=== PATIENT | male | born 1950 | race Caucasian/White ===

== ENCOUNTER 2018-08-27 08:12 | Inpatient (IN) | payer MEDICARE, BC ==
--- NOTE | 2018-08-20 11:09 | HP ---
HISTORY AND PHYSICAL: DATE OF ADMISSION/SURGERY: 08/27/18 DATE OF OFFICE VISIT: 08/17/18 SURGEON: Brittnee Narayanan MD* (dictated by LANCE Coreas). PROCEDURE: Right total knee arthroplasty. CHIEF COMPLAINT: Right knee pain. PRIMARY CARE PHYSICIAN: Dr. Malika Espinosa. HISTORY OF PRESENT ILLNESS: Mr. Davalos is a 67-year-old gentleman with complaints of right knee pain. He has failed conservative treatment and elected to proceed with a right total knee arthroplasty. PAST MEDICAL HISTORY: 1. Ulcerative colitis. 2. Hypertension. 3. Depression. 4. Anxiety. 5. Factor V Leiden. 6. History of DVT, bilateral lower extremities. PAST SURGICAL HISTORY: 1. Left rotator cuff repair. 2. Right ulnar nerve decompression. CURRENT MEDICATIONS: 1. Multivitamin. 2. Glucosamine and chondroitin. 3. Probiotics. 4. Vitamin C. 5. Fish oil. 6. Sulfasalazine 500 mg two tabs 5 times a day. 7. Losartan potassium 50 mg. 8. Tramadol 50 mg as needed. ALLERGIES: No known drug allergies. FAMILY HISTORY: Cancer and coronary artery disease. SOCIAL HISTORY: This is a 67-year-old gentleman who lives alone. He does not smoke or use drugs. REVIEW OF SYSTEMS: A complete 14-point review of systems was reviewed with the patient. It is positive for history of DVT in bilateral lower extremities, occasional palpitations, nausea and vomiting with anesthesia. He denies history of hepatitis or HIV. PHYSICAL EXAMINATION GENERAL: He is well developed, well nourished, in no acute distress. VITAL SIGNS: He stands 68 inches tall, weighs 168 pounds, blood pressure 120/68 , heart rate 74. HEENT: Normocephalic, atraumatic. NECK: Supple. No palpable lymph nodes. PULMONARY: Lungs are clear to auscultation bilaterally. CARDIO: Regular rate and rhythm. Strong S1 and S2. ABDOMEN: Soft, nontender, nondistended. NEUROLOGICAL: He is alert and oriented x3. MUSCULOSKELETAL: Right lower extremity: The skin is intact. There are no open wounds or abrasions. There is a moderate effusion of the right knee joint. There is a severe varus deformity of 15 degrees. Range of motion is 15 to 100 degrees of flexion. He has 2+ dorsalis pedis pulse and intact sensation. ASSESSMENT AND PLAN: Mr. Davalos is a 67-year-old gentleman with end-stage osteoarthritis of the right knee pain. He has failed conservative treatment and elected to proceed with a right total knee arthroplasty. The surgery is scheduled for 08/27/[address] Narayanan discussed the risks and benefits of the surgery at today's visit and all of his questions were answered. He will follow up with Dr. Narayanan 2 weeks after the surgery. Postoperatively, he will be placed on Xarelto for DVT prophylaxis per Dr. Espinosa and no TXA will be used in this patient. LANCE COREAS [id number]/[facility] #: [id number] MTDD
[~2018-08-27 08:12] MED LIST: Acetaminophen TAB* 325 MG ONE; Buffered Lidocaine 1% SYRIN* 1 ML/SYRINGE INTRADERM ONE; Dexamethasone IV* 4 MG/ML 1 ML (4 MG) ONE; Famotidine TAB* 20 MG ONE; Gabapentin CAP(*) 300 MG ONE; Lactated Ringers 1000 ML Bag* 1,000 ML IV SCH; Lidocaine 1%* 5 ML VIAL ONE; ROPIVACAINE 5 MG/ML 30 ML BTL (0.5%) ONE; ceFAZolin 2 GM PREMIX in ORs 2 GM/50 ML BAG IVPB ONE; celeCOXIB CAP* 100 MG ONE
--- OUTSIDE RECORDS SUMMARY | 2018-08-27 08:17 | XMS REPORT | Continuity of Care Document ---
:1950 External Reference #:[id number] Author Name LANCE Lee Address [address], [place] [address] Care Team Providers Name Role Phone Malika Espinosa MD Primary Care Physician Unavailable Payers Date Identification Numbers Payment Provider Subscriber Policy Number: [id number] Medicare Rosemary Davalos PayID: [id number] [address] [place] [address] Expires: 2018 Policy Number: [id number] Medicare Rosemary Mosquedast PayID: [id number] [address] [place] [address] Effective: 2012 Policy Number: [id number] [facility] Rosemary Mosquedast PayID: [id number] [address] [address] Expires: 2012 Policy Number: [id number] [facility] Rosemary Mosquedast PayID: [id number] [place] [address] Advance Directives Description No Information Available Problems Active Problems Provider Date Ulcerative colitis Linda Perez M.D., FACP Onset: 12/29/2010 Benign essential hypertension Linda Perez M.D., FACP Onset: 12/29/2010 Thrombophlebitis of the femoral vein Linda Perez M.D., FACP Onset: 2010 Depressive disorder Linda Perez M.D., FACP Onset: 02/01/2011 Full thickness rotator cuff tear Afsaneh Gutierrez MD Onset: 01/17/2017 Localized, primary osteoarthritis Brittnee Narayanan M.D. Onset: 10/29/2014 Headache Khoi Hathaway M.D. 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 Cigarette Use Quit 31 Years Ago Tobacco Use Start: Unknown Never Smoked Cigars Tobacco Use Start: Unknown Never Smoked A Pipe Smoking Status Reviewed: 08/17/18 Never Smoked A Pipe Smokeless Tobacco Never Used Smokeless Tobacco ETOH Use Denies alcohol use Tobacco Use Start: Unknown End: Patient is a former smoker quit 1988 Unknown Exercise Type/Frequency Exercises regularly Allergies, Adverse Reactions, Alerts Active Allergies Reaction Severity Comments Date No Known Drug Allergy 01/21/2010 Medications Active Medications SIG Qnty Indications Ordering Provider Date Tramadol HCL 2 tabs by mouth 60tabs 719.88 Khoi Hathaway, 02/21/2012 50mg every night M.D. Tablets Sulfazine Ec Take Two Tablets 300tabs Linda Perez, 02/25/2011 500mg By Mouth Five M.D., FACP Tablets DR Times A Day Losartan Potassium Take One Tablet 90tabs 401.1 Linda Perez, 02/07/2011 50mg By Mouth Every M.D., FACP Tablets Day Multi-Day Vitamins 1 po qd Unknown Tablets Glucosamine 1 po qd Unknown Chondroitin 1500 Complex 1500Com Capsules Probiotic Acidophilus once a day 30caps Unknown Capsules Vitamin C 1 po qd Unknown 500mg Capsules Fish Oil 1 po qd 90caps Unknown 1200mg Capsules History Medications Gabapentin 4 tabs by mouth qpm 180caps 356.8 Mariajose Carlson, 09/09/2013 - 100mg M.D. 11/27/2017 Capsules Xanax one by mouth up to 20tabs 300.00 Linda Perez, 08/12/2013 - 0.25mg Tablets three times daily as M.D., FACP 03/14/2014 needed for anxiety Gabapentin Take Two Capsules By 180caps 719.49 Linda Perez, 04/08/2013 - 300mg Mouth AT Bedtime M.D., FACP 08/15/2013 Capsules Cymbalta 1 by mouth every day 30caps 719.49 Linda Perez, 12/27/2012 - 30mg Caps DR Olson, FACP 01/11/2013 Part Gabapentin 1 po hs (says he is 719.49 Linda Perez, 08/29/2012 - 400mg taking 500mg) M.D., FACP 04/08/2013 Capsules Viibryd 1 po qd 30tabs 311 Linda Perez, 08/29/2012 - 40mg Tablets M.D., FACP 12/27/2012 Gabapentin 2 capsules at hour of 180caps 719.49 Linda Perez, 06/07/2012 - 300mg sleep M.D., FACP 08/29/2012 Capsules Gabapentin 1-3 at night 90caps 719.49 Linda Perez, 04/05/2012 - 100mg M.D., FACP 06/07/2012 Capsules Atorvastatin Calcium Take One Tablet By 90tabs 272.0 Linda Perez, 2011 - Mouth Once Daily M.D., FACP 03/14/2014 10mg Tablets Hydrocodone/Acetamin 1-2 tabs by mouth 30tabs 719.88 Linda Perez, 2011 - ophen every 6 hours as M.D., FACP 12/27/2012 5-325mg Tablets needed Viagra Take One Tablet By 12tabs Lindaamanda Perez, 08/01/2011 - 50mg Tablets Mouth 1 Hour Before M.D., FACP 03/13/2013 Rossie as Needed Staxyn one by mouth as 15tabs 607.89 Linda Perez, 02/28/2011 - 10mg Tablets needed. M.D., FACP 08/01/2011 Dispers Doxycycline Hyclate take two at one time 2caps Linda Perez, 02/09/2011 - M.D., FACP 02/28/2011 100mg Capsules Coumadin Take as Directed 60tabs Linda Perez, 01/31/2011 - 5mg Tablets M.D., FACP 02/21/2012 Coumadin two daily as directed 60units Linda Perez, 01/26/2011 - 5mg Solution M.D., FACP 01/31/2011 Rec Lovenox 1 subcutaneously q12h 8units Linda Perez, 01/26/2011 - 100mg/ml as directed M.D., FACP 01/31/2011 Solution Percocet 1-2 po q4h prn pain 40tabs Linda Perez, 12/29/2010 - 5-325mg M.D., FACP 02/28/2011 Tablets Cymbalta 1 by mouth every day 14caps 311 Linda Perez, 12/29/2010 - 30mg Caps DR Olson, FACP 03/16/2011 Part Vicodin 1 by mouth every 12 20tabs Linda Perez, 08/06/2010 - 5-500mg hours as needed for M.D., FACP 12/29/2010 Tablets pain Sulfasalazine 2 tabs four times 240tabs Linda Perez, 02/25/2010 - 500mg daily M.D., FACP 02/25/[address] Sulfasalazine 2 tabs four-five 240tabs Linda Perez, 02/01/2010 - 500mg times daily M.D., FACP 02/25/2010 Tablets Wellbutrin XL 1 tablet q 2 days 90tabs Linda Perez, 01/07/2010 - 150mg M.D., FACP 02/07/2011 Tablets ER 24HR Viagra po 1 tab 1h before 12tabs Linda Perez, 01/07/2010 - 50mg Tablets intercourse prn M.D., FACP 01/07/2010 Cialis 1 By Mouth 1 Hour 12tabs Linda Perez, 01/07/2010 - 10mg Tablets Before Rossie as M.D., FACP 02/25/2010 Needed Physical Therapy Linda Perez, - R M.D., FACP 02/25/2010 Hip/Knee Pain Celebrex 1 po qd 30caps Unknown - 100mg 12/29/2010 Capsules Vitamin B Complex 1 po qd Unknown - 04/05/2012 Capsules Bupropion HCL ER 1 by mouth every day 90tabs Unknown - (XL) 11/27/2017 150mg Tablets ER 24HR Medications Administered in Office Medication SIG Qnty Indications Ordering Provider Date Triamcinolone (Kenalog) Afsaneh Gutierrez MD 06/22/2018 Injection Triamcinolone (Kenalog) Afsaneh Gutierrez MD 06/22/2018 Injection Triamcinolone (Kenalog) Afsaneh Gutierrez MD 11/28/2017 Injection Triamcinolone (Kenalog) Afsaneh Gutierrez MD 11/28/2017 Injection Triamcinolone (Kenalog) Afsaneh Gutierrez MD 01/17/2017 Injection Triamcinolone (Kenalog) Afsaneh Gutierrez MD 01/17/2017 Injection Triamcinolone (Kenalog) Afsaneh Gutierrez MD 10/28/2016 Injection Triamcinolone (Kenalog) Afsaneh Gutierrez MD 10/28/2016 Injection Depomedrol 40MG Enid San M.D. 07/25/2016 Injection Immunizations CPT Code Status Date Vaccine Lot # [id number] Given 03/13/2013 Flu Vaccine Split Virus Preservative Free For [id number] Indiv 3Yr Older [id number] Given 04/05/2012 Zoster (Zostavax) [id number] Given 02/21/2012 Fluvirin Im 3Yrs And Older [id number] Given 01/27/2011 Influenza Virus 3Yrs & Over [id number] 93739 Given 02/25/2010 Influenza Virus 3Yrs & Over Vital Signs Date Vital Result Comment 08/17/2018 1:34pm Height 68 inches 5'8" Weight 168.50 lb Heart Rate 74 /min BP Systolic 120 mmHg BP Diastolic 68 mmHg Body Temperature 97.5 F Pain Level 8 BMI (Body Mass Index) 25.6 kg/m2 07/20/2018 4:02pm Height 68 inches 5'8" Weight 167.00 lb Heart Rate 70 /min BP Systolic 130 mmHg BP Diastolic 74 mmHg Respiratory Rate 20 /min Pain Level 6 BMI (Body Mass Index) 25.4 kg/m2 06/22/2018 10:36am Height 68 inches 5'8" Weight 170.00 lb BP Systolic 124 mmHg BP Diastolic 62 mmHg Pain Level 5 BMI (Body Mass Index) 25.8 kg/m2 04/16/2018 3:56pm Height 68 inches 5'8" Weight 167.00 lb Heart Rate 167 /min BP Systolic 167 mmHg BP Diastolic 80 mmHg BMI (Body Mass Index) 25.4 kg/m2 12/11/2017 2:21pm Height 69 inches 5'9" Weight 172.00 lb BP Systolic 116 mmHg BP Diastolic 69 mmHg Respiratory Rate 16 /min Pain Level 2 BMI (Body Mass Index) 25.4 kg/m2 11/28/2017 1:11pm Height 69 inches 5'9" Weight 175.00 lb Heart Rate 67 /min Respiratory Rate 15 /min Pain Level 6 BMI (Body Mass Index) 25.8 kg/m2 11/24/2017 1:12pm Height 69 inches 5'9" Weight 181.00 lb BP Systolic 120 mmHg BP Diastolic 76 mmHg Body Temperature 97.8 F BMI (Body Mass Index) 26.7 kg/m2 01/17/2017 1:04pm Height 69 inches 5'9" Weight 196.00 lb Heart Rate 76 /min BP Systolic 128 mmHg BP Diastolic 81 mmHg Pain Level 6 BMI (Body Mass Index) 28.9 kg/m2 10/28/2016 9:25am Height 69 inches 5'9" Weight 191.00 lb BP Systolic 140 mmHg BP Diastolic 81 mmHg Respiratory Rate 18 /min Pain Level 7 BMI (Body Mass Index) 28.2 kg/m2 08/24/2016 3:34pm Height 69 inches 5'9" Weight 188.00 lb Heart Rate 79 /min BP Systolic 127 mmHg BP Diastolic 77 mmHg Body Temperature 97.4 F Pain Level 3 BMI (Body Mass Index) 27.8 kg/m2 07/25/2016 11:10am Height 69 inches 5'9" Weight 193.00 lb Heart Rate 78 /min BP Systolic 136 mmHg BP Diastolic 82 mmHg Respiratory Rate 18 /min Body Temperature 98.7 F Pain Level 5 BMI (Body Mass Index) 28.5 kg/m2 10/29/2014 4:32pm Height 69 inches 5'9" Weight 193.00 lb Heart Rate 76 /min BP Systolic 139 mmHg BP Diastolic 76 mmHg Pain Level 5 BMI (Body Mass Index) 28.5 kg/m2 10/28/2014 11:50am Height 69 inches 5'9" Weight 200.00 lb Heart Rate 56 /min BP Systolic Sitting 128 mmHg BP Diastolic Sitting 72 mmHg Respiratory Rate 16 /min BMI (Body Mass Index) 29.5 kg/m2 06/24/2014 3:48pm Height 69 inches 5'9" Heart Rate 79 /min BP Systolic Sitting 128 mmHg BP Diastolic Sitting 70 mmHg Respiratory Rate 16 /min O2 % BldC Oximetry 97 % 03/18/2014 3:14pm Height 69 inches 5'9" Weight 191.00 lb Heart Rate 80 /min BP Systolic Sitting 130 mmHg BP Diastolic Sitting 78 mmHg Respiratory Rate 16 /min BMI (Body Mass Index) 28.2 kg/m2 09/09/2013 1:40pm Weight 200.00 lb w/shoes Heart Rate 84 /min BP Systolic Sitting 112 mmHg BP Diastolic Sitting 68 mmHg Body Temperature 98.3 F 09/06/2013 10:30am Weight 201.50 lb Heart Rate 88 /min BP Systolic Sitting 124 mmHg BP Diastolic Sitting 64 mmHg Body Temperature 97.8 F 08/21/2013 4:09pm Weight 201.00 lb Heart Rate 70 /min BP Systolic Sitting 124 mmHg BP Diastolic Sitting 80 mmHg 08/15/2013 12:55pm Weight 201.50 lb with shoes Heart Rate 76 /min BP Systolic 144 mmHg BP Diastolic 78 mmHg Respiratory Rate 16 /min Body Temperature 98.4 F 08/12/2013 2:35pm Heart Rate 88 /min BP Systolic Sitting 130 mmHg BP Diastolic Sitting 86 mmHg 08/12/2013 9:56am Weight 202.00 lb Heart Rate 84 /min BP Systolic Sitting 130 mmHg BP Diastolic Sitting 68 mmHg Body Temperature 98.1 F 04/08/2013 9:48am Height 68.5 inches 5'8.50" Weight 202.00 lb Heart Rate 98 /min BP Systolic Sitting 142 mmHg BP Diastolic Sitting 80 mmHg BMI (Body Mass Index) 30.3 kg/m2 03/13/2013 9:25am Weight 207.25 lb Heart Rate 80 /min BP Systolic 132 mmHg BP Diastolic 66 mmHg 01/11/2013 3:47pm Weight 208.75 lb Heart Rate 86 /min BP Systolic Sitting 130 mmHg BP Diastolic Sitting 78 mmHg 12/27/2012 4:25pm Weight 210.00 lb Heart Rate 72 /min BP Systolic Sitting 130 mmHg BP Diastolic Sitting 70 mmHg 08/29/2012 9:15am Weight 210.00 lb Heart Rate 80 /min BP Systolic Sitting 132 mmHg BP Diastolic Sitting 84 mmHg 06/06/2012 2:51pm Height 68.5 inches 5'8.50" Weight 217.00 lb Heart Rate 78 /min BP Systolic Sitting 130 mmHg BP Diastolic Sitting 70 mmHg BMI (Body Mass Index) 32.5 kg/m2 04/05/2012 2:39pm Height 68.5 inches 5'8.50" Weight 215.00 lb Heart Rate 82 /min BP Systolic Sitting 138 mmHg BP Diastolic Sitting 80 mmHg BMI (Body Mass Index) 32.2 kg/m2 02/21/2012 9:59am Height 69.25 inches 5'9.25" Weight 219.00 lb Heart Rate 80 /min BP Systolic Sitting 142 mmHg BP Diastolic Sitting 76 mmHg BMI (Body Mass Index) 32.1 kg/m2 05/11/2011 4:09pm Height 69.25 inches 5'9.25" Weight 216.00 lb Heart Rate 80 /min BP Systolic Sitting 142 mmHg His BP machine 167/98, 151/96 BP Diastolic Sitting 80 mmHg His BP machine 167/98, 151/96 BMI (Body Mass Index) 31.7 kg/m2 03/16/2011 2:30pm Height 69.25 inches 5'9.25" Weight 211.00 lb Heart Rate 80 /min BP Systolic Sitting 124 mmHg BP Diastolic Sitting 70 mmHg BMI (Body Mass Index) 30.9 kg/m2 02/28/2011 11:01am Height 69.25 inches 5'9.25" Weight 205.00 lb Heart Rate 76 /min BP Diastolic 160 mmHg BP Systolic Sitting 160 mmHg BP Diastolic Sitting 82 mmHg BMI (Body Mass Index) 30.1 kg/m2 02/07/2011 10:35am Height 69.25 inches 5'9.25" Weight 215.00 lb Heart Rate 72 /min BP Systolic Sitting 162 mmHg BP Diastolic Sitting 84 mmHg BMI (Body Mass Index) 31.5 kg/m2 01/27/2011 1:23pm Height 69.25 inches 5'9.25" Weight 213.00 lb Heart Rate 78 /min BP Systolic Sitting 144 mmHg BP Diastolic Sitting 80 mmHg BMI (Body Mass Index) 31.2 kg/m2 01/25/2011 4:10pm Height 69.25 inches 5'9.25" Weight 209.00 lb Heart Rate 80 /min BP Systolic Sitting 140 mmHg L BP Diastolic Sitting 82 mmHg L BMI (Body Mass Index) 30.6 kg/m2 12/29/2010 2:36pm Height 69.25 inches 5'9.25" Weight 222.00 lb Heart Rate 80 /min BP Systolic Sitting 148 mmHg 142/92(lg.cuff)repeat BP Diastolic Sitting 90 mmHg 142/92(lg.cuff)repeat BMI (Body Mass Index) 32.5 kg/m2 02/25/2010 11:23am Weight 209.00 lb with shoes Heart Rate 78 /min BP Systolic 140 mmHg BP Diastolic 78 mmHg 01/25/2010 10:43am Weight 204.25 lb Heart Rate 68 /min BP Systolic 126 mmHg BP Diastolic 80 mmHg Results Test Date Facility Test Result H/L Range Note CBC Auto Diff 08/17/2018 [facility] White Blood 5.8 10^3/uL N 3.5-10.[address] [place] [address] [phone] Red Blood Count 4.62 10^6/uL N 4.18-5.48 Hemoglobin 14.2 g/dL N 14.0-18.0 Hematocrit 42 % N 36-46 Mean Corpuscular Volume 91 fL N 80-94 Mean Corpuscular Hemoglobin 31 pg N 27-31 Mean Corpuscular HGB Conc 34 g/dL N 31-36 Red Cell Distribution Width 13 % N 10.5-15 Platelet Count 292 10^3/uL N 150-450 Mean Platelet Volume 7.5 fL N 7.4-10.4 Abs Neutrophils 4.4 10^3/uL N 1.5-7.7 Abs Lymphocytes 1.0 10^3/uL N 1.0-4.8 Abs Monocytes 0.4 10^3/uL N 0-0.8 Abs Eosinophils 0 10^3/uL N 0-0.6 Abs Basophils 0 10^3/uL N 0-0.2 Abs Nucleated RBC 0 10^3/uL Granulocyte % 75.7 % Lymphocyte % 16.4 % Monocyte % 6.7 % Eosinophil % 0.6 % Basophil % 0.6 % Nucleated Red Blood Cells % 0 Urinalysis Profile 08/17/2018 [facility] Urine Color Yellow [address] [place] [address] [phone] Urine Appearance Clear Urine Specific [place] 1.013 N 1.010-1.030 Urine pH 6.0 N 5-9 Urine Urobilinogen Negative Negative Urine Ketones Negative Negative Urine Protein Negative Negative Urine Leukocytes Negative Negative Urine Blood Negative Negative * * Abnormal Negative 1 Urine Nitrite Negative Negative Urine Bilirubin Negative Negative Urine Glucose Negative Negative Comp Metabolic Panel 08/17/2018 [facility] Sodium 138 mmol/L N 135-145 [address] [place] [address] [phone] Potassium 4.1 mmol/L N 3.5-5.0 Chloride 104 mmol/L N 101-111 Co2 Carbon Dioxide 29 mmol/L N 22-32 Anion Gap 5 mmol/L N 2-11 Glucose 94 mg/dL N 70-100 Blood Urea Nitrogen 15 mg/dL N 6-24 Creatinine 0.80 mg/dL N 0.67-1.17 BUN/Creatinine Ratio 18.8 N 8-20 Calcium 9.6 mg/dL N 8.6-10.3 Total Protein 6.7 g/dL N 6.4-8.9 Albumin 4.5 g/dL N 3.2-5.2 Globulin 2.2 g/dL N 2-4 Albumin/Globulin Ratio 2.0 N 1-3 Total Bilirubin 0.50 mg/dL N 0.2-1.0 Alkaline Phosphatase 56 U/L N 34-104 Alt 14 U/L N 7-52 Ast 19 U/L N 13-39 Egfr Non- 96.1 >60 Egfr 116.3 >60 2 Inr/Protime 08/17/2018 [facility] Inr 0.94 N 0.77-1.[address] [place], [place] [id number] [phone] Laboratory test 08/17/2018 [facility] Partial 28.0 seconds N 26.0-36.[address] [place] [address] PTT [phone] Type & Screen 08/17/2018 [facility] Patient A Positive [address] [place] [address] [phone] Antibody Screen NEGATIVE Urine Culture And 08/17/2018 [facility] Urine Culture SEE RESULT [address] [place], [place] [address] [phone] CBC Auto Diff 12/05/2017 [facility] White Blood 6.9 10^3/uL N 3.5-[address] Count .8 [place], [place] [id number] [phone] Red Blood Count 4.61 10^6/uL N 4.00-5.40 Hemoglobin 14.3 g/dL N 14.0-18.0 Hematocrit 42 % N 42-52 Mean Corpuscular Volume 91 fL N 80-94 Mean Corpuscular Hemoglobin 31 pg N 27-31 Mean Corpuscular HGB Conc 34 g/dL N 31-36 Red Cell Distribution Width 13 % N 10.5-15 Platelet Count 283 10^3/uL N 150-450 Mean Platelet Volume 6.8 um3 Low 7.4-10.4 Abs Neutrophils 5.7 10^3/uL N 1.5-7.7 Abs Lymphocytes 0.8 10^3/uL Low 1.0-4.8 Abs Monocytes 0.4 10^3/uL N 0-0.8 Abs Eosinophils 0 10^3/uL N 0-0.6 Abs Basophils 0 10^3/uL N 0-0.2 Abs Nucleated RBC 0 10^3/uL Granulocyte % 82.9 % N 38-83 Lymphocyte % 10.9 % Low 25-47 Monocyte % 5.3 % N 0-7 Eosinophil % 0.4 % N 0-6 Basophil % 0.5 % N 0-2 Nucleated Red Blood Cells % 0.1 Laboratory test 12/05/2017 [facility] Anti Thrombin 94 % 80 - 130 [address] [place] [address] [phone] Protein S Antigen 86 % 65 - 160 5 Protein C Activity 109 % 70 - 150 6 Factor V Activity 51 % Abnormal 70 - 165 7 Protein S Activity 77 % 65 - 160 8 Protein C Ag 96 % 70-150 9 Cardiolipin 12/05/2017 [facility] Phospholipid Ab < 9.4 MPL 10 Igg/Igm [address] IgM, [place] [address] [phone] Phospholipid Ab IgG < 9.4 GPL 11 Laboratory test 12/05/2017 [facility] Cardiolipin Iga < 9.4 APL [address] [place] [address] [phone] Vitamin D, 25 09/06/2013 [facility] 25-Hydroxy Vitamin <4.0 ng/ mL N Hydroxy [address] D2 [place] [address] [phone] 25-Hydroxy Vitamin D3 40 ng/mL N 25-Hydroxy Vitamin D Total 40 ng/mL N 13 CBC With 09/06/2013 [facility] White Blood 4.7 10^3/uL Low 4.8 -10.8 Manual Diff [address] [place] [address] [phone] Red Blood Count 4.60 10^6/uL N 4.0-5.4 Hemoglobin 14.0 g/dL N 14.0-18.0 Hematocrit 41 % Low 42-52 Mean Corpuscular Volume 89 fL N 80-94 Mean Corpuscular Hemoglobin 31 pg N 27-31 Mean Corpuscular HGB Conc 34 g/dL N 31-36 Red Cell Distribution Width 13 % N 10.5-15 Platelet Count 265 10^3/uL N 150-450 Mean Platelet Volume 8 um3 N 7.4-10.4 Abs Neutrophils 3.2 10^3/uL N 1.5-7.7 Abs Lymphocytes 1.0 10^3/uL N 1.0-4.8 Abs Monocytes 0.4 10^3/uL N 0-0.8 Abs Eosinophils 0 10^3/uL N 0-0.6 Abs Basophils 0 10^3/uL N 0-0.2 Abs Nucleated RBC 0 10^3/uL N Neutrophil % 72 % N 38-83 Lymphocytes % 17 % Low 25-47 Monocytes % 7 % N 0-13 Eosinophils % 1 % N 0-6 Basophil % 1 % N 0-2 Reactive Lymph % 2 % N 0-6 RBC Morphology Normal N Normal Protein 09/06/2013 [facility] Total 7.1 g/dL N 6.3 - Electrophoresis [address] Protein(Pep) 7.9 [place] [address] [phone] Albumin 3.9 g/dL N 3.4-4.7 Alpha-1 Globulin 0.2 g/dL N 0.1-0.3 Alpha-2 Globulin 0.9 g/dL N 0.6-1.0 Beta Globulin 0.9 g/dL N 0.7-1.2 Gamma Globulin 1.2 g/dL N 0.6-1.6 Albumin/Globulin Ratio 1.24 N Impression See Comment N 14 Laboratory test 09/06/2013 [facility] Vitamin B12 527 pg/mL N 180-914 [address] [place] [address] [phone] Laboratory test 03/13/2013 [facility] TSH (Thyroid 1.83 0.34- 5.60 [address] Stimulating miu/[place] [address] Horm) [phone] CBC Auto Diff 03/13/2013 [facility] White Blood 4.7 Low 4.8- 10.[address] Count 10^3/[place] [address] [phone] Red Blood Count 4.50 10^6/uL 4.0-5.4 Hemoglobin 14.3 g/dL 14.0-18.0 Hematocrit 41 % Low 42-52 Mean Corpuscular Volume 92 fL 80-94 Mean Corpuscular Hemoglobin 32 pg High 27-31 Mean Corpuscular HGB Conc 35 g/dL 31-36 Red Cell Distribution Width 13 % 10.5-15 Platelet Count 244 10^3/uL 150-450 Mean Platelet Volume 8 um3 7.4-10.4 Abs Neutrophils 3.0 10^3/uL 1.5-7.7 Abs Lymphocytes 1.1 10^3/uL 1.0-4.8 Abs Monocytes 0.4 10^3/uL 0-0.8 Abs Eosinophils 0.1 10^3/uL 0-0.6 Abs Basophils 0 10^3/uL 0-0.2 Abs Nucleated RBC 0 10^3/uL Granulocyte % 64.9 % 38-83 Lymphocyte % 24.2 % Low 25-47 Monocyte % 8.6 % 1-9 Eosinophil % 1.4 % 0-6 Basophil % 0.9 % 0-2 Nucleated Red Blood Cells % 0 Laboratory test 03/13/2013 [facility] Lyme Disease Negative Negative [address] [place] [address] [phone] Comp Metabolic 03/13/2013 [facility] Sodium 139 mmol/L 133- 145 Panel [address] [place] [address] [phone] Potassium 4.4 mmol/L 3.5-5.0 Chloride 105 mmol/L 101-111 Co2 Carbon Dioxide 29.0 mmol/L 22-32 Anion Gap 5.0 mmol/L 2-11 Glucose 96 mg/dL 70-100 Blood Urea Nitrogen 8 mg/dL 6-24 Creatinine 0.90 mg/dL 0.50-1.40 BUN/Creatinine Ratio 8.9 8-20 Calcium 9.4 mg/dL 8.1-9.9 Total Protein 6.7 g/dL 6.2-8.1 Albumin 4.2 g/dL 3.2-5.2 Globulin 2.5 g/dL 2-4 Albumin/Globulin Ratio 1.7 1-3 Total Bilirubin 0.6 mg/dL 0.4-1.5 Alkaline Phosphatase 58 U/L 30-110 Alt 18 U/L 14-54 Ast 20 U/L 12-42 Egfr Non- 85.2 >60 Egfr 109.6 >60 18 Lipid Profile 03/13/2013 [facility] Triglycerides 84 mg/dL 40 -200 (Trig/Chol/HDL) [address] [place] [address] [phone] Cholesterol 191 mg/dL Less than 200 HDL Cholesterol 73 mg/dL High 40-60 19 Cholesterol/HDL Ratio 2.6 Average 1-4.44 LDL Cholesterol 101.2 High Less Than 100 20 Surgical 02/11/2013 [facility] S RUN DATE: [address] 02/13/ <[place] [address] NOTE> [phone] Lipid Profile 06/04/2012 [facility] Triglycerides 78 mg/dL 40 -200 (Trig/Chol/HDL) [address] [place] [address] [phone] Cholesterol 189 mg/dL Less than 200 HDL Cholesterol 81 mg/dL High 40-60 22 Cholesterol/HDL Ratio 2.3 Average 1-4.44 LDL Cholesterol 92.4 mg/dL Less Than 100 23 Liver Function 06/04/2012 [facility] Total Protein 5.8 g/dL Low 6.2-8.[address] [place] [address] [phone] Albumin 4.0 g/dL 3.2-5.2 Globulin 1.8 g/dL Low 2-4 Albumin/Globulin Ratio 2.2 1-3 Total Bilirubin 0.7 mg/dL 0.4-1.5 Direct Bilirubin 0.1 mg/dL 0.1-0.5 Indirect Bilirubin 0.6 mg/dL 0.3-1.0 Alkaline Phosphatase 58 U/L 30-110 Alt 18 U/L 14-54 Ast 21 U/L 12-42 Ua Routine 04/05/2012 [facility] Ua Specific [place] 1.010 Ua PH 6 Ua Color yellow Ua Appera clear Ua WBC neg Ua Protein trace Ua Glucose neg Ua Ketones neg Ua Bilirubin neg Ua Urobilinogen neg Ua Nitrite neg Ua Occult Blood neg Comp Metabolic Panel 03/27/2012 [facility] Sodium 140 mmol/L 133-145 [address] [place] [address] [phone] Potassium 4.2 mmol/L 3.5-5.0 Chloride 107 mmol/L 101-111 Co2 Carbon Dioxide 27.0 mmol/L 22-32 Anion Gap 6.0 mmol/L 2-11 Glucose 89 mg/dL 70-100 Blood Urea Nitrogen 16 mg/dL 6-24 Creatinine 0.90 mg/dL 0.50-1.40 BUN/Creatinine Ratio 17.8 8-20 Calcium 9.1 mg/dL 8.1-9.9 Total Protein 6.0 GM/DL Low 6.2-8.1 Albumin 3.8 GM/DL 3.2-5.2 Globulin 2.2 GM/DL 2-4 Albumin/Globulin Ratio 1.7 1-3 Total Bilirubin 0.7 mg/dL 0.1-1.0 24 Alkaline Phosphatase 57 U/L 30-110 Alt 17 U/L 14-54 Ast 20 U/L 12-42 Egfr Non- 85.5 >60 Egfr 110.0 >60 25 Lipid Profile 03/27/2012 [facility] Triglycerides 108 mg/dL 40-200 (Trig/Chol/HDL) [address] [place] [address] [phone] Cholesterol 255 mg/dL High Less than 200 HDL Cholesterol 71 mg/dL High 40-60 26 Cholesterol/HDL Ratio 3.6 AVERAGE 1-4.44 LDL Cholesterol 162.4 mg/dL High Less Than 100 27 Laboratory test 03/27/2012 [facility] Vitamin B12 422 pg/mL 180-914 28 finding [address] [place] [address] [phone] CBC With Manual 03/27/2012 [facility] White Blood 4.7 Low 4.8- 10.8 Diff 101 [facility] Count 10^3/[place] [address] [phone] Red Blood Count 4.44 10^6/uL 4.0-5.4 Hemoglobin 13.7 g/dL Low 14.0-18.0 Hematocrit 41 % Low 42-52 Mean Corpuscular Volume 91 fL 80-94 Mean Corpuscular Hemoglobin 31 pg 27-31 Mean Corpuscular HGB Conc 34 g/dL 31-36 Red Cell Distribution Width 13 % 10.5-15 Platelet Count 246 10^3/uL 150-450 Mean Platelet Volume 7 um3 Low 7.4-10.4 Abs Neutrophils 2.4 10^3/uL 1.5-7.7 Abs Lymphocytes 1.7 10^3/uL 1.0-4.8 Abs Monocytes 0.5 10^3/uL 0-0.8 Abs Eosinophils 0.1 10^3/uL 0-0.6 Abs Basophils 0 10^3/uL 0-0.2 Abs Nucleated RBC 0 10^3/uL Neutrophil % 55.0 % 38-83 Band % 1.0 % 0-8 Lymphocytes % 38.0 % 25-47 Monocytes % 2.0 % 0-13 Eosinophils % 3.0 % 0-6 Basophil % 1.0 % 0-2 Reactive Lymph % 0 % 0-6 Metamyelocytes % 0 % 0-2 Myelocytes % 0 % 0-1 Promyelocytes % 0 % Blast % 0 % RBC Morphology Normal Normal Vitamin D 1,25 05/27/2011 [facility] Vitamin D, 1,25 41 pg/mL 18-64 29 And Vitamin D,[address] [place] [address] [phone] Vitamin D, 25 05/27/2011 [facility] 25-Hydroxy <4.0 ng/mL () Hydroxy [address] Vitamin D2 [place] [address] [phone] 25-Hydroxy Vitamin D3 36 ng/mL () 25-Hydroxy Vitamin D Total 36 ng/mL () 30 Protime 05/27/2011 [facility] Inr 1.62 High 0.88-1.[address] [place] [address] [phone] Protime 19.5 SEC High 10.3-13.5 32 International Normalized 04/29/2011 [facility] Inr 2.08 High 0.88-1.13 [address] [place] [address] [phone] Protime 25.3 SEC High 10.3-13.5 34 Protime 03/31/2011 [facility] Inr 2.10 High 0.88-1.[address] [place] [address] [phone] Protime 26.4 SEC High 10.3-13.5 36 GC/Chlamydia 03/16/2011 [facility] M [address] <SEE NOTE> [place], [place] [id number] [phone] Syphilis 03/16/2011 [facility] Syphilis TNP Nonreactive Screen [address] [place] [address] [phone] RPR NON-REACTIVE Nonreactive RPR Titer TNP Pediatric/Maternal NO Herpes Simplex 03/16/2011 [facility] Herpes Simplex Negative Negative Type 1&[address] Type 1 [place] [address] [phone] Herpex Simplex Type 2 Igg POSITIVE Negative 38 Laboratory test 03/16/2011 [facility] Herpes Simplex Negative Negative [address] Type 1 2 Igm [place], [place] [phone] Lipid Profile 03/03/2011 [facility] Triglyceride 105 mg/dL 40 -200 (Trig/Chol/HDL) [address] [place], [place] [id number] [phone] Cholesterol 212 mg/dL High Less Than 200 40 High Density Lipoprotein 66 mg/dL High 40-60 41 Cholesterol/HDL Ratio 3.21 AVERAGE 1-4.97 Low Density Lipoprotein 125 mg/dL High Less Than 100 42 International Normalized 03/03/2011 [facility] Inr 2.36 High 0.88-1.13 [address] [place] [address] [phone] Protime 28.8 SEC High 10.3-13.5 44 International Normalized 02/24/2011 [facility] Inr 2.55 High 0.88-1.13 [address] [place], [place] [address] [phone] Protime 31.3 SEC High 10.3-13.5 46 International Normalized 02/21/2011 [facility] Inr 2.83 High 0.82-1.[address] [place], [place] [address]36 [phone] Protime 35.3 SEC High 10.2-14.8 48 International Normalized 02/17/2011 [facility] Inr 1.71 High 0.86-1.13 49 Ratio [address] [place] [address] [phone] Protime 21.4 SEC High 10.88-13.62 50 International Normalized 02/14/2011 [facility] Inr 1.47 High 0.82-1.17 51 Ratio [address] [place] [address] [phone] Protime 17.7 SEC High 10.2-14.8 52 International Normalized 02/11/2011 [facility] Inr 1.45 High 0.82-1.17 53 Ratio [address] [place] [address] [phone] Protime 17.5 SEC High 10.2-14.8 54 Liver Function 02/10/2011 [facility] Total Protein 6.3 GM/DL 6.2-8.1 Panel [address] [place] [address] [phone] Albumin 3.8 GM/DL 3.2-5.2 Globulin 2.5 GM/DL 2-4 Albumin/Globulin Ratio 1.5 1-3 Bilirubin Total 0.8 mg/dL 0.4-1.5 55 Bilirubin Direct 0.1 mg/dL 0.1-0.5 Indirect Bilirubin 0.7 mg/dL 0.3-1.0 56 Alkaline Phosphatase 56 U/L 39-117 Alt (SGPT) 33 U/L 17-63 57 Ast (Sgot) 24 U/L 12-42 58 Laboratory test 02/10/2011 [facility] PSA Screening 0.98 NG/ML 0-4 59 finding [address] [place] [address] [phone] Protime 02/03/2011 [facility] Inr 2.01 High 0.82-1.[address] [place] [phone] Protime 24.6 SEC High 10.2-14.8 61 Comp Metabolic Panel 02/03/2011 [facility] Sodium 138 mmol/L 135-145 [address] [place] [address] [phone] Potassium 4.0 mmol/L 3.5-5.0 Chloride 105 mmol/L 101-111 Co2 (Carbon Dioxide) 24.0 mmol/L 22-32 Anion Gap 9.0 mmol/L 2-11 62 Glucose 98 mg/dL 70-100 BUN 12 mg/dL 6-24 Creatinine 0.9 mg/dL 0.50-1.40 One Over Creatinine 1.11 BUN/Creatinine Ratio 13.3 8-20 Calcium 8.5 mg/dL 8.1-9.9 Total Protein 5.7 GM/DL Low 6.2-8.1 Albumin 3.8 GM/DL 3.2-5.2 Globulin 1.9 GM/DL Low 2-4 Albumin/Globulin Ratio 2.0 1-3 Bilirubin Total 0.5 mg/dL 0.4-1.5 63 Alkaline Phosphatase 51 U/L 39-117 Alt (SGPT) 128 U/L High 17-63 Ast (Sgot) 58 U/L High 12-42 eGFR Non- 85.8 > 60 eGFR 110.3 > 60 64 CBC Auto Diff 02/03/2011 [facility] White Blood 5.2 CUMM 4.8- 10.[address] [place] [address] [phone] Red Cell Count 4.14 CUMM Low 4.6-6.2 Hemoglobin 12.8 g/dL Low 14.0-18.0 Hematocrit 38 % Low 42-52 Mean Corpuscular Volume 91 um3 80-94 Mean Corpuscular Hemoglob 31 pg 27-31 Mean Corpuscular HGB Cone 34 g/dL 32-36 Redcell Distribution WDTH 12 % 10.5-15 Platelet Count 291 CUMM 150-450 Mean Platelet Volume 7.8 um3 7.4-10.4 Gran % 60.8 % 38-83 Lymph % 25.7 % 25-47 Mononuclear % 10.7 % High 1-9 Eosinophil % 2.2 % 0-6 Basophil % 0.6 % 0-2 Abs Lymphs 1.3 1.0-4.8 Abs Mononuclear 0.6 0-0.8 Absolute Neutrophil Count 3.2 1.5-7.7 Abs Eosinophils 0.1 0-0.6 Abs Basophils 0 0-0.2 International Normalized 01/31/2011 [facility] Inr 2.50 High 0.82-1.[address] [place] [address] [phone] Protime 31.0 SEC High 10.2-14.8 66 Laboratory test 01/28/2011 [facility] Vad NONREACTIVE Nonreactive [address] [place] [address] [phone] Protime 01/28/2011 [facility] Inr 1.40 High 0.82-1.[address] [place] [address] [phone] Protime 16.8 SEC High 10.2-14.8 69 Laboratory test 01/28/2011 [facility] Anti Thrombin 96 % 80- 130 [address] [address] [phone] Anti Thrombin III Activity 95 % 80-130 71 1 *Ascorbic acid is present which may interfere with detection of blood. 2 Because ethnic data is not always readily available, this report includes an eGFR for both -Americans and non- Americans. The National Kidney Disease Education Program (NKDEP) does not endorse the use of the MDRD equation for patients that are not between the ages of 18 and 70, are , have extremes of body size, muscle mass, or nutritional status, or are non- or non-. According to the National Kidney Foundation, irrespective of diagnosis, the stage of the disease is based on the level of kidney function: Stage Description GFR(mL/min/1.73 m(2)) 1 Kidney damage with normal or decreased GFR 90 2 Kidney damage with mild decrease in GFR 60-89 3 Moderate decrease in GFR 30-59 4 Severe decrease in GFR 15-29 5 Kidney failure <15 (or dialysis) 3 SEE RESULT BELOW Name: ROSEMARY DAVALOS : [address]: Brittnee Narayanan MD Acct: [id number] Unit: [id number] AGE: 67 Location: [facility] Re08/17/18 SEX: M Status: REG REF SPEC: [id number] GUILHERME: 08/17/[address] [facility] [address]: Brittnee Narayanan MD REQ: [id number] RECD: 08/17/18 STATUS: COMP OTHR DR: Sulaiman Valiente, DO Malika Espinosa MD _ SOURCE: URINE SPDESC: ORDERED: Urine Culture QUERIES: Urine Source: Clean Catch Procedure Result Reported Site Urine Culture Final 08/18/18- 1604 ML No Growth (<1,000 CFU/mL) * ML - Main Lab . END OF REPORT DEPARTMENT OF PATHOLOGY, [address] [place] [id number] Noble Izquierdo M.D. Director [facility] # [id number] 4 Direct factor Xa inhibitor therapy (rivaroxaban (Xarelto), apixaban (Eliquis), edoxaban (Savaysa)) may interfere with the functional Xa based AT assay and cause an overestimation of AT activity thus potentially masking diagnosis of AT deficiency. Suggest clinical correlation and consider repeat AT testing remote from direct factor Xa inhibitor therapy, if clinically indicated. ADDITIONAL INFORMATION This test has been modified from the kiln repairer's instructions. Its performance characteristics were determined by [facility] in a manner consistent with CLIA requirements. This test has not been cleared or approved by the U.S. Food and Drug Administration. Test Performed by: [facility] - [address] [address] 5 ADDITIONAL INFORMATION This test has been modified from the kiln repairer's instructions. Its performance characteristics were determined by [facility] in a manner consistent with CLIA requirements. This test has not been cleared or approved by the U.S. Food and Drug Administration. Test Performed by: [facility] - [address] [address] 6 ADDITIONAL INFORMATION This test has been modified from the kiln repairer's instructions. Its performance characteristics were determined by [facility] in a manner consistent with CLIA requirements. This test has not been cleared or approved by the U.S. Food and Drug Administration. Test Performed by: [facility] - [address] [address] 7 ADDITIONAL INFORMATION This test has been modified from the kiln repairer's instructions. Its performance characteristics were determined by [facility] in a manner consistent with CLIA requirements. This test has not been cleared or approved by the U.S. Food and Drug Administration. Test Performed by: [facility] - [address] [address] 8 Anticoagulants (for example oral direct thrombin inhibitors like dabigatran, anti-Xa inhibitors like rivaroxaban, apixaban or edoxaban), heparin levels greater than 1 U/mL, inhibitors of the APTT test system (for example lupus anticoagulant), inhibitors of bovine factor V (for example antibodies that may arise in patients treated with certain bovine topical thrombin preparations) may produce a falsely normal or elevated protein S activity result. Suggest clinical correlation and if indicated consider repeat assay of protein S activity and/or antigen in the absence of anticoagulation therapy. ADDITIONAL INFORMATION This test has been modified from the kiln repairer's instructions. Its performance characteristics were determined by [facility] in a manner consistent with CLIA requirements. This test has not been cleared or approved by the U.S. Food and Drug Administration. Test Performed by: [facility] - [address] [address] 9 Test Performed by: [facility] - [address] [address] 10 REFERENCE VALUE <15.0 (Negative) 11 REFERENCE VALUE <15.0 (Negative) Test Performed by: [facility] - [address] [address] 12 REFERENCE VALUE <15.0 (Negative) Test Performed by: [address] [address] 13 -- REFERENCE VALUE -- 25-HYDROXY D TOTAL (D2+D3) Optimum levels in the healthy population are 20-50, patients with bone disease may benefit from higher levels within this range. Test Performed by: [place] [address] Program Dir: Doroteo Frias III, M.D. 14 RESULT: No apparent monoclonal protein on serum electrophoresis. Test Performed by: [place] [address] Program Dir: Doroteo Frias III, M.D. 15 Normal Range 180 to 914 Indeterminate Range 145 to 180 Deficient Range <145 16 FASTING 17 Serologic response to B. burgdorferi infection is not detected, but cannot rule out early infection during which low or undetectable antibody levels to B. burgdorferi may be present. If clinically indicated, a new serum specimen should be submitted in 7-14 days. Test Performed by: [place] [address] Program Dir: Doroteo Frias III, M.D. 18 Because ethnic data is not always readily available, this report includes an eGFR for both -Americans and non- Americans. The National Kidney Disease Education Program (NKDEP) does not endorse the use of the MDRD equation for patients that are not between the ages of 18 and 70, are , have extremes of body size, muscle mass, or nutritional status, or are non- or non-. According to the National Kidney Foundation, irrespective of diagnosis, the stage of the disease is based on the level of kidney function: Stage Description GFR(mL/min/1.73 m(2)) 1 Kidney damage with normal or decreased GFR 90 2 Kidney damage with mild decrease in GFR 60-89 3 Moderate decrease in GFR 30-59 4 Severe decrease in GFR 15-29 5 Kidney failure <15 (or dialysis) 19 HDL Interpretation: Undesirable: High Risk: Less than 40 mg/dL Desirable: Low Risk: Greater than 60 mg/dL 20 LDL Interpretation: Low Risk Optimal Level: LDL Less than 100 mg/dL Near or Above Optimal: LDL 100-129 mg/dL Borderline High Risk: LDL 130-159 mg/dL High Risk: LDL 160-189 mg/dL Very High Risk: LDL Greater than 189 mg/dL 21 RUN DATE: 02/13/13 [facility] LAB LIVE PAGE 1 RUN TIME: 1606 [address] [place], [place] [address] Specimen Inquiry Name: ROSEMARY DAVALOS : [address]: Matias Hemphill MD Acct: [id number] Unit: [id number] AGE: 62 Location: ENDO Re02/11/13 SEX: M Status: REG REF SPEC: [id number] GUILHERME: 02/11/13- SUBM DR: Matias Hemphill MD REQ: [id number] RECD: 02/11/13 STATUS: BASSAM MALDONADO DR: Linda Perez MD _ ORDERED: LEVEL IV/6 FINAL DIAGNOSIS 1. Colon, cecum, biopsies: A. Mild focally active colitis; see comment. B. No evidence of dysplasia. 2. Colon, right, biopsies: Benign colonic mucosa with no significant pathologic abnormalities. 3. Colon, transverse, biopsies: Benign colonic mucosa with no significant pathologic abnormalities. 4. Colon, descending, biopsies: Benign colonic mucosa with no significant pathologic abnormalities. 5. Colon, sigmoid, biopsies: Benign colonic mucosa with no significant pathologic abnormalities. 6. Colon, rectum, biopsies: A. Benign colonic mucosa with mild crypt architecture distortion compatible with inactive chronic colitis. B. No evidence of dysplasia. COMMENTS: In specimen 1 focal acute cryptitis is identified. There is no evidence of chronic irritation or significant crypt architecture distortion. The significance of this finding is unknown. CONTINUED ON NEXT PAGE * ML=Testing performed at Main Lab DEPARTMENT OF PATHOLOGY, [facility] [employer] [place], [place] [address] Noble Izquierdo M.D. Director [facility] Permit #[id number] RUN DATE: 02/13/13 [facility] LAB LIVE PAGE 2 RUN TIME: [address] [facility] [employer] [place], [place] [address] Specimen Inquiry Patient: ROSEMARY DAVALOS [id number] (Continued) SPECIMEN COMMENTS (Continued) CLINICAL HISTORY Screening colonoscopy with ulcerative colitis POST-OPERATIVE DIAGNOSIS Screening colonoscopy into cecum, prep good - inactive colitis, no polyps. Surveillance biopsies obtained GROSS DESCRIPTION 1. The specimen is received in formalin labeled Rosemary Davalos, Cecal Biopsies, and consists of four portions of white-cisneros tissue that each measure 0.6 x 0.2 x 0.2 cm. Submitted entirely, one cassette. 2. The specimen is received in formalin labeled Rosemary Davalos, Right Colon Biopsies, and consists of multiple portions of cisneros-white tissue that in aggregate measure 1.0 x 0.4 x 0.2 cm. Submitted entirely, one cassette. 3. The specimen is received in formalin labeled Rosemary Davalos, Transverse Colon Biopsies, and consists of multiple portions of white-cisneros tissue that in aggregate measure 1.0 x 0.5 x 0.2 cm. Submitted entirely, one cassette. 4. The specimen is received in formalin labeled Rosemary Davalos, Descending Colon Biopsies, and consists of multiple portions of white-cisneros tissue that in aggregate measure 0.6 x 0.5 x 0.2 cm. Submitted entirely, one cassette. 5. The specimen is received in formalin labeled Rosemary Davalos, Sigmoid Colon Biopsies, and consists of multiple portions of white-cisneros tissue that in aggregate measure 1.0 x 0.8 x 0.2 cm. Submitted entirely, one cassette. 6. The specimen is received in formalin labeled Rosemary Davalos, Rectal Biopsies, and consists of multiple portions of white-cisneros tissue that in aggregate measure 0.6 x 0.5 x 0.2 cm. Submitted entirely, one cassette. CONTINUED ON NEXT PAGE * ML=Testing performed at Main Lab DEPARTMENT OF PATHOLOGY, [facility] [employer] [place] [place] [address] Noble Izquierdo M.D. Director [facility] Permit #[id number] RUN DATE: 02/13/13 [facility] LAB LIVE PAGE 3 RUN TIME: [address] [place] [address] Specimen Inquiry Patient: DAVALOSROSEMARY S [id number] (Continued) GROSS DESCRIPTION (Continued) Signed (signature on file) Florecita Snyder MD 1606 END OF REPORT * ML=Testing performed at Main Lab DEPARTMENT OF PATHOLOGY, [address] [place] [address] Noble Izquierdo M.D. Director [facility] Permit #[id number] 22 HDL Interpretation: Undesirable: High Risk: Less than 40 MG/DL Desirable: Low Risk: Greater than 60 MG/DL 23 LDL Interpretation: Low Risk Optimal Level: LDL Less than 100 MG/DL Near or Above Optimal: LDL 100-129 MG/DL Borderline High Risk: LDL 130-159 MG/DL High Risk: LDL 160-189 MG/DL Very High Risk: LDL Greater than 189 MG/DL 24 A metabolite of Naproxen, O-desmethylnaproxen, has been shown to interfere with the [place] method for measuring total bilirubin. Samples from patients who have taken Naproxen have shown spurious elevation in total bilirubin levels. 25 Because ethnic data is not always readily available, this report includes an eGFR for both -Americans and non- Americans. The National Kidney Disease Education Program (NKDEP) does not endorse the use of the MDRD equation for patients that are not between the ages of 18 and 70, are , have extremes of body size, muscle mass, or nutritional status, or are non- or non-. According to the National Kidney Foundation, irrespective of diagnosis, the stage of the disease is based on the level of kidney function: Stage Description GFR(mL/min/1.73 m(2)) 1 Kidney damage with normal or decreased GFR 90 2 Kidney damage with mild decrease in GFR 60-89 3 Moderate decrease in GFR 30-59 4 Severe decrease in GFR 15-29 5 Kidney failure <15 (or dialysis) 26 HDL Interpretation: Undesirable: High Risk: Less than 40 MG/DL Desirable: Low Risk: Greater than 60 MG/DL 27 LDL Interpretation: Low Risk Optimal Level: LDL Less than 100 MG/DL Near or Above Optimal: LDL 100-129 MG/DL Borderline High Risk: LDL 130-159 MG/DL High Risk: LDL 160-189 MG/DL Very High Risk: LDL Greater than 189 MG/DL 28 Fasting 29 Test Performed by: [facility] Dpt of Lab Med and Pathology [address] [place] [address] Program Dir: Doroteo Frias III, M.D. 30 -- REFERENCE VALUE -- 25-HYDROXY D TOTAL (D2+D3) Optimum levels in the normal population are 25-80 Test Performed by: [facility] Dpt of Lab Med and Pathology [address] [place] [address] Program Dir: Doroteo Frias III, M.D. 31 Recommended INR for Patients on Oral Anticoagulants Prophylaxis 2.0 - 3.0 Treatment of thrombosis 2.0 - 3.0 Prevention of embolism 2.0 - 3.0 Prevention of embolism from prosthetic heart valves 2.5 - 3.5 32 DIAGNOSIS,TREATMENT,AND THERAPY MUST BE BASED ON THE INR VALUE ALONE. 33 Recommended INR for Patients on Oral Anticoagulants Prophylaxis 2.0 - 3.0 Treatment of thrombosis 2.0 - 3.0 Prevention of embolism 2.0 - 3.0 Prevention of embolism from prosthetic heart valves 2.5 - 3.5 34 DIAGNOSIS,TREATMENT,AND THERAPY MUST BE BASED ON THE INR VALUE ALONE. 35 Recommended INR for Patients on Oral Anticoagulants Prophylaxis 2.0 - 3.0 Treatment of thrombosis 2.0 - 3.0 Prevention of embolism 2.0 - 3.0 Prevention of embolism from prosthetic heart valves 2.5 - 3.5 36 DIAGNOSIS,TREATMENT,AND THERAPY MUST BE BASED ON THE INR VALUE ALONE. 37 RUN DATE: 03/21/11 [facility] NMI LIVE PAGE 1 RUN TIME: 1232 Specimen Inquiry RUN USER: INTERFACE Name: ROSEMARY DAVALOS Status: REG REF Re03/16/11 Age/Sex: 60/M Unit#: [id number] Location: [facility] : [birth year] SPEC #: [id number] GUILHERME: 03/16/11 STATUS: COMP REQ #: [id number] RECD: 03/17/11-[address]: Elizabeth Zamarripa SOURCE: URINE ENTR: 03/17/11-[address]: MARK: ORDERED: GC/CHL APTIMA QUERIES: MEDENT REQUISITION # [id number] ACT WKST: GCCHL 03/21/11 #1 Procedure Result Verified Site > CHLAMYDIA TRACHOMATIS RNA Final 03/21/11- 1232 ML NEGATIVE FOR CHLAMYDIA TRACHOMATIS rRNA A negative result does not preclude the presence of a C.trachomatis or N.gonorrhoeae infection because results are dependent on adequate specimen collection, absence of inhibitors, and sufficient rRNA to be detected. Test results may be affected by improper specimen collection, improper specimen storage, technical error, or specimen mixup. Limitations of the Procedure: The Aptima Combo 2 Assay is not intended for the evaluation of suspected sexual abuse or for other medico-legal indications. For those patients for whom a false positive result may have adverse psychosocial impact, the CDC recommends retesting by a method using an alternate technology. Therapeutic failure or success cannot be determined with the Aptima Combo 2 Assay since nucleic acid may persist following appropriate antimicrobial therapy. Results from the APTIMA Combo 2 Assay should be interpreted in conjunction with other laboraotry and clinical data available to the clinician. Performance characteristics for detecting C. trachomatis and N. gonorrhoeae are derived from high prevalence populations. Positive results in low prevalence populations should be interpreted carefully with the understanding that the likelihood of a false positive may be higher than a true positive. DEPARTMENT OF PATHOLOGY, [address] [place] [address] [facility] Permit #[id number] Noble Izquierdo M.D. Director Maycol Woodard M.D. [employer] RUN DATE: 03/21/11 [facility] NMI LIVE PAGE 2 RUN TIME: 1232 Specimen Inquiry RUN USER: INTERFACE Name: ROSEMARY DAVALOS Accromeo#: [id number] Status: REG REF Re03/16/11 Age/Sex: 60/M Unit#: [id number] Location: [facility] : [birth year] -- -- CONTINU ED Procedure Result Verified Site > GC (N. GONORRHOEAE) RNA Final 03/21/11- 1232 ML NEGATIVE FOR NEISSERIA GONORRHOEAE rRNA A negative result does not preclude the presence of a C.trachomatis or N.gonorrhoeae infection because results are dependent on adequate specimen collection, absence of inhibitors, and sufficient rRNA to be detected. Test results may be affected by improper specimen collection, improper specimen storage, technical error, or specimen mixup. Limitations of the Procedure: The Aptima Combo 2 Assay is not intended for the evaluation of suspected sexual abuse or for other medico-legal indications. For those patients for whom a false positive result may have adverse psychosocial impact, the CDC recommends retesting by a method using an alternate technology. Therapeutic failure or success cannot be determined with the Aptima Combo 2 Assay since nucleic acid may persist following appropriate antimicrobial therapy. Results from the APTIMA Combo 2 Assay should be interpreted in conjunction with other laboraotry and clinical data available to the clinician. Performance characteristics for detecting C. trachomatis and N. gonorrhoeae are derived from high prevalence populations. Positive results in low prevalence populations should be interpreted carefully with the understanding that the likelihood of a false positive may be higher than a true positive. [facility] Permit #[id number] [address] [place] [address] DEPARTMENT OF PATHOLOGY, [address] [place] [address] [facility] Permit #[id number] Noble Izquierdo M.D. Director Maycol Woodard M.D. Life Skills Educator 38 Test Performed by: [facility] Dpt of Lab Med and Pathology [address] [place] [address] Program Dir: Doroteo Frias III, M.D. 39 Test Performed by: [facility] Dpt of Lab Med and Pathology [address] [place] [address] Program Dir: Doroteo Frias III, M.D. 40 CHOLESTEROL INTERPRETATION: Desirable: Less than 200 MG/DL Borderline-High Risk: 200-239 MG/DL High-Risk: 240 MG/DL and over 41 HDL INTERPRETATION: Undesirable: High Risk: Less than 40 MG/DL Desirable: Low Risk: Greater than 60 MG/DL 42 LDL INTERPRETATION: Low Risk Optimal Level: LDL Less than 100 MG/DL Near or Above Optimal: LDL 100-129 MG/DL Borderline High Risk: LDL 130-159 MG/DL High Risk: LDL 160-189 MG/DL Very High Risk: LDL Greater than 189 MG/DL 43 Recommended INR for Patients on Oral Anticoagulants Prophylaxis 2.0 - 3.0 Treatment of thrombosis 2.0 - 3.0 Prevention of embolism 2.0 - 3.0 Prevention of embolism from prosthetic heart valves 2.5 - 3.5 44 DIAGNOSIS,TREATMENT,AND THERAPY MUST BE BASED ON THE INR VALUE ALONE. 45 Recommended INR for Patients on Oral Anticoagulants Prophylaxis 2.0 - 3.0 Treatment of thrombosis 2.0 - 3.0 Prevention of embolism 2.0 - 3.0 Prevention of embolism from prosthetic heart valves 2.5 - 3.5 46 DIAGNOSIS,TREATMENT,AND THERAPY MUST BE BASED ON THE INR VALUE ALONE. 47 Recommended INR for Patients on Oral Anticoagulants Prophylaxis 2.0 - 3.0 Treatment of thrombosis 2.0 - 3.0 Prevention of embolism 2.0 - 3.0 Prevention of embolism from prosthetic heart valves 2.5 - 3.5 48 DIAGNOSIS,TREATMENT,AND THERAPY MUST BE BASED ON THE INR VALUE ALONE. 49 Recommended INR for Patients on Oral Anticoagulants Prophylaxis 2.0 - 3.0 Treatment of thrombosis 2.0 - 3.0 Prevention of embolism 2.0 - 3.0 Prevention of embolism from prosthetic heart valves 2.5 - 3.5 50 ATTENTION EFFECTIVE 09/10/08, THE IMPLEMENTATION OF NEW COAGULATION ANLAYZERS HAS CAUSED A SIGNIFICANT DIFFERENCE FOR PROTIME RESULTS IN SECONDS. THEREFORE, DIAGNOSIS,TREATMENT,AND THERAPY MUST BE BASED ON THE INR VALUE ONLY. 51 Recommended INR for Patients on Oral Anticoagulants Prophylaxis 2.0 - 3.0 Treatment of thrombosis 2.0 - 3.0 Prevention of embolism 2.0 - 3.0 Prevention of embolism from prosthetic heart valves 2.5 - 3.5 52 DIAGNOSIS,TREATMENT,AND THERAPY MUST BE BASED ON THE INR VALUE ALONE. 53 Recommended INR for Patients on Oral Anticoagulants Prophylaxis 2.0 - 3.0 Treatment of thrombosis 2.0 - 3.0 Prevention of embolism 2.0 - 3.0 Prevention of embolism from prosthetic heart valves 2.5 - 3.5 54 DIAGNOSIS,TREATMENT,AND THERAPY MUST BE BASED ON THE INR VALUE ALONE. 55 A metabolite of Naproxen, O-desmethylnaproxen, has been shown to interfere with the [place] method for measuring total bilirubin. Samples from patients who have taken Naproxen have shown spurious elevation in total bilirubin levels. 56 Please note updated reference range, effective 11/19/09 57 RESULTS CONFIRMED BY REPEAT ANALYSIS. REPEATED RESULT WAS 32 58 RESULTS CONFIRMED BY REPEAT ANALYSIS. REPEATED RESULT WAS 23 59 * SERUM LEVELS OF PSA MEASURED USING THE DEONTICS ACCESS HYBRITECH IMMUNOASSAY SHOULD NOT BE INTERPRETED ABSOLUTE EVIDENCE OF THE PRESENCE OR ABSENCE OF DISEASE. THE PSA VALUE SHOULD BE USED IN CONJUNCTION WITH OTHER PERTINENT CLINICAL DIAGNOSTIC PROCEDURES. 60 Recommended INR for Patients on Oral Anticoagulants Prophylaxis 2.0 - 3.0 Treatment of thrombosis 2.0 - 3.0 Prevention of embolism 2.0 - 3.0 Prevention of embolism from prosthetic heart valves 2.5 - 3.5 61 DIAGNOSIS,TREATMENT,AND THERAPY MUST BE BASED ON THE INR VALUE ALONE. 62 Anion gap measurement may be of limited value in the presence of any alkalosis, especially in a combined acid base disorder. . 63 A metabolite of Naproxen, O-desmethylnaproxen, has been shown to interfere with the Jendrassik-Teresa method for measuring total bilirubin. Samples from patients who have taken Naproxen have shown spurious elevation in total bilirubin levels. 64 Because ethnic data is not always readily available, this report includes an eGFR for both -Americans and non- Americans. The National Kidney Disease Education Program (NKDEP) does not endorse the use of the MDRD equation for patients that are not between the ages of 18 and 70, are , have extremes of body size, muscle mass, or nutritional status, or are non- or non-. According to the National Kidney Foundation, irrespective of diagnosis, the stage of the disease is based on the level of kidney function: Stage Description GFR(mL/min/1.73 m(2)) 1 Kidney damage with normal or decreased GFR 90 2 Kidney damage with mild decrease in GFR 60-89 3 Moderate decrease in GFR 30-59 4 Severe decrease in GFR 15-29 5 Kidney failure <15 (or dialysis) 65 Recommended INR for Patients on Oral Anticoagulants Prophylaxis 2.0 - 3.0 Treatment of thrombosis 2.0 - 3.0 Prevention of embolism 2.0 - 3.0 Prevention of embolism from prosthetic heart valves 2.5 - 3.5 66 DIAGNOSIS,TREATMENT,AND THERAPY MUST BE BASED ON THE INR VALUE ALONE. 67 FINAL INTERPRETATION: No HIV antibody is detected. . This information has been disclosed to you from confidential records which are protected by [facility] law. State law prohibits you from making further disclosure of this information without the specific written consent of the person to whom it pertains, or as otherwise permitted by law. Any unauthorized further disclosure in violation of state law may result in a fine or long term sentence or both. General authorization for the release of medical or other information is not, except in limited circumstances set forth in Part 63, Title 10, of [facility], sufficient authorization for further disclosure. Disclosure of confidential HIV information that occurs as the result of a general authorization for the release of medical or other information will be in violation of the state law and may result in a fine or a long term sentence. . 68 Recommended INR for Patients on Oral Anticoagulants Prophylaxis 2.0 - 3.0 Treatment of thrombosis 2.0 - 3.0 Prevention of embolism 2.0 - 3.0 Prevention of embolism from prosthetic heart valves 2.5 - 3.5 69 DIAGNOSIS,TREATMENT,AND THERAPY MUST BE BASED ON THE INR VALUE ALONE. 70 Test Performed by: [facility] Dpt of Lab Med and Pathology [address] [place], [place] [id number] Program Dir: Doroteo Frias III, M.D. 71 Test Performed by: [facility] of [facility] Med [facility] Pathology [address] [place] [id number] Program Dir: Doroteo Frias III, M.D. Procedures Date Code Description Status 06/22/201840416 Inject/Drain Joint/Bursa Major W/O US Completed 11/28/201771366 Inject/Drain Joint/Bursa Major W/O US Completed 01/17/201751064 Inject/Drain Joint/Bursa Major W/O US Completed 12/08/2016 96706 ECHO Transthorasic Realtime 2D W Doppler & Color Flow Completed Hosp 10/28/201629433 Inject/Drain Joint/Bursa Major W/O US Completed 07/25/201644076 Inject/Drain Joint/Bursa Major W/O US Completed 11/20/2013 17778 EEG Recording Awake & Drowsy Completed 04/17/2013 26252 Stress Test Completed 03/23/2013 06254 Holter Monitor Review (24 hr)dr richardson & nevillep only Completed 03/13/2013 40210 EKG Tracing & Interpretation Completed 02/11/2013 [id number] Colonoscopy Completed 04/05/2012 58699 EKG Tracing & Interpretation Completed 02/21/2012 46062 Destruction Of Benign Lesions Any Method 1-14 lesions Completed 02/10/2010 [id number] Colonoscopy Completed 01/25/2010 25790 EKG Tracing & Interpretation Completed 02/26/2009 46278 EKG Tracing & Interpretation Completed 11/16/2007 48121 EKG Tracing & Interpretation Completed 11/09/2006 08538 EKG Tracing & Interpretation Completed 11/08/2006 [id number] Colonoscopy Completed Encounters Type Date Location Provider Dx Diagnosis Office Visit 07/20/2018 Orthopedic Brittnee Narayanan, M25.562 Pain in left knee 3:15p [facility] M25.561 Pain in right knee M25.462 Effusion, left knee M25.461 Effusion, right knee M17.0 Bilateral primary osteoarthritis of knee Office Visit 04/16/2018 3:45p Orthopedic Services Brittnee Narayanan, M25.562 Pain in left Of C.M.A. M.D. knee M25.561 Pain in right knee M25.462 Effusion, left knee M25.461 Effusion, right knee M17.0 Bilateral primary osteoarthritis of knee M21.162 Varus deformity, not elsewhere classified, left knee M21.161 Varus deformity, not elsewhere classified, right knee Office Visit 12/11/2017 2:15p [facility]opedic Services Brittnee Narayanan, M25.562 Pain in left Of C.M.A. M.D. knee M25.561 Pain in right knee M25.462 Effusion, left knee M25.461 Effusion, right knee M17.0 Bilateral primary osteoarthritis of knee Office Visit 11/28/2017 Orthopedic Afsaneh Gutierrez, M19.012 Primary 1:00p Services Of osteoarthritis, left C.M.A. shoulder M19.011 Primary osteoarthritis, right shoulder Office Visit 11/24/2017 1:00p Orthopedic Services Brittnee Narayanan M25.561 Pain in right Of [facility] [place] knee M25.562 Pain in left knee M25.462 Effusion, left knee M25.461 Effusion, right knee M17.0 Bilateral primary osteoarthritis of knee M21.162 Varus deformity, not elsewhere classified, left knee M21.161 Varus deformity, not elsewhere classified, right knee Office Visit 10/28/2016 9:00a Orthopedic Afsaneh Gutierrez, M75.122 Complete Services Of rotatr-cuff C.M.A. 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, right shoulder S46.101A Unsp injury of musc/fasc/tend long hd bicep, right arm, init M19.011 Primary osteoarthritis, right shoulder M19.012 Primary osteoarthritis, left shoulder Office Visit 08/24/2016 3:30p Orthopedic [place] San, G56.21 Lesion of Services Of Petty Olson ulnar nerve, right upper limb S43.422D Sprain of left rotator cuff capsule, subsequent encounter Office Visit 07/25/2016 11:00a [facility] Services [place] San M54.2 Cervicalgia Of Jl.Sam Olson G56.21 Lesion of ulnar nerve, right upper limb S43.422A Sprain of left rotator cuff capsule, initial encounter Office Visit 10/29/2014 4:00p Orthopedic Brittnee 715.16 Osteoarthrosis Services Of [place] Narayanan Localized Prim Lower C.M.A. Leg 719.06 Effusion Joint Lower Leg 719.46 Pain Joint Lower Leg Office Visit 10/28/2014 11:45a Hiram Neurologic Khoi Hathaway 723.1 Cervicalgia Services Of [facility] Whitney 784.0 Headache Office Visit 06/24/2014 3:45p Hiram Danial Hathaway 723.1 Cervicalgia Services Of [facility] [place] Office Visit 03/18/2014 3:00p Hiram Danial Hathaway 723.1 Cervicalgia Services Of [facility] [place] 784.0 Headache Office Visit 09/09/2013 1:40p [facility] Mariajose Carlson, 719.49 Pain Joint Medicine M.DCale Multiple Sites 356.8 Neuropathy Other Spec Idiopathic Peripheral Office Visit 09/06/2013 10:20a [facility] Mariajose Carlson, 782.0 Skin Sensation Medicine M.DCale Disturbance 288.50 Leukocytopenia, Unspecified Office Visit 08/21/2013 4:00p [facility] Linda Perez, 784.0 Headache Medicine M.Jame, FACP Office Visit 08/15/2013 1:00p [facility] Linda Perez, 388.31 Tinnitus Medicine M.D., FACP Subjective 300.00 Anxiety State Unspec Office Visit 08/12/2013 2:30p [facility] Services [facility] 300.00 Anxiety State C.M.A. AT [facility] [place] Unspec Ryan 388.30 Tinnitus Unspecified Office Visit 08/12/2013 10:00a [facility] Elizabeth Emilia, 388.30 Tinnitus Medicine N.P. Unspecified 300.00 Anxiety State Unspec Office Visit 04/08/2013 9:40a [facility] Linda Perez, V70.0 Examination Medicine M.Jame, FACP General Medical Routine AT Health Care Facility 401.1 Hypertension Benign 272.0 Hypercholesterolemia Pure 556.9 Ulcerative Colitis Unspec 786.50 Pain Chest Unspec 300.00 Anxiety State Unspec Office Visit 03/13/2013 9:20a [facility] Linda Perez, 786.50 Pain Chest Medicine M.DCale, FACP Unspec 780.79 Malaise And Fatigue Other V04.81 Need For Prophylactic Vaccination & Inoculation/Influenza 272.0 Hypercholesterolemia Pure Office Visit 01/11/2013 3:20p [facility] Mariajose Carlson, 727.06 Tenosynovitis Foot Medicine M.D. & Ankle Office Visit 12/27/2012 4:20p [facility] Linda Perez, 719.49 Pain Joint Multiple Medicine M.D., FACP Sites 300.00 Anxiety State Unspec 556.9 Ulcerative Colitis Unspec Office Visit 08/29/2012 9:20a [facility] Linda Perez, 719.49 Pain Joint Medicine M.D., FACP Multiple Sites 311 Depressive Disorder Not Elsewhere Spec Office Visit 06/06/2012 [facility] Linda Perez, 272.0 Hypercholesterolemia Pure 2:40p Medicine M.D., FACP 719.49 Pain Joint Multiple Sites Office Visit 04/05/2012 2:40p [facility] Linda Ana, V70.0 Examination Medicine M.D., FACP General Medical Routine AT Health Care Facility 401.1 Hypertension Benign 556.9 Ulcerative Colitis Unspec 272.0 Hypercholesterolemia Pure 719.49 Pain Joint Multiple Sites V04.89 Need For Prophylactic Vaccination & Inoculation Other Virus Office Visit 02/21/2012 10:00a [facility] Lindaamanda Perez, 719.88 Joint Disorder Medicine M.D., FACP Other Spec Sites 078.12 Plantar Wart 401.1 Hypertension Benign V04.81 Need For Prophylactic Vaccination & Inoculation/Influenza Office Visit 05/11/2011 4:00p [facility] Linda Ana, 401.1 Hypertension Benign Medicine M.D., FACP 451.11 Phlebitis & Thrombophlebitis Femoral Vein (Deep)(Superficial 556.9 Ulcerative Colitis Unspec Office 03/16/2011 DO Not Use Elizabeth V74.5 Screening Examination Visit 2:20p Alondra Nieto, N.P. Venereal Disease Office 02/28/2011 DO Not Use Linda Ana, 451.11 Phlebitis & Visit 11:00a Alondra Olson, FACP Thrombophlebitis Femoral Vein (Deep)(Superficial 607.89 Penis Disorder Other 401.1 Hypertension Benign Office Visit 02/07/2011 10:40a DO Not Use Linda Ana, 794.8 Liver Study Alondra Olson, FACP Abnormal 451.11 Phlebitis & Thrombophlebitis Femoral Vein (Deep)(Superficial 401.1 Hypertension Benign Office 01/27/2011 DO Not Use Linda 451.11 Phlebitis & Visit 1:20p Alondra Perez M.D., Thrombophlebitis FACP Femoral Vein (Deep)(Superficial v04.81 Need For Prophylactic Vaccination & Inoculation/Influenza Office Visit 01/25/2011 4:00p DO Not Use Elizabeth Emilia, 782.3 Edema Alondra N.P. Office Visit 12/29/2010 2:40p DO Not Use Lindaamanda Perez, 726.19 Shoulder Alondra Olson, FACP Disorders Other Spec 311 Depressive Disorder Not Elsewhere Spec 729.1 Myalgia & Myositis Unspec 401.1 Hypertension Benign Office Visit 02/25/2010 11:15a DO Not Use Linda Ana, 556.9 Ulcerative Alondra Olson, FACP Colitis Unspec 787.02 Nausea Alone V04.81 Need For Prophylactic Vaccination & Inoculation/Influenza Office Visit 01/25/2010 10:30a DO Not Use Linda Ana, 607.89 Penis Disorder Alondra Olson, FACP Other 786.50 Pain Chest Unspec 719.45 Pain Joint Pelvic Region & Thigh 783.21 Loss Of Weight Office Visit 02/26/2009 3:15p DO Not Use Linda Ana, V70.0 Examination Alondra Olson, FACP General Medical Routine AT Health Care Facility 556.9 Ulcerative Colitis Unspec 401.1 Hypertension Benign 309.0 Adjustment Disorder With Depression Office Visit 12/18/2007 2:15p DO Not Use Linda Ana, 796.2 Blood Pressure Alondra Olson, FACP Reading Elevated W/O Hypertension 272.0 Hypercholesterolemia Pure 309.0 Adjustment Disorder With Depression Office Visit 11/16/2007 2:15p DO Not Use Linda Ana, V70.0 Examination Alondra Olson, FACP General Medical Routine AT Health Care Facility 556.9 Ulcerative Colitis Unspec 785.1 Palpitations 401.1 Hypertension Benign 780.79 Malaise And Fatigue Other Office Visit 02/05/2007 12:00p DO Not Use Linda Ana, 465.9 URI Upper Alondra Olson, FACP Respiratory Infections Acute Unspec Sites 311 Depressive Disorder Not Elsewhere Spec Office Visit 11/09/2006 11:15a DO Not Use Linda Ana, 556.9 Ulcerative Alondra Olson, FACP Colitis Unspec 780.79 Malaise And Fatigue Other 401.1 Hypertension Benign V70.0 Examination General Medical Routine AT Health Care Facility Office 07/20/2006 DO Not Use Linda 272.0 Hypercholesterolemia Visit 10:00a Alondra Perez M.D., Pure FACP Office 01/20/2006 DO Not Use Linda 272.0 Hypercholesterolemia Visit 11:30a Alondra Perez M.D., Pure FACP Plan of Treatment Future Appointment(s):09/07/2018 3:15 pm - Brittnee Narayanan M.D. at [facility].08/27/2018 10:30 am - LANCE Lee at [facility].08/27/2018 10:30 am - Brittnee Narayanan M.D. at [facility].08/17/2018 - Brittnee Narayanan M.D.M25.562 Pain in left kneeNew Xrays:Knee 3 Views Bilateral, Ordered: 08/17/18Follow up:Follow up: 2 weeks after jergbpeI05.561 Pain in right kneeNew Xrays:Knee 3 Views Bilateral, Ordered : 08/17/18M25.462 Effusion, left kneeM25.461 Effusion, right kneeM17.0 Bilateral primary osteoarthritis of knee
--- OUTSIDE RECORDS SUMMARY | 2018-08-27 08:18 | XMS REPORT | Continuity of Care Document ---
:1950 External Reference #:[id number] Author Name Katie Motta Care Team Providers Name Role Phone Malika Espinosa MD Primary Care Physician Unavailable Payers Date Identification Numbers Payment Provider Subscriber Policy Number: [id number] Medicare Rosemary Davalos PayID: [id number] [address] [place] [address] Expires: 2018 Policy Number: [id number] Medicare Rosemary Davalos PayID: [id number] [address] [place] [address] Effective: 2012 Policy Number: [id number] [employer] Rosemary Davalos PayID: [id number] [place] [address] Expires: 2012 Policy Number: [id number] [facility] Rosemary Davalos PayID: [id number] [place] [address] Advance Directives Description No Information Available Problems [...] Status Lives With Alone 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 M.D., [facility] 08/01/2011 Dispers Doxycycline Hyclate take two at one time 2caps Linda Perez, 02/09/2011 - M.D., FACP 02/28/2011 100mg Capsules Coumadin Take as Directed 60tabs Linda Perez, 01/31/2011 - 5mg Tablets [facility].D., [facility] 02/21/2012 Coumadin two daily as directed 60units Linda Perez, 01/26/2011 - 5mg Solution M.D., FACP 01/31/2011 Rec Lovenox 1 subcutaneously q12h 8units Linda Perez, 01/26/2011 - 100mg/ml as directed [facility]D., [facility] 01/31/2011 Solution Percocet 1-2 po q4h prn [...] Linda Perez, 01/07/2010 - 10mg Tablets Before [place] as M.D., FACP 02/25/2010 Needed Physical Therapy [...] CPT Code Status Date Vaccine Lot # [id number] Given 03/13/2013 Flu Vaccine Split Virus Preservative Free For [id number] Indiv 3Yr Older 69513 Given 04/05/2012 Zoster (Zostavax) [id number] Given 02/21/2012 Fluvirin Im 3Yrs And Older [id number] 61727 Given 01/27/2011 Influenza Virus 3Yrs & Over [id number] 67377 Given 02/25/2010 Influenza Virus 3Yrs & Over [...] Result H/L Range Note CBC Auto Diff 12/05/2017 [facility] White Blood 6.9 10^3/uL N 3.5-10.[address] [place] [address] [phone] Red Blood Count 4.61 10^6/uL N 4.00-5.40 [...] Blood Cells % 0.1 Laboratory test 12/05/2017 [facility] Anti Thrombin 94 % 80 - [address] [place] [address] [phone] Protein S Antigen 86 % 65 - 160 2 Protein C Activity 109 % 70 - 150 3 Factor V Activity 51 % Abnormal 70 - 165 4 Protein S Activity 77 % 65 - 160 5 Protein C Ag 96 % 70-150 6 Cardiolipin 12/05/2017 [facility] Phospholipid Ab < 9.4 MPL 7 Igg/Igm [address] IgM, [place] [address] [phone] Phospholipid Ab IgG < 9.4 GPL 8 Laboratory test 12/05/2017 [facility] Cardiolipin Iga < 9.4 [address] [place] [address] [phone] Laboratory test 09/06/2013 [facility] Vitamin B12 527 N 180-9 [address] pg/mL 14 [place] [address] [phone] Protein 09/06/2013 [facility] Total 7.1 g/dL N 6.3 - Electrophoresis [address] Protein(Pep) 7.9 [place], [place] [phone] Albumin 3.9 g/dL N 3.4-4.7 Alpha-1 Globulin 0.2 g/dL N 0.1-0.3 Alpha-2 Globulin 0.9 g/dL N 0.6-1.0 Beta Globulin 0.9 g/dL N 0.7-1.2 Gamma Globulin 1.2 g/dL N 0.6-1.6 Albumin/Globulin Ratio 1.24 N Impression See Comment N 11 CBC With 09/06/2013 [facility] White Blood 4.7 10^3/uL Low 4.8 -10.8 Manual Diff [address] [place] [address] [phone] Red Blood Count 4.60 10^6/uL N 4.0-5.4 [...] N 0-6 RBC Morphology Normal N Normal Vitamin D, 25 09/06/2013 [facility] 25-Hydroxy Vitamin <4.0 ng/ mL N Hydroxy [address] D2 [place] [address] [phone] 25-Hydroxy Vitamin D3 40 ng/mL N 25-Hydroxy Vitamin D Total 40 ng/mL N 12 Laboratory 03/13/2013 [facility] TSH (Thyroid 1.83 0.34-5.60 13 test finding [address] Stimulating miu/[place] [address] Horm) [phone] CBC Auto Diff 03/13/2013 [facility] White Blood 4.7 Low 4.8- 10.[address] Count 10^3/[place] [address] [phone] Red Blood Count 4.50 10^6/uL 4.0-5.4 Hemoglobin [...] Blood Cells % 0 Laboratory test 03/13/2013 [facility] Lyme Disease Negative Negative [address] Serology [place] [id number] [phone] Comp Metabolic 03/13/2013 [facility] Sodium 139 mmol/L 133- [address] [place] [address] [phone] Potassium 4.4 mmol/L 3.5-5.0 Chloride 105 mmol/L [...] Egfr Non- 85.2 >60 Egfr 109.6 >60 15 Lipid Profile 03/13/2013 [facility] Triglycerides 84 mg/dL 40 -200 (Trig/Chol/HDL) [address] [place] [address] [phone] Cholesterol 191 mg/dL Less than 200 HDL Cholesterol 73 mg/dL High 40-60 16 Cholesterol/HDL Ratio 2.6 Average 1-4.44 LDL Cholesterol 101.2 High Less Than 100 17 Surgical 02/11/2013 [facility] S RUN DATE: [address] 02/13/ <[place] [address] NOTE> [phone] Lipid Profile 06/04/2012 [facility] Triglycerides 78 mg/dL 40 -200 (Trig/Chol/HDL) [address] [place] [address] [phone] Cholesterol 189 mg/dL Less than 200 HDL Cholesterol 81 mg/dL High 40-60 19 Cholesterol/HDL Ratio 2.3 Average 1-4.44 LDL Cholesterol 92.4 mg/dL Less Than 100 20 Liver Function 06/04/2012 [facility] Total Protein 5.8 g/dL Low 6.2-8.[address] [place] [address] [phone] Albumin 4.0 g/dL 3.2-5.2 Globulin 1.8 g/dL Low 2-4 Albumin/Globulin Ratio 2.2 1-3 Total Bilirubin 0.7 mg/dL 0.4-1.5 Direct Bilirubin 0.1 mg/dL 0.1-0.5 Indirect Bilirubin 0.6 mg/dL 0.3-1.0 Alkaline Phosphatase 58 U/L 30-110 Alt 18 U/L 14-54 Ast 21 U/L 12-42 Ua Routine 04/05/2012 [facility] House Ua Specific [place] 1.010 Ua PH 6 Ua Color yellow Ua Appera clear Ua WBC neg Ua Protein trace Ua Glucose neg Ua Ketones neg Ua Bilirubin neg Ua Urobilinogen neg Ua Nitrite neg Ua Occult Blood neg Comp Metabolic Panel 03/27/2012 [facility] Sodium 140 mmol/L 133-145 [address] [place] [address] [phone] Potassium 4.2 mmol/L 3.5-5.0 Chloride 107 mmol/L [...] 1.7 1-3 Total Bilirubin 0.7 mg/dL 0.1-1.0 21 Alkaline Phosphatase 57 U/L 30-110 Alt 17 U/L 14-54 Ast 20 U/L 12-42 Egfr Non- 85.5 >60 Egfr 110.0 >60 22 Lipid Profile 03/27/2012 [facility] Triglycerides 108 mg/dL 40-200 (Trig/Chol/HDL) [address] [place] [address] [phone] Cholesterol 255 mg/dL High Less than 200 HDL Cholesterol 71 mg/dL High 40-60 23 Cholesterol/HDL Ratio 3.6 AVERAGE 1-4.44 LDL Cholesterol 162.4 mg/dL High Less Than 100 24 Laboratory test 03/27/2012 [facility] Vitamin B12 422 pg/mL 180-914 [address] [place] [address] [phone] CBC With Manual 03/27/2012 [facility] White Blood 4.7 Low 4.8- 10.[address] Count 10^3/[place] [address] [phone] Red Blood Count 4.44 10^6/uL 4.0-5.4 Hemoglobin [...] Morphology Normal Normal Vitamin D 1,25 05/27/2011 [facility] Vitamin D, 1,25 41 pg/mL 18-64 26 And Vitamin D,[address] [place] [address] [phone] Vitamin D, 25 05/27/2011 [facility] 25-Hydroxy <4.0 ng/mL () Hydroxy [address] Vitamin D2 [place] [address] [phone] 25-Hydroxy Vitamin D3 36 ng/mL () 25-Hydroxy Vitamin D Total 36 ng/mL () 27 Protime 05/27/2011 [facility] Inr 1.62 High 0.88-1.[address] [place], [place] [address] [phone] Protime 19.5 SEC High 10.3-13.5 29 International Normalized 04/29/2011 [facility] Inr 2.08 High 0.88-1.[address] [place], [place] [address] [phone] Protime 25.3 SEC High 10.3-13.5 31 Protime 03/31/2011 [facility] Inr 2.10 High 0.88-1.[address] [place], [place] [address] [phone] Protime 26.4 SEC High 10.3-13.5 33 GC/Chlamydia 03/16/2011 [facility] M [address] <SEE NOTE> [place], [place] [phone] Syphilis 03/16/2011 [facility] Syphilis TNP Nonreactive Screen [address] [place] [address] [phone] RPR NON-REACTIVE Nonreactive RPR Titer TNP Pediatric/Maternal NO Herpes Simplex 03/16/2011 [facility] Herpes Simplex Negative Negative Type 1&[address] Type 1 [place] [address] [phone] Herpex Simplex Type 2 Igg POSITIVE Negative 35 Laboratory test 03/16/2011 [facility] Herpes Simplex Negative Negative [address] Type 1 2 [place] [address] [phone] Lipid Profile 03/03/2011 [facility] Triglyceride 105 mg/dL 40 -200 (Trig/Chol/HDL) [address] [place] [address] [phone] Cholesterol 212 mg/dL High Less Than 200 37 High Density Lipoprotein 66 mg/dL High 40-60 38 Cholesterol/HDL Ratio 3.21 AVERAGE 1-4.97 Low Density Lipoprotein 125 mg/dL High Less Than 100 39 International Normalized 03/03/2011 [facility] Inr 2.36 High 0.88-1.13 [address] [place], [place] [address] [phone] Protime 28.8 SEC High 10.3-13.5 41 International Normalized 02/24/2011 [facility] Inr 2.55 High 0.88-1.13 42 Ratio 101 [place] [address] [phone] Protime 31.3 SEC High 10.3-13.5 43 International Normalized 02/21/2011 [facility] Inr 2.83 High 0.82-1.17 44 Ratio 101 [place] [address] [phone] Protime 35.3 SEC High 10.2-14.8 45 International Normalized 02/17/2011 [facility] Inr 1.71 High 0.86-1.13 46 Ratio 101 [place] [address] [phone] Protime 21.4 SEC High 10.88-13.62 47 International Normalized 02/14/2011 [facility] Inr 1.47 High 0.82-1.17 48 Ratio 101 [place] [address] [phone] Protime 17.7 SEC High 10.2-14.8 49 International Normalized 02/11/2011 [facility] Inr 1.45 High 0.82-1.17 50 Ratio 101 [place] [address] [phone] Protime 17.5 SEC High 10.2-14.8 51 Liver Function 02/10/2011 [facility] Total Protein 6.3 GM/DL 6.2-8.1 Panel 101 [place] [address] [phone] Albumin 3.8 GM/DL 3.2-5.2 Globulin 2.5 GM/DL 2-4 Albumin/Globulin Ratio 1.5 1-3 Bilirubin Total 0.8 mg/dL 0.4-1.5 52 Bilirubin Direct 0.1 mg/dL 0.1-0.5 Indirect Bilirubin 0.7 mg/dL 0.3-1.0 53 Alkaline Phosphatase 56 U/L 39-117 Alt (SGPT) 33 U/L 17-63 54 Ast (Sgot) 24 U/L 12-42 55 Laboratory test 02/10/2011 [facility] PSA Screening 0.98 NG/ML 0-4 56 finding [address] [place] [address] [phone] Protime 02/03/2011 [facility] Inr 2.01 High 0.82-1.[address] 7 [place] [address] [phone] Protime 24.6 SEC High 10.2-14.8 58 Comp Metabolic Panel 02/03/2011 [facility] Sodium 138 mmol/L 135-[address] [place] [address] [phone] Potassium 4.0 mmol/L 3.5-5.0 Chloride 105 mmol/L 101-111 Co2 (Carbon Dioxide) 24.0 mmol/L 22-32 Anion Gap 9.0 mmol/L 2-11 59 Glucose 98 mg/dL 70-100 BUN 12 mg/dL 6-24 Creatinine 0.9 mg/dL 0.50-1.40 One Over Creatinine 1.11 BUN/Creatinine Ratio 13.3 8-20 Calcium 8.5 mg/dL 8.1-9.9 Total Protein 5.7 GM/DL Low 6.2-8.1 Albumin 3.8 GM/DL 3.2-5.2 Globulin 1.9 GM/DL Low 2-4 Albumin/Globulin Ratio 2.0 1-3 Bilirubin Total 0.5 mg/dL 0.4-1.5 60 Alkaline Phosphatase 51 U/L 39-117 Alt (SGPT) 128 U/L High 17-63 Ast (Sgot) 58 U/L High 12-42 eGFR Non- 85.8 > 60 eGFR 110.3 > 60 61 CBC Auto Diff 02/03/2011 [facility] White Blood 5.2 CUMM 4.8- 10.[address] [place] [address] [phone] Red Cell Count 4.14 CUMM Low 4.6-6.2 [...] Abs Basophils 0 0-0.2 International Normalized 01/31/2011 [facility] Inr 2.50 High 0.82-1.[address] [place], [place] [address] [phone] Protime 31.0 SEC High 10.2-14.8 63 Laboratory test 01/28/2011 [facility] Vad NONREACTIVE Nonreactive [address] [place] [address] [phone] Protime 01/28/2011 [facility] Inr 1.40 High 0.82-1.[address] [place] [address] [phone] Protime 16.8 SEC High 10.2-14.8 66 Laboratory test 01/28/2011 [facility] Anti Thrombin 96 % 80- 130 67 finding [address] [facility] [place] [address] [phone] Anti Thrombin III Activity 95 % 80-130 68 1 Direct factor Xa inhibitor therapy (rivaroxaban (Xarelto), apixaban (Eliquis), edoxaban (Savaysa)) may interfere with the functional Xa based AT assay and cause an overestimation of AT activity thus potentially masking diagnosis of AT deficiency. Suggest clinical correlation and consider repeat AT testing remote from direct factor Xa inhibitor therapy, if clinically indicated. ADDITIONAL INFORMATION This test has been modified from the demolition hammer operator's instructions. Its performance characteristics were determined by [facility] in a manner consistent with CLIA requirements. This test has not been cleared or approved by the U.S. Food and Drug Administration. Test Performed by: [facility] - [address] [address] 2 ADDITIONAL INFORMATION This test has been modified from the demolition hammer operator's instructions. Its performance characteristics were determined by [facility] in a manner consistent with CLIA requirements. This test has not been cleared or approved by the U.S. Food and Drug Administration. Test Performed by: [facility] - [address] [address] 3 ADDITIONAL INFORMATION This test has been modified from the demolition hammer operator's instructions. Its performance characteristics were determined by [facility] in a manner consistent with CLIA requirements. This test has not been cleared or approved by the U.S. Food and Drug Administration. Test Performed by: [facility] - [address] [address] 4 ADDITIONAL INFORMATION This test has been modified from the demolition hammer operator's instructions. Its performance characteristics were determined by [facility] in a manner consistent with CLIA requirements. This test has not been cleared or approved by the U.S. Food and Drug Administration. Test Performed by: [facility] - [address] [address] 5 Anticoagulants (for example oral direct thrombin inhibitors [...] This test has been modified from the demolition hammer operator's instructions. Its performance characteristics were determined by [facility] in a manner consistent with CLIA requirements. This test has not been cleared or approved by the U.S. Food and Drug Administration. Test Performed by: [facility] - [address] [address] Test Performed by: [facility] [place] [address] 7 REFERENCE VALUE <15.0 (Negative) 8 REFERENCE VALUE <15.0 (Negative) Test Performed by: [facility] - [address] [address] 9 REFERENCE VALUE <15.0 (Negative) Test Performed by: [address] [address] 10 Normal Range 180 to 914 Indeterminate Range 145 to 180 Deficient Range <145 11 RESULT: No apparent monoclonal protein on serum electrophoresis. Test Performed by: [place] [address] Digital Cartographer: Doroteo Frias III, M.D. 12 -- REFERENCE VALUE -- 25-HYDROXY D TOTAL (D2+D3) Optimum levels in the healthy population are 20-50, patients with bone disease may benefit from higher levels within this range. Test Performed by: [address] [address] Digital Cartographer: Doroteo Frias III, M.D. 13 FASTING 14 Serologic response to B. burgdorferi infection is not detected, but cannot rule out early infection during which low or undetectable antibody levels to B. burgdorferi may be present. If clinically indicated, a new serum specimen should be submitted in 7-14 days. Test Performed by: [place] [address] Digital Cartographer: Doroteo Frias III, M.D. 15 Because ethnic data is not always readily [...] 15-29 5 Kidney failure <15 (or dialysis) 16 HDL Interpretation: Undesirable: High Risk: Less than 40 mg/dL Desirable: Low Risk: Greater than 60 mg/dL 17 LDL Interpretation: Low Risk Optimal Level: LDL Less than 100 mg/dL Near or Above Optimal: LDL 100-129 mg/dL Borderline High Risk: LDL 130-159 mg/dL High Risk: LDL 160-189 mg/dL Very High Risk: LDL Greater than 189 mg/dL 18 RUN DATE: 02/13/13 [facility] LAB LIVE PAGE 1 RUN TIME: [address] [place] [address] Specimen Inquiry Name: ROSEMARY DAVALOS : [address]: Matias Hemphill MD Acct: [id number] Unit: [id number] AGE: 62 Location: ENDO Re02/11/13 SEX: M Status: REG REF SPEC: [id number] GUILHERME: 02/11/13- DR: Matias Hemphill MD REQ: [id number] RECD: 02/11/13 STATUS: BASSAM MALDONADO DR: Linda [...] performed at Main Lab DEPARTMENT OF PATHOLOGY, [facility] [employer] [place] [address] Noble Izquierdo M.D. Director [facility] Permit #[id number] RUN DATE: 02/13/13 [facility] LAB LIVE PAGE 2 RUN TIME: 9260 [facility] [employer] [place], [place] [address] Specimen Inquiry Patient: ROSEMARY DAVALOS [id number] (Continued) SPECIMEN COMMENTS (Continued) CLINICAL HISTORY Screening colonoscopy with ulcerative colitis POST-OPERATIVE DIAGNOSIS Screening colonoscopy into cecum, prep good - inactive colitis, no polyps. Surveillance biopsies obtained GROSS DESCRIPTION 1. The specimen is received in formalin labeled Rosemary S. Davalos, Cecal Biopsies, and consists of four portions of white-cisneros tissue that each measure 0.6 x 0.2 x 0.2 cm. Submitted entirely, one cassette. 2. The specimen is received in formalin labeled Rosemary S. Davalos, Right Colon Biopsies, and consists of multiple portions of cisneros-white tissue that in aggregate measure 1.0 x 0.4 x 0.2 cm. Submitted entirely, one cassette. 3. The specimen is received in formalin labeled Rosemary S. Davalos, Transverse Colon Biopsies, and consists of multiple portions of white-cisneros tissue that in aggregate measure 1.0 x 0.5 x 0.2 cm. Submitted entirely, one cassette. 4. The specimen is received in formalin labeled Rosemary S. Davalos, Descending Colon Biopsies, and consists of multiple portions of white-cisneros tissue that in aggregate measure 0.6 x 0.5 x 0.2 cm. Submitted entirely, one cassette. 5. The specimen is received in formalin labeled Rosemary S. Davalos, Sigmoid Colon Biopsies, and consists of multiple portions of white-cisneros tissue that in aggregate measure 1.0 x 0.8 x 0.2 cm. Submitted entirely, one cassette. 6. The specimen is received in formalin labeled Rosemary S. Davalos, Rectal Biopsies, and consists of multiple portions of white-cisneros tissue that in aggregate measure 0.6 x 0.5 x 0.2 cm. Submitted entirely, one cassette. CONTINUED ON NEXT PAGE * ML=Testing performed at Main Lab DEPARTMENT OF PATHOLOGY, [address] [place] [address] Noble Izquierdo M.D. Director [facility] Permit #[id number] RUN DATE: 02/13/13 [facility] LAB LIVE PAGE 3 RUN TIME: [address] [place] [address] Specimen Inquiry Patient: ROSEMARY DAVALOS [id number] (Continued) GROSS DESCRIPTION (Continued) Signed (signature on file) Florecita Snyder MD 1606 END OF REPORT * ML=Testing performed at Main Lab DEPARTMENT OF PATHOLOGY, [address] [place] [address] Noble Izquierdo M.D. Director [facility] Permit #[id number] HDL Interpretation: Undesirable: High Risk: Less than 40 MG/DL Desirable: Low Risk: Greater than 60 MG/DL 20 LDL Interpretation: Low Risk Optimal Level: LDL Less than 100 MG/DL Near or Above Optimal: LDL 100-129 MG/DL Borderline High Risk: LDL 130-159 MG/DL High Risk: LDL 160-189 MG/DL Very High Risk: LDL Greater than 189 MG/DL 21 A metabolite of Naproxen, O-desmethylnaproxen, has been shown to interfere with the Jendrassik-[place] method for measuring total bilirubin. Samples from patients who have taken Naproxen have shown spurious elevation in total bilirubin levels. 22 Because ethnic data is not always readily [...] 15-29 5 Kidney failure <15 (or dialysis) 23 HDL Interpretation: Undesirable: High Risk: Less than 40 MG/DL Desirable: Low Risk: Greater than 60 MG/DL 24 LDL Interpretation: Low Risk Optimal Level: LDL Less than 100 MG/DL Near or Above Optimal: LDL 100-129 MG/DL Borderline High Risk: LDL 130-159 MG/DL High Risk: LDL 160-189 MG/DL Very High Risk: LDL Greater than 189 MG/DL 25 Fasting 26 Test Performed by: [facility] Dpt of Lab Med and Pathology [address] [place] [address] Digital Cartographer: Doroteo Frias III, M.D. 27 -- REFERENCE VALUE -- 25-HYDROXY D TOTAL (D2+D3) Optimum levels in the normal population are 25-80 Test Performed by: [facility] Dpt of Lab Med and Pathology [address] [place] [address] Digital Cartographer: Doroteo Frias III, M.D. 28 Recommended INR for Patients on Oral Anticoagulants Prophylaxis 2.0 - 3.0 Treatment of thrombosis 2.0 - 3.0 Prevention of embolism 2.0 - 3.0 Prevention of embolism from prosthetic heart valves 2.5 - 3.5 29 DIAGNOSIS,TREATMENT,AND THERAPY MUST BE BASED ON THE INR VALUE ALONE. 30 Recommended INR for Patients on Oral Anticoagulants Prophylaxis 2.0 - 3.0 Treatment of thrombosis 2.0 - 3.0 Prevention of embolism 2.0 - 3.0 Prevention of embolism from prosthetic heart valves 2.5 - 3.5 31 DIAGNOSIS,TREATMENT,AND THERAPY MUST BE BASED ON THE INR VALUE ALONE. 32 Recommended INR for Patients on Oral Anticoagulants Prophylaxis 2.0 - 3.0 Treatment of thrombosis 2.0 - 3.0 Prevention of embolism 2.0 - 3.0 Prevention of embolism from prosthetic heart valves 2.5 - 3.5 33 DIAGNOSIS,TREATMENT,AND THERAPY MUST BE BASED ON THE INR VALUE ALONE. 34 [facility]: 1232 Specimen Inquiry RUN USER: INTERFACE Name: DAVALOSROSEMARY S Status: REG REF Re03/16/11 Age/Sex: 60/M Unit#: [id number] Location: [facility] : [birth year] SPEC #: [id number] GUILHERME: 03/16/11 STATUS: BEATRIS BUTLER #: [id number] RECD: 03/17/[address]: Elizabeth Zamarripa SOURCE: URINE ENTR: 03/17/[address]: MARK: ORDERED: GC/CHL APTIMA QUERIES: MEDENT REQUISITION # [id number] ACT WKST: GCCHL 03/21/11 #1 Procedure Result [...] result may have adverse psychosocial impact, the [facility] recommends retesting by a method using an [...] than a true positive. DEPARTMENT OF PATHOLOGY, [address] [place] [address] [facility] Permit #[id number] Whitney Shay M.D. [employer] Assembly Machine Operator RUN DATE: 03/21/11 [facility] NMI LIVE PAGE 2 RUN TIME: 1232 Specimen Inquiry RUN USER: INTERFACE Name: ROSEMARY DAVALOS Status: REG REF Re03/16/11 Age/Sex: 60/M Unit#: [id number] [facility] [birth year] -- -- CONTINU ED Procedure [...] result may have adverse psychosocial impact, the [facility] recommends retesting by a method using an [...] may be higher than a true positive. [facility] Permit #[id number] [facility] [employer] [facility] [address] DEPARTMENT OF PATHOLOGY, [facility] [employer] [place], [place] [address] [facility] Permit #[id number] Noble Izquierdo M.D. Director Maycol Woodard M.D. [employer] Machine Operator 35 Test Performed by: [facility] Dpt of Lab Med and Pathology [address] [place] [address] Digital Cartographer: Doroteo Frias III, M.D. 36 Test Performed by: [facility] Dpt of Lab Med and Pathology [address] [place] [address] Digital Cartographer: Doroteo Frias III, M.D. 37 CHOLESTEROL INTERPRETATION: Desirable: Less than 200 MG/DL Borderline-High Risk: 200-239 MG/DL High-Risk: 240 MG/DL and over 38 HDL INTERPRETATION: Undesirable: High Risk: Less than 40 MG/DL Desirable: Low Risk: Greater than 60 MG/DL 39 LDL INTERPRETATION: Low Risk Optimal Level: LDL Less than 100 MG/DL Near or Above Optimal: LDL 100-129 MG/DL Borderline High Risk: LDL 130-159 MG/DL High Risk: LDL 160-189 MG/DL Very High Risk: LDL Greater than 189 MG/DL 40 Recommended INR for Patients on Oral Anticoagulants Prophylaxis 2.0 - 3.0 Treatment of thrombosis 2.0 - 3.0 Prevention of embolism 2.0 - 3.0 Prevention of embolism from prosthetic heart valves 2.5 - 3.5 41 DIAGNOSIS,TREATMENT,AND THERAPY MUST BE BASED ON THE INR VALUE ALONE. 42 Recommended INR for Patients on Oral Anticoagulants Prophylaxis 2.0 - 3.0 Treatment of thrombosis 2.0 - 3.0 Prevention of embolism 2.0 - 3.0 Prevention of embolism from prosthetic heart valves 2.5 - 3.5 43 DIAGNOSIS,TREATMENT,AND THERAPY MUST BE BASED ON THE INR VALUE ALONE. 44 Recommended INR for Patients on Oral Anticoagulants Prophylaxis 2.0 - 3.0 Treatment of thrombosis 2.0 - 3.0 Prevention of embolism 2.0 - 3.0 Prevention of embolism from prosthetic heart valves 2.5 - 3.5 45 DIAGNOSIS,TREATMENT,AND THERAPY MUST BE BASED ON THE INR VALUE ALONE. 46 Recommended INR for Patients on Oral Anticoagulants Prophylaxis 2.0 - 3.0 Treatment of thrombosis 2.0 - 3.0 Prevention of embolism 2.0 - 3.0 Prevention of embolism from prosthetic heart valves 2.5 - 3.5 47 ATTENTION EFFECTIVE 09/10/08, THE IMPLEMENTATION OF NEW COAGULATION ANLAYZERS HAS CAUSED A SIGNIFICANT DIFFERENCE FOR PROTIME RESULTS IN SECONDS. THEREFORE, DIAGNOSIS,TREATMENT,AND THERAPY MUST BE BASED ON THE INR VALUE ONLY. 48 Recommended INR for Patients on Oral Anticoagulants Prophylaxis 2.0 - 3.0 Treatment of thrombosis 2.0 - 3.0 Prevention of embolism 2.0 - 3.0 Prevention of embolism from prosthetic heart valves 2.5 - 3.5 49 DIAGNOSIS,TREATMENT,AND THERAPY MUST BE BASED ON THE INR VALUE ALONE. 50 Recommended INR for Patients on Oral Anticoagulants Prophylaxis 2.0 - 3.0 Treatment of thrombosis 2.0 - 3.0 Prevention of embolism 2.0 - 3.0 Prevention of embolism from prosthetic heart valves 2.5 - 3.5 51 DIAGNOSIS,TREATMENT,AND THERAPY MUST BE BASED ON THE INR VALUE ALONE. 52 A metabolite of Naproxen, O-desmethylnaproxen, has been shown to interfere with the Jendrassik-Pulaski method for measuring total bilirubin. Samples from patients who have taken Naproxen have shown spurious elevation in total bilirubin levels. 53 Please note updated reference range, effective 11/19/09 54 RESULTS CONFIRMED BY REPEAT ANALYSIS. REPEATED RESULT WAS 32 55 RESULTS CONFIRMED BY REPEAT ANALYSIS. REPEATED RESULT WAS 23 56 * SERUM LEVELS OF PSA MEASURED USING THE [employer] ACCESS HYBRITECH IMMUNOASSAY SHOULD NOT BE INTERPRETED ABSOLUTE EVIDENCE OF THE PRESENCE OR ABSENCE OF DISEASE. THE PSA VALUE SHOULD BE USED IN CONJUNCTION WITH OTHER PERTINENT CLINICAL DIAGNOSTIC PROCEDURES. 57 Recommended INR for Patients on Oral Anticoagulants Prophylaxis 2.0 - 3.0 Treatment of thrombosis 2.0 - 3.0 Prevention of embolism 2.0 - 3.0 Prevention of embolism from prosthetic heart valves 2.5 - 3.5 58 DIAGNOSIS,TREATMENT,AND THERAPY MUST BE BASED ON THE INR VALUE ALONE. 59 Anion gap measurement may be of limited value in the presence of any alkalosis, especially in a combined acid base disorder. . 60 A metabolite of Naproxen, O-desmethylnaproxen, has been shown to interfere with the Jendrassik-Pul[place]i method for measuring total bilirubin. Samples from patients who have taken Naproxen have shown spurious elevation in total bilirubin levels. 61 Because ethnic data is not always readily [...] 15-29 5 Kidney failure <15 (or dialysis) 62 Recommended INR for Patients on Oral Anticoagulants Prophylaxis 2.0 - 3.0 Treatment of thrombosis 2.0 - 3.0 Prevention of embolism 2.0 - 3.0 Prevention of embolism from prosthetic heart valves 2.5 - 3.5 63 DIAGNOSIS,TREATMENT,AND THERAPY MUST BE BASED ON THE INR VALUE ALONE. 64 FINAL INTERPRETATION: No HIV antibody is detected. . This information has been disclosed to you from confidential records which are protected by [place] State law. State law prohibits you from making further disclosure of this information without the specific written consent of the person to whom it pertains, or as otherwise permitted by law. Any unauthorized further disclosure in violation of state law may result in a fine or chcf sentence or both. General authorization for the release of medical or other information is not, except in limited circumstances set forth in Part 63, Title 10, of [facility], sufficient authorization for further disclosure. Disclosure of confidential HIV information that occurs as the result of a general authorization for the release of medical or other information will be in violation of the state law and may result in a fine or a chcf sentence. . 65 Recommended INR for Patients on Oral Anticoagulants Prophylaxis 2.0 - 3.0 Treatment of thrombosis 2.0 - 3.0 Prevention of embolism 2.0 - 3.0 Prevention of embolism from prosthetic heart valves 2.5 - 3.5 66 DIAGNOSIS,TREATMENT,AND THERAPY MUST BE BASED ON THE INR VALUE ALONE. 67 Test Performed by: [facility] [address] [place] [address] Digital Cartographer: Doroteo Frias III, M.D. 68 Test Performed by: [facility] [address] [place] [id number] Digital Cartographer: Doroteo Frias III, M.D. Procedures Date Code Description Status 06/22/201819788 Inject/Drain Joint/Bursa Major W/O US Completed 11/28/201723168 Inject/Drain Joint/Bursa Major W/O US Completed 01/17/201775045 Inject/Drain Joint/Bursa Major W/O US Completed 12/08/2016 15358 ECHO Transthorasic Realtime 2D W Doppler & Color Flow Completed Hosp 10/28/201617085 Inject/Drain Joint/Bursa Major W/O US Completed 07/25/201694951 Inject/Drain Joint/Bursa Major W/O US Completed 11/20/2013 08569 EEG Recording Awake & Drowsy Completed 04/17/2013 49057 Stress Test Completed 03/23/2013 25149 Holter Monitor Review (24 hr)dr richardson & interp only Completed 03/13/2013 88020 EKG Tracing & Interpretation Completed 02/11/2013 61253248 Colonoscopy Completed 04/05/2012 69600 EKG Tracing & Interpretation Completed 02/21/2012 27134 Destruction Of Benign Lesions Any Method 1-14 lesions Completed 02/10/2010 25331234 Colonoscopy Completed 01/25/2010 02093 EKG Tracing & Interpretation Completed 02/26/2009 75713 EKG Tracing & Interpretation Completed 11/16/2007 12316 EKG Tracing & Interpretation Completed 11/09/2006 27931 EKG Tracing & Interpretation Completed 11/08/2006 [id number] Colonoscopy Completed Encounters Type Date Location Provider Dx Diagnosis Office Visit 07/20/2018 Orthopedic Brittnee Narayanan, M25.562 Pain in left knee 3:15p Services Of Petty Olson M25.561 Pain in right knee M25.462 Effusion, [...] Office Visit 11/24/2017 1:00p Orthopedic Services Brittnee Narayanan, M25.561 Pain in right Of C.M.A. M.D. knee M25.562 Pain in left knee M25.462 [...] [place] San, G56.21 Lesion of Services Of C.M.A. MCaleDCale ulnar nerve, right upper limb S43.422D Sprain of left rotator cuff capsule, subsequent encounter Office Visit 07/25/2016 11:00a Orthopedic Services [place] San, M54.2 Cervicalgia Of C.M.ACale Olson G56.21 Lesion of ulnar nerve, right upper limb S43.422A Sprain of left rotator cuff capsule, initial encounter Office Visit 10/29/2014 4:00p Orthopedic Brittnee 715.16 Osteoarthrosis Services Of Whitney Narayanan Localized Prim Lower C.M.A. Leg 719.06 Effusion Joint Lower Leg 719.46 Pain Joint Lower Leg Office Visit 10/28/2014 11:45a [facility] Khoi Hathaway, 723.1 Cervicalgia Services Of [facility] Jorgito.Jame 784.0 Headache Office Visit 06/24/2014 3:45p [facility] Khoi Hathaway, 723.1 Cervicalgia Services Of Lisa Bull.Jame Office Visit 03/18/2014 3:00p [facility] Khoi Hathaway, 723.1 Cervicalgia Services Of [facility] Whitney 784.0 Headache Office Visit 09/09/2013 1:40p [facility] Internal Mariajose Carlson, 719.49 Pain Joint Medicine Whitney Multiple Sites 356.8 Neuropathy Other Spec Idiopathic Peripheral Office Visit 09/06/2013 10:20a [facility] Internal Mariajose Carlson, 782.0 Skin Sensation Medicine M.Jame Disturbance 288.50 Leukocytopenia, Unspecified Office Visit 08/21/2013 4:00p [facility] Internal Linda Perez, 784.0 Headache Medicine MCaleDCale, FACP Office Visit 08/15/2013 1:00p [facility] Internal Linda Perez, 388.31 Tinnitus Medicine M.DCale, FACP Subjective 300.00 Anxiety State Unspec Office Visit 08/12/2013 2:30p [facility] Services Of [place] 300.00 Anxiety State C.M.A. AT Whitney Rodrigues Unspec [place] 388.30 Tinnitus Unspecified Office Visit 08/12/2013 10:00a [facility] Internal Elizabeth Nieto 388.30 Tinnitus Medicine N.P. Unspecified 300.00 Anxiety State Unspec Office Visit 04/08/2013 9:40a [facility] Internal Linda Perez, V70.0 Examination Medicine MCaleDCale, FACP General Medical Routine AT Health Care Facility 401.1 Hypertension Benign 272.0 Hypercholesterolemia Pure 556.9 Ulcerative Colitis Unspec 786.50 Pain Chest Unspec 300.00 Anxiety State Unspec Office Visit 03/13/2013 9:20a [facility] Internal Linda Perez, 786.50 Pain Chest Medicine M.D., FACP Unspec 780.79 Malaise And Fatigue Other V04.81 Need For Prophylactic Vaccination & Inoculation/Influenza 272.0 Hypercholesterolemia Pure Office Visit 01/11/2013 3:20p [facility] Internal Mariajose Carlson, 727.06 Tenosynovitis Foot Medicine M.D. & Ankle Office Visit 12/27/2012 4:20p [facility] Internal Linda Perez, 719.49 Pain Joint Multiple Medicine M.D., FACP Sites 300.00 Anxiety State Unspec 556.9 Ulcerative Colitis Unspec Office Visit 08/29/2012 9:20a [facility] Internal Linda Perez, 719.49 Pain Joint Medicine M.D., FACP Multiple Sites 311 Depressive Disorder Not Elsewhere Spec Office Visit 06/06/2012 [facility] Internal Linda Perez, 272.0 Hypercholesterolemia Pure 2:40p Medicine M.D., FACP 719.49 Pain Joint Multiple Sites Office Visit 04/05/2012 2:40p [facility] Internal Linda Perez, V70.0 Examination Medicine M.D., FACP General Medical Routine AT Health Care Facility 401.1 Hypertension Benign 556.9 Ulcerative Colitis Unspec 272.0 Hypercholesterolemia Pure 719.49 Pain Joint Multiple Sites V04.89 Need For Prophylactic Vaccination & Inoculation Other Virus Office Visit 02/21/2012 10:00a [facility] Internal Linda Perez, 719.88 Joint Disorder Medicine M.D., FACP Other Spec Sites 078.12 Plantar Wart 401.1 Hypertension Benign V04.81 Need For Prophylactic Vaccination & Inoculation/Influenza Office Visit 05/11/2011 4:00p [facility] Internal Linda Perez, 401.1 Hypertension Benign Medicine M.D., FACP 451.11 Phlebitis & Thrombophlebitis Femoral Vein (Deep)(Superficial 556.9 Ulcerative Colitis Unspec Office 03/16/2011 DO Not Use Elizabeth V74.5 Screening Examination Visit 2:20p [facility]-Fay Nieto N.P. Venereal Disease Office 02/28/2011 DO Not Use Lindaamanda Perez, 451.11 Phlebitis & Visit 11:00a Alondra Olson, [...] Visit 01/25/2011 4:00p DO Not Use Elizabeth Varn, 782.3 Edema Alondra N.P. Office Visit 12/29/2010 2:40p DO Not Use Linda Ana, 726.19 Shoulder Alondra Olson, FACP Disorders Other [...] DO Not Use Linda Ana, V70.0 Examination Club Director-Fay Olson, FACP General Medical Routine AT Health Care Facility 556.9 Ulcerative Colitis Unspec 785.1 Palpitations 401.1 Hypertension Benign 780.79 Malaise And Fatigue Other Office Visit 02/05/2007 12:00p DO Not Use Linda Ana, 465.9 URI Upper Club DirectorLurdes Olson, FACP Respiratory Infections Acute Unspec Sites 311 Depressive Disorder Not Elsewhere Spec Office Visit 11/09/2006 11:15a DO Not Use Linda Ana, 556.9 Ulcerative Club Director-Fay Bull.Noah., FACP Colitis Unspec 780.79 Malaise And Fatigue [...] Brittnee Narayanan M.D. at [facility].08/27/2018 1:30 pm - LANCE Lee at [facility].08/27/2018 1:30 pm - Brittnee Narayanan M.D. at [facility].08/17/2018 - Brittnee Narayanan M.D.M25.562 Pain in left kneeNew Xrays:Knee 3 Views Bilateral, Ordered: 08/17/18Follow up:Follow up: 2 weeks after mgtvpumS26.561 Pain in right kneeNew Xrays:Knee 3 Views Bilateral, Ordered : 08/17/18M25.462 Effusion, left kneeM25.461 Effusion, right kneeM17.0 Bilateral primary osteoarthritis of knee
[2018-08-27] MEDS: Famotidine TAB* 20 MG PO ONE ×2 (09:10→09:11)
[2018-08-27] MEDS: Acetaminophen TAB* 325 MG PO ONE ×2 (09:10→09:11)
[2018-08-27] MEDS: Dexamethasone IV* 4 MG/ML 1 ML (4 MG) IV SLOW PU ONE ×2 (09:10→09:11)
[2018-08-27] MEDS: celeCOXIB CAP* 200 MG PO ONE ×2 (09:11→19:20)
[2018-08-27] MEDS: Gabapentin CAP(*) 300 MG PO ONE ×2 (09:11→09:12)
[2018-08-27] MEDS ORDERED: Midazolam* 1 MG/ML 5 ML VIAL (5 MG) ONE (09:33)
[2018-08-27] MEDS ORDERED: fentaNYL* 50 MCG/ML 2 ML VIAL (100 MCG VIAL) ONE ×2 (09:33→15:40)
[2018-08-27] MEDS ORDERED: Propofol* 10 MG/ML 20 ML BTL ONE ×3 (09:33→12:47)
[2018-08-27] MEDS ORDERED: Lidocaine 1%* 5 ML VIAL ONE (10:59)
[2018-08-27] MEDS ORDERED: ROPIVACAINE 5 MG/ML 30 ML BTL (0.5%) ONE ×2 (10:59→13:04)
[2018-08-27] MEDS ORDERED: KETAMINE HCL* 50 MG/ML 10 ML VIAL ONE (12:04)
[2018-08-27] MEDS ORDERED: EPINEPHRINE 1 MG/ML 1 ML VIAL ONE (12:23)
[2018-08-27] MEDS ORDERED: oxyCODONE TAB* 5 MG TAB PO PRN (13:12)
[2018-08-27] MEDS ORDERED: Ondansetron INJ* 2 MG/ML VIAL IV PRN ×2 (13:12→15:18)
[2018-08-27] MEDS ORDERED: Ibuprofen TAB* 600 MG PO PRN (13:12)
[2018-08-27] MEDS ORDERED: Acetaminophen IV 1GM/100ML * 1,000 MG/100 ML VIAL IVPB ONE (13:12)
[2018-08-27] MEDS ORDERED: Naloxone* 0.4 MG/ML 1 ML VIAL IV PRN (13:12)
[2018-08-27] MEDS ORDERED: Propofol* 500 MG/50 ML BTL ONE (13:24)
[2018-08-27] MEDS ORDERED: Polyethylene Glycol 3350* 17 GM PACKET PO PRN (15:18)
[2018-08-27] MEDS ORDERED: Magnesium Hydroxide LIQ* 30 ML UDC PO PRN (15:18)
[2018-08-27] MEDS ORDERED: Ondansetron TAB* 4 MG PO PRN (15:18)
[2018-08-27] MEDS ORDERED: diPHENhydraMINE IV* 50 MG/ML 1 ml VIAL (BENADRYL) IV PRN (15:18)
[2018-08-27] MEDS ORDERED: Bisacodyl SUPP* 10 MG SUPP PR PRN (15:18)
[2018-08-27] MEDS ORDERED: ALPRAZolam TAB* 0.5 MG PO PRN (15:25)
[2018-08-27] MEDS ORDERED: Acetaminophen IV 1GM/100ML * 100 ML ONE (15:41)
[2018-08-27] MEDS ORDERED: oxyCODONE TAB* 5 MG TAB ONE (15:41)
[2018-08-27] MEDS: fentaNYL* 50 MCG/ML 2 ML VIAL (100 MCG VIAL) IV PRN ×2 (15:43→16:12)
--- NOTE | 2018-08-27 15:49 | OP ---
Operative Report - Blank - Operative Report Date of Operation: 08/27/18 Note: ROSEMARY NEWBY 1950 Date of Surgery: 08/27/18 Brittnee Narayanan MD Sales Service Rep: Sharon LUCAS did help throughout the procedure with preparation of the knee, wound retraction, manipulation of the knee, and wound closure. Anesthesiologist: Delano Santoro MD Anesthesia Type: Spinal Preoperative Diagnosis: Right severe degenerative osteoarthritis of the knee Postoperative Diagnosis: As above Procedure Performed: Right Total Knee Arthroplasty Tourniquet time: 114 minutes Complications: None Specimen: Bone and cartilage from the right knee joint sent to pathology. Hardware Used: Cemented [employer] total knee hardware was used - For the femur a size 7 right legion posterior stabilized femoral component, for the tibia a size 6 right marilyn II tibial baseplate, for the insert a size 9mm 5-6 posterior stabilized articular polyethylene insert, and for the patella a size 35 3-peg all poly patella. Brief History/Indication: ROSEMARY NEWBY was known in clinic and had a history of severe right knee pain and swelling. He failed conservative treatment with anti-inflammatories, pain pills, intra-articular injections and physical therapy. He elected to undergo right total knee arthroplasty due to continued pain and decreased quality of life. Radiographs showed severe end stage osteoarthritis of the knee with bone on bone contact and severe varus deformity. . Informed consent was obtained from the patient. He understood the risks of surgery included but were not limited to: bleeding, infection, damage to nearby structures, intraoperative fracture, nerve palsy, failure of the hardware, early loosening, knee stiffness or loss of motion, anesthesia complications, stroke, heart attack, blood clot and . He wished to proceed. The patient requested navio robotic surgery and accepted additional pin site risks of infection and fracture. Intra-Operative Findings: Intraoperatively the patient was noted to have severe loss of cartilage in all 3 compartments of the knee. He had preoperative varus deformity of 20 degrees and flexion of 15-85 degrees. By case end, this was corrected to anatomic alignment, and 0-130 degrees of flexion. Description of the Procedure: ROSEMARY NEWBY was identified in the preanesthesia unit. His right knee was marked as the correct operative side. Informed consent was signed and placed in the chart. The patient was taken to the operating room and placed under anesthesia without complication. A pagan catheter was placed. A tourniquet was placed on the right thigh. The right lower extremity was prepped and draped in the usual sterile fashion. Preoperative time-out was made to correctly identify the patient, side and site. Appropriate intraoperative antibiotics were given within one hour of incision. Tourniquet was inflated. A midline incision was made and carried sharply down to the extensor mechanism. A new 10 blade was used to make a standard medial parapatellar arthrotomy. The patella was subluxed laterally. Electrocautery was used to dissect soft tissue off the superomedial tibia to the midsagittal plane. The knee was flexed up. The anterior horn of the lateral meniscus and the ACL/PCL were sharply incised. Two femoral and two tibial 4 mm pins were placed and the arrays for the navio were set up. The femoral and tibial small pins were also placed. The checkpoints were entered into the computer and the femur/tibia were mapped using the navio software and stylus. The femoral and tibial implants were chosen and alignment was chosen on the computer. The robotic viviane was used to remove the distal femoral bone. The pin sites were made with the stylus for the size 7 jig. The size 7 multi-cutting jig was pinned on the distal femur. The oscillating saw was used to make the appropriate 4 chamfer cuts. The robotic viviane was then used to make two tibial tunnels and the tibial cutting jig was pinned in the proper position. An oscillating saw was used to make the tibial cut. The bone was carefully removed. The knee was brought out into full extension. The spacer block was placed and had medial tightness. Additional medial release was performed. . The medial and lateral ligaments were well balanced. The flexion and extension gaps were well balanced. The knee was flexed up. Lamina three knife trimmer was placed both medially and laterally. Any remaining meniscus was removed with electrocautery. Curved osteotome was used to remove any posterior osteophytes. The tibial tray and drop makenna were placed and confirmed a satisfactory tibial cut. The size 7 femoral trial was impacted onto the distal femur. This trial had excellent fit and stability. The box for the posterior stabilized implant was prepared using a box cut osteotome and a reamer. Next a tibial tray trial and 9 mm insert trial was placed. The knee was taken through a range of motion and had full extension to 130 degrees of flexion. Patellofemoral tracking was satisfactory. The patella was inverted and sized to a size 35. Three peg holes were drilled through the size 35 drill guide. The trial patella was placed and the knee was taken through a range of motion. There was satisfactory patellofemoral tracking. All trials were removed. The tibia was subluxed anteriorly and sized to a size 6. The proximal tibial was prepared with a size 6 keel punch. All navio robotic pins were carefully removed without complication. All bony cut surfaces were irrigated with sterile saline and dried. Final implants were cemented into place starting with the tibia, followed by the femur , and last the patella. A 9 mm insert trial was placed and the knee was brought into full extension. Tourniquet was turned down and the knee was copiously irrigated with sterile saline. Electrocautery was used to obtain meticulous hemostasis. Once the cement had fully cured, the insert trial was removed. Any excess cement was removed from around the hardware and capsule. Final insert chosen was a 9 mm posterior stabilized Marilyn II articular insert size 5-6. Stability of the insert was checked and noted to be stable. The extensor mechanism was closed using number 1 vicryls. The rest of the incision was closed in a layered fashion using 0 and 2-0 vicryls. The skin was closed using 3-0 nylon suture. Sterile xeroform, 4x4s and webril were used to cover the incision. Seamus wrap and cold pack were used to cover the dressings. The patients anesthesia was reversed without difficulty. He was taken to the PACU in stable condition. Intended weight-bearing will be as tolerated.
[2018-08-27] MEDS ORDERED: Acetaminophen TAB* 325 MG PO SCH (16:00)
[2018-08-27] MEDS ORDERED: Ondansetron INJ* 2 MG/ML VIAL ONE (16:02)
[2018-08-27] MEDS ORDERED: DiMENhydriNATE IV* 50 MG/ML VIAL ONE (17:03)
[2018-08-27] MEDS ORDERED: HYDROmorphone INJ1* 1 MG/ML SYRINGE ONE (17:34)
[2018-08-27] MEDS: HYDROmorphone INJ1* 1 MG/ML SYRINGE IV PRN ×2 (17:34→17:50)
[2018-08-27] MEDS ORDERED: Ibuprofen TAB* 600 MG ONE (17:49)
[2018-08-27] MEDS: Lactated Ringers 1000 ML Bag* 1,000 ML IV SCH (18:37)
[2018-08-27] MEDS: sulfaSALAzine TAB* 500 MG PO SCH ×2 (19:40→21:26)
[2018-08-27] MEDS: oxyCODONE/Acetamin 5/325 MG* TAB PO PRN ×2 (19:44→23:55)
[2018-08-27] MEDS: traMADol TAB* 50 MG PO PRN (19:45)
[2018-08-27] MEDS: ceFAZolin 1 GM ADVAN(*) 1 GM in NS 0.9% 50 ML* 50 ML IVPB SCH (20:10)
[2018-08-27] MEDS: Docusate CAP* 100 MG PO SCH (21:26)
[2018-08-27] MEDS: Cyclobenzaprine TAB* 10 MG PO PRN (21:26)
[2018-08-27] MEDS: Magnesium Hydroxide LIQ* 30 ML UDC PO SCH (21:27)
[2018-08-27] MEDS: Acetaminophen TAB* 325 MG PO SCH (22:08)
[2018-08-27] MEDS: oxyCODONE TAB* 5 MG TAB PO PRN (22:08)
[2018-08-28] MEDS: Morphine 4 MG/ML VIAL (1 ml) 4 MG/ML VIAL IV PRN ×4 (00:45→10:30)
[2018-08-28] MEDS: traMADol TAB* 50 MG PO PRN ×3 (02:20→15:32)
[2018-08-28] MEDS: oxyCODONE TAB* 5 MG TAB PO PRN ×5 (02:21→18:18)
[2018-08-28] MEDS: oxyCODONE/Acetamin 5/325 MG* TAB PO PRN ×2 (04:21→17:32)
[2018-08-28] MEDS: Cyclobenzaprine TAB* 10 MG PO PRN ×2 (04:22→11:33)
[2018-08-28] MEDS: ceFAZolin 1 GM ADVAN(*) 1 GM in NS 0.9% 50 ML* 50 ML IVPB SCH ×2 (04:29→11:34)
[2018-08-28] MEDS: Lactated Ringers 1000 ML Bag* 1,000 ML IV SCH (04:44)
[2018-08-28] MEDS: Acetaminophen TAB* 325 MG PO SCH ×3 (05:11→22:30)
[2018-08-28 05:55] LABS: Hematocrit 28 % (36-46); Hemoglobin 9.7 g/dL (14.0-18.0); Mean Platelet Volume 7.4 fL (7.4-10.4); Platelet Count 194 10^3/uL (150-450)
[2018-08-28 06:15] LABS: BUN/Creatinine Ratio 19.5 (8-20); Calcium 8.3 mg/dL (8.6-10.3); EGFR African American 121.2 (>60); EGFR Non-African American 100.2 (>60); Potassium 3.6 mmol/L (3.5-5.0)
[2018-08-28] MEDS: Morphine TAB Extended Release (*) 30 MG TAB.ER PO SCH ×2 (07:40→20:17)
[2018-08-28] MEDS: Docusate CAP* 100 MG PO SCH ×2 (08:45→20:16)
[2018-08-28] MEDS: Rivaroxaban TAB(*) 10 MG PO SCH (08:45)
[2018-08-28] MEDS: Magnesium Hydroxide LIQ* 30 ML UDC PO SCH ×2 (08:46→20:16)
[2018-08-28] MEDS: Losartan TAB* 25 MG PO SCH (08:46)
--- NOTE | 2018-08-28 09:24 | PN ---
Progress Note - Progress Note Date of Service: 08/28/18 SOAP: Subjective: []Pt seen at bedside. He feels very well this morning with well controlled pain , overnight he reports difficulty with pain control. Denies CP, SOB, Dizziness, Nausea, Calf pain. Objective: [] General: Appears well, NAD RLE: dressing CDI, thigh soft, DF/PF intact, DP2+, sensation intact to light touch distally Calves supple and nontender without erythema, edema or palpable cords Assessment: []POD 1 sp RTK HX Factor 5 leiden, hx DVT Plan: []WBAT PT/OT Xarelto 10 mg qd for DVT x 30 days for DVT prophylaxis Has not yet worked with PT, home this afternoon or tomorrow. Patient lives alone and is worried about pain control/ ability to care for himself tonight Vital Signs Temp 98.2 F 08/28/18 03:53 Pulse 71 08/28/18 03:53 Resp 18 08/28/18 09:11 BP 100/51 08/28/18 03:53 Pulse Ox 95 08/28/18 03:53 Intake & Output 08/27/18 08/28/18 08/28/18 18:59 06:59 18:59 Intake Total 2250 1400 110 Output Total 400 450 Balance 1850 950 110 Weight 176 lb Intake: IV Fluids 2250 980 110 ABX - CEFAZOLIN 110 LR 2200 980 NS 50ML, Cefazolin 2G 50 Oral 420 Output: Obrien 100 450 Emesis 150 Estimated Blood Loss 150 Other: # Bowel Movements 0 Laboratory Last Values Hgb 9.7 g/dL (14.0-18.0) L 08/28/18 05:29 Hct 28 % (36-46) L 08/28/18 05:29 Plt Count 194 10^3/uL (150-450) 08/28/18 05:29 MPV 7.4 fL (7.4-10.4) 08/28/18 05:29 Sodium 138 mmol/L (135-145) 08/28/18 05:29 Potassium 3.6 mmol/L (3.5-5.0) 08/28/18 05:29 Chloride 104 mmol/L (101-111) 08/28/18 05:29 Carbon Dioxide 27 mmol/L (22-32) 08/28/18 05:29 Anion Gap 7 mmol/L (2-11) 08/28/18 05:29 BUN 15 mg/dL (6-24) 08/28/18 05:29 Creatinine 0.77 mg/dL (0.67-1.17) 08/28/18 05:29 Est GFR ( Amer) 121.2 (>60) 08/28/18 05:29 Est GFR (Non-Af Amer) 100.2 (>60) 08/28/18 05:29 BUN/Creatinine Ratio 19.5 (8-20) 08/28/18 05:29 Glucose 122 mg/dL (70-100) H 08/28/18 05:29 Calcium 8.3 mg/dL (8.6-10.3) L 08/28/18 05:29
[2018-08-28] MEDS: sulfaSALAzine TAB* 500 MG PO SCH ×4 (11:32→20:16)
[2018-08-28] MEDS: Morphine INJ* 2 MG/ML 1 ML SYRINGE (TWO MG - NEW SYRINGE VERSION) IV PRN ×2 (13:41→15:34)
[2018-08-28] MEDS: Gabapentin CAP(*) 300 MG PO SCH (20:16)
[2018-08-29] MEDS: oxyCODONE/Acetamin 5/325 MG* TAB PO PRN ×4 (00:30→22:34)
[2018-08-29] MEDS: oxyCODONE TAB* 5 MG TAB PO PRN ×2 (03:53→08:56)
[2018-08-29] MEDS: Acetaminophen TAB* 325 MG PO SCH ×2 (05:57→13:00)
[2018-08-29 06:45] LABS: Hematocrit 29 % (36-46); Hemoglobin 9.7 g/dL (14.0-18.0); Mean Platelet Volume 8.1 fL (7.4-10.4); Platelet Count 178 10^3/uL (150-450)
[2018-08-29] MEDS: traMADol TAB* 50 MG PO PRN (06:54)
[2018-08-29] MEDS: Losartan TAB* 25 MG PO SCH (08:56)
[2018-08-29] MEDS: Magnesium Hydroxide LIQ* 30 ML UDC PO SCH ×2 (08:58→21:41)
[2018-08-29] MEDS: Morphine TAB Extended Release (*) 30 MG TAB.ER PO SCH ×2 (08:58→20:11)
[2018-08-29] MEDS: Gabapentin CAP(*) 300 MG PO SCH ×2 (08:58→21:42)
[2018-08-29] MEDS: Docusate CAP* 100 MG PO SCH ×2 (08:58→21:41)
[2018-08-29] MEDS: Rivaroxaban TAB(*) 10 MG PO SCH (08:58)
[2018-08-29] MEDS: sulfaSALAzine TAB* 500 MG PO SCH ×4 (09:16→21:41)
--- NOTE | 2018-08-29 09:30 | PN ---
Progress Note - Progress Note Date of Service: 08/29/18 SOAP: Subjective: []Pt seen and examined OOB in chair. Denies CP, SOB, dizziness, nausea. Right knee remains painful though pain is much better controlled than yesterday. Confirms irritation of sciatica. Desires to stay in house tonight due to concern of caring for himself in the amount of pain he is in. Objective: [] General: Appears well, NAD RLE: dressing changed, incision CDI, thigh soft, DF/PF intact, DP2+, sensation intact to light touch distally Calves supple and nontender without erythema, edema or palpable cords Assessment: []POD 2 sp RTK HX Factor 5 leiden, hx DVT Plan: []WBAT PT/OT Xarelto 10 mg qd for DVT x 30 days for DVT prophylaxis DC home tomorrow morning Vital Signs Temp 98.9 F 08/29/18 07:25 Pulse 72 08/29/18 07:25 Resp 18 08/29/18 08:59 BP 115/55 08/29/18 07:25 Pulse Ox 96 08/29/18 07:25 Intake & Output 08/28/18 08/29/18 08/29/18 18:59 06:59 18:59 Intake Total 1288 840 Output Total 450 375 Balance 838 465 Intake: IV Fluids 278 ABX - CEFAZOLIN 220 LR 58 Oral 1010 840 Output: Urine 450 375 Other: # Bowel Movements 0 Laboratory Last Values Hgb 9.7 g/dL (14.0-18.0) L 08/29/18 02:48 Hct 29 % (36-46) L 08/29/18 02:48 Plt Count 178 10^3/uL (150-450) 08/29/18 02:48 MPV 8.1 fL (7.4-10.4) 08/29/18 02:48 Sodium 138 mmol/L (135-145) 08/28/18 05:29 Potassium 3.6 mmol/L (3.5-5.0) 08/28/18 05:29 Chloride 104 mmol/L (101-111) 08/28/18 05:29 Carbon Dioxide 27 mmol/L (22-32) 08/28/18 05:29 Anion Gap 7 mmol/L (2-11) 08/28/18 05:29 BUN 15 mg/dL (6-24) 08/28/18 05:29 Creatinine 0.77 mg/dL (0.67-1.17) 08/28/18 05:29 Est GFR ( Amer) 121.2 (>60) 08/28/18 05:29 Est GFR (Non-Af Amer) 100.2 (>60) 08/28/18 05:29 BUN/Creatinine Ratio 19.5 (8-20) 08/28/18 05:29 Glucose 122 mg/dL (70-100) H 08/28/18 05:29 Calcium 8.3 mg/dL (8.6-10.3) L 08/28/18 05:29
--- NOTE | 2018-08-29 23:44 | PN ---
PROGRESS NOTE: DATE OF VISIT: 08/29/18 HISTORY: Juanito Davalos is second day after total knee replacement of the right knee. He had bad pain last night, feels better today. He is planning to go home tomorrow. He has been taking extended release morphine,tramadol, and oxycodone for pain. He has had alprazolam for anxiety. His vital signs have been stable. He is eating and drinking okay. Vital signs: Blood pressure dipped down a bit low yesterday morning to 97/48, but has been in the 104-133/49-59 range since then. Temperature high 100.6. Other vital signs are stable. He is sitting up in the chair with cryo cuff on knee. IMPRESSION: 1. Hypertension, controlled post total knee replacement. 2. Pain control appears adequate at this point. 3. Disposition: Will go home tomorrow. Discussed with orthopedic PA. [id number]/[facility]ENN[facility] #: [id number] MEY
[2018-08-30] MEDS: Acetaminophen TAB* 325 MG PO SCH ×2 (00:28→06:16)
[2018-08-30] MEDS: oxyCODONE/Acetamin 5/325 MG* TAB PO PRN (06:02)
[2018-08-30] MEDS: Docusate CAP* 100 MG PO SCH (07:49)
[2018-08-30] MEDS: Morphine TAB Extended Release (*) 30 MG TAB.ER PO SCH (07:49)
[2018-08-30 08:01] LABS: Hematocrit 30 % (42-52); Mean Platelet Volume 8.2 fL (7.4-10.4); Platelet Count 193 10^3/uL (150-450)
[2018-08-30 08:33] VITALS: BP 115/60
[2018-08-30] MEDS: Magnesium Hydroxide LIQ* 30 ML UDC PO SCH (08:45)
[2018-08-30] MEDS: Losartan TAB* 25 MG PO SCH (08:52)
[2018-08-30] MEDS: Rivaroxaban TAB(*) 10 MG PO SCH (08:52)
[2018-08-30] MEDS: sulfaSALAzine TAB* 500 MG PO SCH (08:52)
[2018-08-30] MEDS: Gabapentin CAP(*) 300 MG PO SCH (08:56)
--- NOTE | 2018-08-30 09:37 | DS ---
Orthopedic Discharge Summary - Discharge Summary Date of Admission:08/27/18 Date of Discharge: 08/30/18 Date of Surgery: 08/27/18 Attending Orthopedic Provider: Dr Narayanan Pre-operative Diagnosis: right knee osteoarthritis Operative Procedure: right total knee arthroplasty Condition of Patient: stable History: ROSEMARY NEWBY is a 68 year old M with years of increasingly severe right knee pain. Patient has failed conservative management and has elected to undergo a right total knee replacement Hospital Course: ROSEMARY was admitted to [facility] on 08/27/18. Patient underwent a right total knee replacement without complication followed by a brief recovery in PACU and transfer to the Short Stay Surgical Unit in stable condition. Dr Espinosa, physical therapy and occupational therapy also participated in this patients care. Post-op day 1: patient was alert and in no acute distress. Dressing was clean, dry and intact. Operative extremity dorsiflexion and plantarflexion intact, sensation intact to light touch distally , DP2+. Post-op day two: dressing was changed, incision was clean, dry and intact. POD 3 dressing changed and incision CDI, pain was controlled. Patient was deemed to be medically and orthopedically stable for discharge home. Physical therapy goals were met. Discharge Medications Medication Instructions Recorded Confirmed Type sulfaSALAzine TAB* [Azulfidine 1,000 mg PO QID 02/08/13 08/17/18 History TAB*] Losartan Potassium [Cozaar] 50 mg PO QAM 10/06/16 08/17/18 History ALPRAZolam TAB* [Xanax TAB*] 0.5 - 1 mg PO DAILY PRN 01/02/18 08/17/18 History Acetaminophen TAB* [Tylenol TAB*] 975 mg PO 0600,1400,2200 tab 08/29/18 Rx Docusate CAP* [Colace Cap*] 100 mg PO BID PRN #90 cap 08/29/18 Rx Morphine TAB Extended Rel(*) [Ms 30 mg PO Q12H PRN #4 tab.er MDD 2 08/29/18 Rx Contin(*)] Rivaroxaban TAB(*) [Xarelto 10 mg 10 mg PO DAILY #30 tab 08/29/18 Rx (*)] oxyCODONE/Acetamin 5/325 MG* 1 tab PO Q4H PRN #0 tab MDD 10 08/29/18 Rx [Percocet 5/325 TAB*] oxyCODONE/Acetamin 5/325 MG* 2 tab PO Q4H PRN #50 tab MDD 10 08/29/18 Rx [Percocet 5/325 TAB*] Discharge Instructions following Orthopedic Surgery: Activity: * Weight Bearing as tolerated * Continue physical therapy and occupational therapy exercises as shown Wound care: * OK to shower on post-op day 3, no bathing, swimming, or submerging wound. * Use gentle soap, pat dry. Cover with gauze, JT wrap or tape. * Visiting home nurse to do wound checks. Call Orthopedic office for: * Increased drainage * Redness * Increased pain * Fever Go to ER with shortness of breath or chest pain. Diet: * Regular diet * Increase fluids and fiber to prevent constipation. * Continue to use stool softeners, call office if no bowel motion within 48 hours. Medications See Home Medication List in your packet for medications that you should take after discharge. DVT Prophylaxis: this medication increases bleeding tendency Xarelto Dosin mg daily x 30 days post op Pain Control: Percocet Dosin/325 mg 1-2 tabs by mouth every 4-6 hours as needed for pain. Maximum of 10 tabs per day.Wean off as soon as pain allows. hold for sedation Morphine 30 mg extended release tablet. 1 tab every 12 hours as needed for severe pain. Wean off as soon as pain allows. hold for sedation Please note that Percocet contains Tylenol (acetaminophen). Maximum daily dose of Tylenol is 4000 mg from all sources. Antibiotics are required prior to any dental work. FOLLOW UP: Follow up with [Oracio] Within 10-14 days, call for appointment Please call our office with any questions or concerns ([phone]) RX to [facility] [place]
== END 2018-08-30 11:07 | disposition home health service (06) | DRG 470 ==
LOC: AA 08:12 → SSU 18:39
PROVIDERS: ADMIT Orthopaedic Surgery Adult Reconstructive Orthopaedic Surgery; ATTEND Orthopaedic Surgery Adult Reconstructive Orthopaedic Surgery
PROC: 0SRC0J9 Replacement of Right Knee Joint with Synthetic Substitute, Cemented, Open Approach (ICD-10-PCS; principal; 2018-08-27 10:00)
DX: M17.11 Unilateral primary osteoarthritis, right knee (principal); D68.51 Activated protein C resistance; I10 Essential (primary) hypertension; M25.461 Effusion, right knee; M21.161 Varus deformity, not elsewhere classified, right knee; M25.761 Osteophyte, right knee; F32.9 Major depressive disorder, single episode, unspecified; F41.9 Anxiety disorder, unspecified; Z86.718 Personal history of other venous thrombosis and embolism; Z82.49 Family history of ischemic heart disease and other diseases of the circulatory system; Z80.9 Family history of malignant neoplasm, unspecified
CPT/HCPCS: 36415; 80048; 85014; 85018; 85049; A9270-GY; C1776; G8978-GP-CJ; G8979-GP-CI; J0690; J1100; J1170; J1240; J2250; J2270; J2405; J2704; J2795; J3010

== ENCOUNTER 2018-09-01 15:31 | Emergency (ER) | payer MEDICARE, BC ==
--- NOTE | 2018-09-01 16:12 | ED ---
GI/ HPI - HPI Summary HPI Summary: This patient is a 68 year old male presenting to [facility] with a chief complaint of constipation. The patient recently had a total knee arthroplasty 5 days ago on 08/27/[address] Narayanan and has not been able to have a bowel movement since. He also complains of pain in his recently operated knee. The patient has been experiencing gradual onset abdominal pain since 5 hours ago. 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 The patient rates his pain 10/10 in severity. Patient has an Hx of ulcerative colitis but is asymptomatic and is not on any medications for it. Vital signs in the room are BP 149/77, 82 BPM sulfaSALAzine TAB* [Azulfidine TAB*] 1,000 mg PO QID 02/08/13 [History Confirmed 08/17/18] Losartan Potassium [Cozaar] 50 mg PO QAM 10/06/16 [History Confirmed 08/17/18] ALPRAZolam TAB* [Xanax TAB*] 0.5 - 1 mg PO DAILY PRN 01/02/18 [History Confirmed 08/17/18] Acetaminophen TAB* [Tylenol TAB*] 975 mg PO 0600,1400,2200 tab 08/29/18 [Rx] Docusate CAP* [Colace Cap*] 100 mg PO BID PRN #90 cap 08/29/18 [Rx] Morphine TAB Extended Rel(*) [Ms Contin(*)] 30 mg PO Q12H PRN #4 tab.er MDD 2 [Rx] Rivaroxaban TAB(*) [Xarelto 10 mg (*)] 10 mg PO DAILY #30 tab 08/29/18 [Rx] oxyCODONE/Acetamin 5/325 MG* [Percocet 5/325 TAB*] 1 tab PO Q4H PRN #0 tab MDD 10 08/29/18 [Rx] oxyCODONE/Acetamin 5/325 MG* [Percocet 5/325 TAB*] 2 tab PO Q4H PRN #50 tab MDD 10 08/29/18 [Rx] - History of Current Complaint Chief Complaint: EDConstipation Stated Complaint: IMPACTED BOWEL PER EMS Hx Obtained From: Patient Hx From Patient Unobtainable Due To: Extremis Onset/Duration: Started Hours Ago, Started Days Ago, Atraumatic Timing: Lasting Hours, Lasting Days Severity: Severe Current Severity: Severe Pain Intensity: 10 Location of Pain: Umbilical Associated Signs and Symptoms: Positive: Constipation - Additional Pertinent History Primary Care Physician: [id number] - Allergy/Home Medications Allergies/Adverse Reactions: Allergies Allergy/AdvReac Type Severity Reaction Status Date / Time No Known Allergies Allergy Verified 08/27/18 09:04 PMH/Surg Hx/FS Hx/Imm Hx Endocrine/Hematology History: Denies: Hx Diabetes Cardiovascular History: Reports: Hx Hypertension - TAKES MEDICATION Denies: Hx Pacemaker/ICD GI History: Reports: Other GI Disorders - ULCERATIVE COLITIS History: Denies: Hx Renal Disease Musculoskeletal History: Reports: Hx Arthritis, Hx Back Problems, Hx Orthopedic Injury - left rotator cuff Denies: Hx Osteoporosis Sensory History: Reports: Hx Contacts or Glasses Denies: Hx Hearing Aid Opthamlomology History: Reports: Hx Contacts or Glasses Neurological History: Reports: Hx Headaches - WITH THE NECK AND SHOULDER PAIN X 3 MONTHS, Hx Nerve Disease - fibromyalgia, Other Neuro Impairments/Disorders - PAIN CLINIC PATIENT Psychiatric History: Reports: Hx Anxiety - very very anxious about surgery, Hx Depression Denies: Hx Panic Disorder - Cancer History Hx Chemotherapy: No - Surgical History Surgery Procedure, Year, and Place: [place] [place] [facility] [place]. TONSILS A CHILD Hx Anesthesia Reactions: Yes - see note in safety concerns Infectious Disease History: No Infectious Disease History: Denies: Traveled Outside the [place] in Last 30 Days - Family History Known Family History: Positive: Other - Colon cancer - Social History Alcohol Use: Rare Substance Use Type: Reports: None Hx Tobacco Use: Yes - 1988 Smoking Status (MU): Former Smoker Review of Systems Negative: Fever Positive: Abdominal Pain, Other - Constipation All Other Systems Reviewed And Are Negative: Yes Physical Exam - Summary Physical Exam Summary: Appearance: Ill-appearing, severe pain distress, well-nourished Skin: Warm, color reflects adequate perfusion, dry Head: Normal Head/Face inspection, atraumatic Eyes: Conjunctiva clear ENT: Normal inspection Neck: Supple, no nodes, no JVD Respiratory: Lungs clear, normal breath sounds, no respiratory distress Cardio: RRR, No murmur, pulses normal, brisk capillary refill Abdomen: Soft, no rebound, voluntary guarding, no masses, distant bowel sounds. Umbilical hernia, tender, not read. Bowel sounds: Present Musculoskeletal: Strength Intact/ROM intact, no calf tenderness, no edema. Psychological: Normal Neuro: Alert, muscle tone normal, no focal deficit Rectal: Painful exam for patient, soft brown stool, no hemorrhoids, no masses, prostate not palpable due to large amount of stool. 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 Triage Information Reviewed: Yes Vital Signs On Initial Exam: Initial Vitals Temp Pulse Resp BP Pulse Ox 98.6 F 90 25 149/77 99 09/01/18 15:43 09/01/18 15:43 09/01/18 15:43 09/01/18 15:43 09/01/18 15:43 Vital Signs Reviewed: Yes Diagnostics - Vital Signs Vital Signs Temp Pulse Resp BP Pulse Ox 09/01/18 15:43 98.6 F 90 25 149/77 99 - Laboratory Result Diagrams: 09/01/18 16:45 09/01/18 16:45 Lab Statement: Any lab studies that have been ordered have been reviewed, and results considered in the medical decision making process. - Radiology CXR Radiology Interpretation Completed By: Radiologist Summary of Radiographic Findings: No evidence for acute disease. ED Provider has reviewed this report. - EKG 1653 Cardiac Rate: NL - 76 EKG Rhythm: Sinus Rhythm ST Segment: Non-Specific Ectopy: None EKG Comparison: No Significant Change - 08/17/18 Re-Evaluation - Re-Evaluation First Eval Re-Evaluation Time: 17:16 Change: Unchanged Comment: Patient refuses to take oral contrast. Second Eval Re-Evaluation Time: 18:20 Change: Improved Comment: Pt moved his bowels some. Rectal was copious soft brown stool, not impacted. Awaiting CT report. Pt remains anxious about moving his bowels. Will give more Ativan. GIGU Course/Dx - Course Course Of Treatment: This patient is a 68 year old male presenting to [facility] with a chief complaint of constipation s/p TKR 08/27/18. Physical exam was remarkable for an umbilical hernia. Rectal exam was unremarkale. Labs reveal RBC 3.18, Hgb 9.6 L, Hct 29 L Absolute Lymphs 0.4, INR 1.29 H, Glucose 117 H, Lactic Acid 2.5 H, C-Reactive Protein 109.96 H, Total Protein 6.1 L, Amylase 20 L, Lipase <10 L. EKG at 1653 reveals nml AV/IV CT, nml QTc, and nml axis. No acute changes. CXR reveals no evidence of acute disease. Patient will be signed out to Dr. Curiel pending CT Abd/Pel and Disposition. OF note: discharge instructions printed for pt that were for another pt, noted before given to the other patient. No patient information was given to the other patient. - Diagnoses Provider Diagnoses: Constipation, Abdominal pain, Umbilical hernia Discharge - Sign-Out/Discharge Documenting (check all that apply): Sign-Out Patient Signing out patient TO: Matti Curiel - At shift change 1900 09/01/18 Patient Received Moderate/Deep Sedation with Procedure: No - Discharge Plan Referrals: Malika Espinosa MD [Primary Care Provider] - 2 Days Additional Instructions: . - Attestation Statements Document Initiated by Scribe: Yes Documenting Scribe: Uche Yan Provider For Whom Scribe is Documenting (Include Credential): Christa De La Fuente MD Scribe Attestation: Uche Petersen, scribed for Christa De La Fuente MD on 09/01/18 at 1828. Status of Scribe Document: Ready
[2018-09-01] MEDS ORDERED: NS 0.9% 1000 ML** 2,000 ML IV ONE (16:13)
[2018-09-01] MEDS ORDERED: Lorazepam PYXIS KEY PRN ×2 (16:13→18:20)
[2018-09-01] MEDS ORDERED: LORazepam INJ* 2 MG/ML 1 ML VIAL IV PUSH ONE ×2 (16:13→18:20)
[2018-09-01] MEDS ORDERED: Lorazepam PYXIS KEY ONE ×2 (16:21→18:26)
[2018-09-01 17:08] LABS: Activated Partial Thrombo Time 29.5 seconds (26.0-36.3); INR 1.29 (0.82-1.09)
[2018-09-01 17:10] LABS: ABS Lymphocytes 0.4 10^3/ul (1.0-4.8); ABS Monocytes 0.6 10^3/ul (0-0.8); ABS Neutrophils 5.9 10^3/ul (1.5-7.7); Eosinophil % 0.2 %; Hematocrit 29 % (42-52); Hemoglobin 9.6 g/dL (14.0-18.0); Lymphocyte % 5.5 %; Mean Corpuscular HGB Conc 34 g/dL (31-36); Mean Corpuscular Hemoglobin 30 pg (27-31); Mean Corpuscular Volume 90 fL (80-94); Mean Platelet Volume 7.5 fL (7.4-10.4); Platelet Count 276 10^3/uL (150-450); Red Blood Count 3.18 10^6 /uL (4.18-5.48); Red Cell Distribution Width 13 % (10.5-15); White Blood Count 6.9 10^3/uL (3.5-10.8)
[2018-09-01 17:16] LABS: ALT 12 U/L (7-52); AST 19 U/L (13-39); Albumin 3.5 g/dL (3.2-5.2); Albumin/Globulin Ratio 1.3 (1-3); Alkaline Phosphatase 41 U/L (34-104); Amylase 20 U/L (29-103); Anion Gap 9 mmol/L (2-11); BUN/Creatinine Ratio 14.9 (8-20); Blood Urea Nitrogen 10 mg/dL (6-24); C Reactive Protein 109.96 mg/L (<8.01); CO2 Carbon Dioxide 25 mmol/L (22-32); Chloride 102 mmol/L (101-111); Creatine Kinase 201 U/L (10-223); EGFR African American 142.3 (>60); EGFR Non-African American 117.6 (>60); Globulin 2.6 g/dL (2-4); Glucose 117 mg/dL (70-100); Potassium 4.3 mmol/L (3.5-5.0); Sodium 136 mmol/L (135-145); Total Protein 6.1 g/dL (6.4-8.9)
[2018-09-01 17:20] LABS: BNP 70 pg/mL (<=100)
[2018-09-01] MEDS ORDERED: Iohexol 300* (CONTRAST) 10 ML SDV IV ONE (18:23)
[2018-09-01] MEDS ORDERED: PEG 3000 GI LAVAGE* 1 GALLON PO ONE (19:25)
--- NOTE | 2018-09-01 19:32 | ED ---
Progress - Progress Note Progress Note: CT Abd/Pel reveals, per radiologist, IMPRESSION: Severe constipation with possible impaction. Otherwise no acute postoperative process seen. ED physician has reviewed this radiology report. Re-Evaluation - Re-Evaluation First Eval Re-Evaluation Time: 17:16 Change: Unchanged Comment: Patient refuses to take oral contrast. Second Eval Re-Evaluation Time: 18:20 Change: Improved Comment: Pt moved his bowels some. Rectal was copious soft brown stool, not impacted. Awaiting CT report. Pt remains anxious about moving his bowels. Will give more Ativan. Course/Dx - Course Course Of Treatment: This patient is a 68 year old male presenting to [facility] with a chief complaint of constipation s/p TKR 08/27/18. Physical exam was remarkable for an umbilical hernia. Rectal exam was unremarkale. Labs reveal RBC 3.18, Hgb 9.6 L, Hct 29 L Absolute Lymphs 0.4, INR 1.29 H, Glucose 117 H, Lactic Acid 2.5 H, C-Reactive Protein 109.96 H, Total Protein 6.1 L, Amylase 20 L, Lipase <10 L. EKG at 1653 reveals nml AV/IV CT, nml QTc, and nml axis. No acute changes. CXR reveals no evidence of acute disease. Patient will be signed out to Dr. Curiel pending CT Abd/Pel and Disposition. Patient was signed out from Dr. De La Fuente at end of shift, pending CT Abd/Pel. CT Abd/Pel reveals, per radiologist, IMPRESSION: Severe constipation with possible impaction. Otherwise no acute postoperative process seen. ED physician has reviewed this radiology report. Patient will be discharged with a dx of constipation, abdominal pain, umbilical hernia. Patient is agreeable to this plan. - Diagnoses Provider Diagnoses: Constipation, Abdominal pain, Umbilical hernia Discharge - Sign-Out/Discharge Documenting (check all that apply): Patient Departure, Receiving Sign-Out Receiving patient FROM: Christa De La Fuente Patient Received Moderate/Deep Sedation with Procedure: No - Discharge Plan Condition: Good Disposition: HOME Patient Education Materials: Constipation (ED) Referrals: Malika Espinosa MD [Primary Care Provider] - 2 Days Additional Instructions: The golytely should work to get your bowels cleaned out. Make sure to take a stool softener if you need to take the pain pills going forward. - Billing Disposition and Condition Condition: GOOD Disposition: Home - Attestation Statements Document Initiated by Jose: Yes Documenting Scribe: Antwon Reed Provider For Whom Jose is Documenting (Include Credential): Matti Curiel MD Scribzeyad Attestation: IAntwon, scribed for Matti Curiel MD on 09/01/18 at 2002. Scribe Documentation Reviewed: Yes Provider Attestation: The documentation as recorded by the Antwon brennan accurately reflects the service I personally performed and the decisions made by me, Matti Curiel MD Status of Scribe Document: Viewed
[2018-09-01] MEDS ORDERED: Magnesium CITRATE* 300 ML BTL PO ONE (20:17)
[2018-09-01] MEDS ORDERED: Ondansetron ODT TAB* 4 MG SL ONE (20:17)
[2018-09-01 20:19] VITALS: BP 123/75
== END 2018-09-01 20:17 | disposition home or self-care (01) ==
LOC: ED 15:31
DX: K59.00 Constipation, unspecified (principal); R10.9 Unspecified abdominal pain; K42.9 Umbilical hernia without obstruction or gangrene; I10 Essential (primary) hypertension; K51.90 Ulcerative colitis, unspecified, without complications; F41.9 Anxiety disorder, unspecified; Z87.891 Personal history of nicotine dependence
CPT/HCPCS: 36415; 71045; 74177; 80053; 82140; 82150; 82272; 82550; 83605; 83690; 83735; 83880; 85025; 85610; 85730; 86140; 93005; 96361; 96374; 96376; 99285; A9270-GY; J2060; Q9967

== ENCOUNTER 2018-10-23 05:43 | Day surgery (SDC) | payer MEDICARE, BC ==
--- NOTE | 2018-10-16 07:29 | HP ---
PREOPERATIVE HISTORY AND PHYSICAL: DATE OF ADMISSION: 10/23/18 SURGEON: Dr. Brittnee Narayanan.* (DICTATED BY LANCE CALI) PROCEDURE: Right total knee manipulation under anesthesia. CHIEF COMPLAINT: Right knee pain and restricted movement. HISTORY OF PRESENT ILLNESS: Mr. Davalos is a 68-year-old male, who underwent right total knee replacement with Dr. Narayanan on 08/27/18. He has failed to make progress with extension and flexion postoperatively and due to this restriction and continued discomfort, Dr. Narayanan recommended manipulation under anesthesia and the patient would like to proceed. PAST MEDICAL HISTORY: Significant for ulcerative colitis, hypertension, depression, anxiety, factor V Leiden, and a history of DVT in bilateral lower extremities greater than a year ago. PAST SURGICAL HISTORY: Left rotator cuff repair in 2010, right ulnar nerve decompression, and right total knee arthroplasty in July 2018. CURRENT MEDICATIONS: 1. Daily multivitamin. 2. Glucosamine and chondroitin. 3. Probiotics. 4. Vitamin C. 5. Fish oil. 6. Sulfasalazine 500 mg 2 tabs 5 times a day. 7. Losartan potassium 50 mg daily. 8. Tramadol 50 mg as needed. ALLERGIES: No known drug allergies. FAMILY HISTORY: Positive for cancer and coronary artery disease. SOCIAL HISTORY: The patient lives alone, is retired and does not smoke or use recreational drugs and minimal alcohol if any. REVIEW OF SYSTEMS: A complete 14-point review of systems was reviewed with the patient. It is positive for his history of DVT in the bilateral lower extremities, occasional palpitations related to anxiety, nausea and vomiting with anesthesia. He denies history of hepatitis or HIV. PHYSICAL EXAMINATION GENERAL: He is a well-developed, well-nourished male, seated in exam chair, in no acute distress, with appropriate affect. VITAL SIGNS: Height 68 inches, weight 170 pounds. Pulse 79, blood pressure 122 /82, respirations 18, temperature 99.7 today. HEENT: Normocephalic, atraumatic. Hearing and vision are grossly intact. NECK: Supple. Trachea is midline. No palpable lymph nodes. PULMONARY: Lungs are clear to auscultation bilaterally with no adventitious noises. CARDIO: Regular rate and rhythm with a normal S1, S2. No murmurs, rubs, or gallops appreciated. ABDOMEN: Soft, nontender, nondistended with bowel sounds present. NEUROLOGICAL: He is alert and oriented x3. MUSCULOSKELETAL: Right lower extremity: Skin is intact with a well-healed postsurgical incision without signs of infection. No wounds or open abrasions appreciated. There is a moderate effusion of the right knee joint with extension to 15 degrees and flexion to 70 with discomfort. He has 2+ dorsalis pedis pulse with intact sensation distally and brisk capillary refill. IMPRESSION: Right knee contraction, status post right total knee arthroplasty. PLAN: Right total knee manipulation under anesthesia with Dr. Narayanan. The patient's questions were answered and he would like to proceed. He will discontinue use of any nonessential medications 1 week prior to surgical procedure and will follow up postoperatively. LANCE CALI [id number]/[facility] #: [id number] MEY
[~2018-10-23 05:43] MED LIST changes: -Acetaminophen TAB* 325 MG ONE; -Dexamethasone IV* 4 MG/ML 1 ML (4 MG) ONE; -Famotidine TAB* 20 MG ONE; -Gabapentin CAP(*) 300 MG ONE; -Lactated Ringers 1000 ML Bag* 1,000 ML IV SCH; -Lidocaine 1%* 5 ML VIAL ONE; -ROPIVACAINE 5 MG/ML 30 ML BTL (0.5%) ONE; -ceFAZolin 2 GM PREMIX in ORs 2 GM/50 ML BAG IVPB ONE; -celeCOXIB CAP* 100 MG ONE
[2018-10-23] MEDS ORDERED: Lactated Ringers 1000 ML Bag* 1,000 ML IV SCH (06:00)
[2018-10-23] MEDS ORDERED: Famotidine IV* 10 MG/ML 2 ML (20 mg) IV ONE (06:00)
[2018-10-23] MEDS ORDERED: Buffered Lidocaine 1% SYRIN* 1 ML/SYRINGE INTRADERM ONE (06:07)
[2018-10-23] MEDS ORDERED: Famotidine IV* 10 MG/ML 2 ML (20 mg) ONE (06:08)
[2018-10-23] MEDS ORDERED: Succinylcholine* 20 MG/ML 10 ML VIAL ONE (06:55)
[2018-10-23] MEDS ORDERED: Ondansetron INJ* 2 MG/ML VIAL ONE ×2 (06:55→08:38)
[2018-10-23] MEDS ORDERED: Propofol* 10 MG/ML 20 ML BTL ONE (06:55)
[2018-10-23] MEDS ORDERED: Midazolam* 1 MG/ML 5 ML VIAL (5 MG) ONE (06:55)
[2018-10-23] MEDS ORDERED: Ketorolac INJ* 30 MG/ML 1 ML VIAL ONE (06:55)
[2018-10-23] MEDS ORDERED: Lidocaine 2% PF * 5 ML VIAL ONE (06:55)
[2018-10-23] MEDS ORDERED: fentaNYL* 50 MCG/ML 2 ML VIAL (100 MCG VIAL) ONE ×2 (06:55→07:48)
[2018-10-23] MEDS ORDERED: Dexamethasone IV* 4 MG/ML 1 ML (4 MG) ONE (06:55)
[2018-10-23] MEDS ORDERED: Ondansetron INJ* 2 MG/ML VIAL IV PRN (07:13)
[2018-10-23] MEDS ORDERED: oxyCODONE/Acetamin 5/325 MG* TAB PO PRN (07:13)
[2018-10-23] MEDS ORDERED: Naloxone* 0.4 MG/ML 1 ML VIAL IV PRN (07:13)
[2018-10-23] MEDS ORDERED: oxyCODONE/Acetamin 5/325 MG* TAB ONE (07:48)
[2018-10-23] MEDS: fentaNYL* 50 MCG/ML 2 ML VIAL (100 MCG VIAL) IV PRN ×2 (07:50→08:21)
[2018-10-23 09:32] VITALS: BP 114/65
--- NOTE | 2018-10-23 23:51 | OP ---
DATE OF OPERATION: 10/23/18 [facility] DATE OF : 48 ATTENDING SURGEON: Brittnee Narayanan MD. ANESTHESIOLOGIST: Dr. Escudero. ANESTHESIA: General. PRE-OP DIAGNOSIS: Right total knee arthroplasty with pain and stiffness. POST-OP DIAGNOSIS: Right total knee arthroplasty with pain and stiffness. OPERATIVE PROCEDURE: Manipulation under anesthesia with right total knee arthroplasty. COMPLICATIONS: None. ESTIMATED BLOOD LOSS: None. SPECIMEN: None. BRIEF HISTORY/INDICATIONS: Mr. Davalos is a 68-year-old gentleman, now 2 months after 08/23/18 right total knee arthroplasty. The patient had preoperative range of motion of 15 to 85 degrees. Postoperatively, he has had pain control problems, emotional problems, and has been unable to gain motion past 90 degrees. He developed significant arthrofibrosis. Intraoperatively, the patient had excellent flexion, and therefore, we decided together to perform manipulation under anesthesia to try to regain him some additional flexion. Informed consent was obtained from the patient. He understood the risks of surgery included, but were not limited to, bleeding, infection, damage to nearby structures, continued pain, need for further surgery, continued stiffness , stroke, heart attack, blood clot, , and anesthesia complications. The patient wished to proceed. INTRAOPERATIVE FINDINGS: Intraoperatively, the patient had preop range of motion of 5 to 80 degrees. After manipulation, this was 5 to 120 degrees of flexion. He had significant scar adhesions noted. DESCRIPTION OF PROCEDURE: Mr. Davalos was identified in the preanesthesia unit. His right lower extremity was marked as the correct operative side. Informed consent was signed and placed in the chart. The patient was taken to the operating room and placed under anesthesia. A preop time-out was made to correctly identify the patient, side, and site. The right knee was gently flexed and extended. There was palpable and audible breakup of scar tissue. The knee did flex easily to 120 degrees. Intraoperative pictures documented this. Next, a C-arm view AP and lateral of the femur and tibia confirmed no periprosthetic fracture from the manipulation. The patient's anesthesia was reversed without difficulty. He was taken to the PACU in stable condition. Intended weightbearing will be weightbearing as tolerated with aggressive physical therapy. He will have Xarelto for 2 weeks for DVT prophylaxis. [id number]/[facility] #: [id number] [facility]
== END 2018-10-23 09:43 | disposition home or self-care (01) ==
LOC: OR 05:43
PROVIDERS: ATTEND Orthopaedic Surgery Adult Reconstructive Orthopaedic Surgery
DX: T84.82XA Fibrosis due to internal orthopedic prosthetic devices, implants and grafts, initial encounter (principal); Y83.1 Surgical operation with implant of artificial internal device as the cause of abnormal reaction of the patient, or of later complication, without mention of misadventure at the time of the procedure; I10 Essential (primary) hypertension; F41.8 Other specified anxiety disorders; D68.51 Activated protein C resistance; Z86.718 Personal history of other venous thrombosis and embolism
CPT/HCPCS: 76000; A9270-GY; J0330; J1100; J1885; J2250; J2405; J2704; J3010

== ENCOUNTER 2019-03-19 07:30 | Inpatient (IN) | payer MEDICARE, BC ==
--- NOTE | 2019-03-12 16:11 | HP ---
HISTORY AND PHYSICAL: DATE OF ADMISSION/SURGERY: 03/19/19 DATE OF OFFICE VISIT: 03/08/19 PRIMARY CARE PHYSICIAN: Dr. Malika Espinosa. SURGEON: Brittnee Narayanan MD * (DICTATED BY LANCE COREAS) PROCEDURE: Left total knee arthroplasty. CHIEF COMPLAINT: Left knee pain. HISTORY OF PRESENT ILLNESS: Mr. Davalos is a 68-year-old gentleman with continued complaints of left knee pain. He has failed conservative treatment and elected to proceed with a left total knee arthroplasty. PAST MEDICAL HISTORY: History of DVT x2, ulcerative colitis and hypertension. PAST SURGICAL HISTORY: Right total knee arthroplasty and rotator cuff repair. CURRENT MEDICATIONS: 1. Sulfazine 500 mg 2 tabs 5 times a day. 2. Losartan potassium 50 mg a day. 3. Multivitamin. 4. Glucosamine/chondroitin. 5. Probiotic. 6. Vitamin C. 7. Fish oil. 8. Tramadol as needed. ALLERGIES: No known drug allergies. FAMILY HISTORY: Coronary artery disease and cancer. SOCIAL HISTORY: He is a 68-year-old gentleman, lives alone. Does not use drugs. Does not smoke. REVIEW OF SYSTEMS: A complete 14-point review of systems was reviewed with the patient, it was positive for history of a DVT. Denies history of hepatitis, HIV , or anesthesia problems. PHYSICAL EXAMINATION GENERAL: Well developed, well nourished, in no acute distress. VITAL SIGNS: He stands 68 inches tall, weighs 175 pounds, blood pressure is 118 /64, heart rate 64. HEENT: Normocephalic, atraumatic. NECK: Supple. No palpable lymph nodes. PULMONARY: The lungs are clear to auscultation bilaterally. CARDIO: Regular rate and rhythm. Strong S1 and S2. ABDOMEN: Soft, nontender, nondistended. NEUROLOGICAL: He is alert and oriented x3. MUSCULOSKELETAL: Left lower extremity: The skin is intact. There are no open wounds or abrasions. There is a moderate effusion of the left knee joint. He has some tenderness along the medial joint line. There is a severe varus deformity of the knee. Range of motion is 20 to 100 degrees of flexion with patellofemoral crepitus. There is a 2+ dorsalis pedis pulse. He is able to dorsiflex and plantarflex and has intact sensation. ASSESSMENT AND PLAN: Mr. Davalos is a 68-year-old gentleman with severe end- stage osteoarthritis of the left knee. He has failed conservative treatment and elected to proceed with a left total knee arthroplasty. The surgery is scheduled for 03/19/[address] Narayanan discussed the risks and benefits of the surgery at today's visit and all of his questions were answered. He will follow up with Dr. Narayanan 2 weeks after the surgery. No TXA will be used in this patient because of his history of 2 prior deep vein thromboses. LANCE COREAS [id number]/[facility] #: [id number] MEY
[~2019-03-19 07:30] MED LIST changes: +Dexamethasone IV* 4 MG/ML 1 ML (4 MG) IV SLOW PU ONE; +Famotidine IV* 10 MG/ML 2 ML (20 mg) IV ONE; +Gabapentin CAP(*) 300 MG PO ONE; +Lactated Ringers 1000 ML Bag* 1,000 ML IV SCH; +Scopolamine 1.5 mg* PATCH TRANSDERM ONE; +celeCOXIB CAP* 200 MG PO ONE
--- OUTSIDE RECORDS SUMMARY | 2019-03-19 10:13 | XMS REPORT | Continuity of Care Document ---
:1950 External Reference #:[id number] Author Name Brittnee Narayanan M.D. (transmitted by agent of provider Enid Fernandes) Address [address] [facility] [address] [place] [address] Care Team Providers Name Role Phone Malika Espinosa MD - Internal Medicine Care Team Information Hyperbaric Technologist Problems Active Problems Provider Date Ulcerative colitis [...] 10/29/2014 Headache Khoi Hathaway M.D. Onset: 03/18/2014 Social History Type Date Description Comments Sex Unknown Cigarette Use Quit 31 Years Ago Tobacco Use Start: Unknown Never Smoked Cigars Tobacco Use Start: Unknown Never Smoked A Pipe Smoking Status Reviewed: 03/08/19 Never Smoked A Pipe Smokeless Tobacco Never Used Smokeless Tobacco ETOH Use Denies alcohol use Tobacco Use Start: Unknown End: Patient is a former smoker quit 1988 Unknown Exercise Type/Frequency Exercises regularly Allergies, Adverse Reactions, Alerts Active Allergies Reaction Severity Comments Date No Known Drug Allergy 01/21/2010 Medications Active Medications SIG Qnty Indications Ordering Provider Date Compression Stockings 1units Z47.1 Brittnee Narayanan, 09/21/2018 thigh-highs dx: Whitney Misc le edema, s/p right TKA Sulfazine Ec Take Two Tablets 300tabs Linda Ana, 02/25/2011 500mg By Mouth Five M.D., FACP Tablets DR Times A Day Losartan Potassium Take One Tablet 90tabs 401.1 Linda Ana, 02/07/2011 50mg By Mouth Every M.D., FACP Tablets Day Multi-Day Vitamins 1 po qd Unknown Tablets Glucosamine 1 po qd Unknown Chondroitin 1500 Complex 1500Com Capsules Probiotic Acidophilus once a day 30caps Unknown Capsules Vitamin C 1 po qd Unknown 500mg Capsules Fish Oil 1 po qd 90caps Unknown 1200mg Capsules Tramadol HCL ER one by mouth Unknown 200mg daily as needed Tablets ER 24HR pain History Medications Percocet 1 tabs by mouth 14tabs Brittnee Narayanan, 10/23/2018 - 5-325mg every 4 hours as M.D. 11/11/2018 Tablets needed for pain. Xarelto take 1 tab per day 14tabs Brittnee Narayanan, 10/23/2018 - 10mg Tablets x 2 weeks M.D. 11/11/2018 Medications Administered in Office Medication SIG Qnty Indications Ordering Provider Date Triamcinolone (Kenalog) Afsaneh Gutierrez MD 11/13/2018 Injection Triamcinolone (Kenalog) Afsaneh Gutierrez MD 11/13/2018 Injection Triamcinolone (Kenalog) Afsaneh Gutierrez MD 06/22/2018 [...] CPT Code Status Date Vaccine Lot # [id number] Given 03/13/2013 Flu Vaccine Split Virus Preservative Free For [id number] Indiv 3Yr Older 07434 Given 04/05/2012 Zoster (Zostavax) [id number] Q2037 Given 02/21/2012 Fluvirin Im 3Yrs And Older [id number] 99823 Given 01/27/2011 Influenza Virus 3Yrs & Over [id number] 10638 Given 02/25/2010 Influenza Virus 3Yrs & Over Vital Signs Date Vital Result Comment 03/08/2019 1:30pm Height 68 inches 5'8" Weight 175.00 lb Heart Rate 64 /min BP Systolic 118 mmHg BP Diastolic 64 mmHg Respiratory Rate 18 /min Body Temperature 98.3 F Pain Level 0 BMI (Body Mass Index) 26.6 kg/m2 01/14/2019 1:42pm Height 68 inches 5'8" Heart Rate 72 /min BP Systolic 136 mmHg BP Diastolic 74 mmHg Respiratory Rate 18 /min Body Temperature 97.6 F Pain Level 0 Results Description No Information Available Procedures Date Code Description Status 11/13/2018 47208 Inject/Drain Joint/Bursa Major W/O US Completed 10/23/2018 82051 TKR Total Knee Replacement Completed 01/02/2018 [id number] Colonoscopy Completed 09/23/2016 [id number] Colonoscopy Completed 04/01/2016 [id number] Colonoscopy Completed 02/11/2013 03491707 Colonoscopy Completed 02/10/2010 53268047 Colonoscopy Completed 11/08/2006 14451686 Colonoscopy Completed Medical Devices Description No Information Available Encounters Type Date Location Provider Dx Diagnosis Office Visit 01/14/2019 [facility] Brittnee Narayanan, M25.561 Pain in right 1:30p at [place] M.DCale knee Z96.651 Presence of right artificial knee joint Z47.1 Aftercare following joint replacement surgery M25.562 Pain in left knee M25.462 Effusion, left knee M17.12 Unilateral primary osteoarthritis, left knee Assessments Date Code Description Provider 03/08/2019 M25.562 Pain in left knee Brittnee Narayanan M.D. 03/08/2019 M25.462 Effusion, left knee Brittnee Narayanan M.D. 03/08/2019 M17.12 Unilateral primary osteoarthritis, left knee Brittnee Oracio , M.D. 03/08/2019 M25.561 Pain in right knee Brittnee Oracio, M.D. 03/08/2019 Z96.651 Presence of right artificial knee joint Brittnee Oracio, M.D. 01/23/2019 M25.562 Pain in left knee Brittnee Oracio, M.D. 01/23/2019 M25.462 Effusion, left knee Brittnee Oracio, M.D. 01/23/2019 M17.12 Unilateral primary osteoarthritis, left knee Brittnee Oracio , M.D. 01/22/2019 M25.562 Pain in left knee Brittnee Oracio, M.D. 01/22/2019 M25.462 Effusion, left knee Brittnee Oracio, M.D. 01/22/2019 M17.12 Unilateral primary osteoarthritis, left knee Brittnee Oracio , M.D. 01/14/2019 M25.561 Pain in right knee Brittnee Oracio, M.D. 01/14/2019 Z96.651 Presence of right artificial knee joint Brittnee Oracio, M.D. 01/14/2019 Z47.1 Aftercare following joint replacement surgery Brittnee Narayanan M.D. 01/14/2019 M25.562 Pain in left knee Brittnee Oracio, M.D. 01/14/2019 M25.462 Effusion, left knee Brittnee Oracio, M.D. 01/14/2019 M17.12 Unilateral primary osteoarthritis, left knee Jorgito Betancourt.DCale 11/13/2018 M25.512 Pain in left shoulder Afsaneh Gutierrez MD 11/13/2018 M25.511 Pain in right shoulder Afsaneh Gutierrez MD 11/13/2018 M19.012 Primary osteoarthritis, left shoulder Afsaneh Gutierrez MD 11/13/2018 M19.011 Primary osteoarthritis, right shoulder Afsaneh Gutierrez MD 11/12/2018 Z47.1 Aftercare following joint replacement surgery Brittnee Narayanan M.D. 11/12/2018 Z96.651 Presence of right artificial knee joint Jorgito Betancourt.DCale 11/12/2018 M25.561 Pain in right knee Brittnee Narayanan M.D. 11/12/2018 M24.661 Ankylosis, right knee Brittnee Narayanan M.D. 10/29/2018 Z47.1 Aftercare following joint replacement surgery LANCE Lee 10/29/2018 Z96.651 Presence of right artificial knee joint LANCE Lee 10/23/2018 M24.661 Ankylosis, right knee Brittnee Narayanan M.D. 10/23/2018 Z96.651 Presence of right artificial knee joint Brittnee Narayanan M.D. 10/15/2018 Z47.1 Aftercare following joint replacement surgery Brittnee Narayanan M.D. 10/15/2018 Z96.651 Presence of right artificial knee joint Brittnee Narayanan M.D. 09/21/2018 Z47.1 Aftercare following joint replacement surgery Brittnee Narayanan M.D. 09/21/2018 Z96.651 Presence of right artificial knee joint Brittnee Narayanan M.D. 09/21/2018 M25.561 Pain in right knee Brittnee Narayanan M.D. 09/21/2018 M25.461 Effusion, right knee Brittnee Narayanan M.D. 09/10/2018 Z47.1 Aftercare following joint replacement surgery Brittnee Narayanan M.D. 09/10/2018 Z96.651 Presence of right artificial knee joint Brittnee Narayanan M.D. Plan of Treatment Future Appointment(s):04/01/2019 2:45 pm - Brittnee Narayanan M.D. at [facility] at Bzxyau3103/19/2019 11:30 am - Braulio Patel PA-C at [facility] at Axsivr7003/19/2019 11:30 am - LANCE Lee at [facility] at Fkimab9303/19/2019 11:30 am - Brittnee Narayanan M.D. at [facility] at Vejfjz8203/08/2019 - Brittnee Narayanan M.D.M25.562 Pain in left kneeFollow up:Follow up: 2 weeks after qgbipdsJ16.462 Effusion, left kneeM17.12 Unilateral primary osteoarthritis, left kneeM25.561 Pain in right kneeZ96.651 Presence of right artificial knee joint Functional Status Description No Information Available Mental Status Description No Information Available Referrals Description No Information Available
--- OUTSIDE RECORDS SUMMARY | 2019-03-19 10:13 | XMS REPORT | Continuity of Care Document ---
:1950 External Reference #:[id number] Author Name Brittnee Narayanan M.D. (transmitted by agent of provider Aylin Vasquez) Address [address] [facility] [place] [address] Care Team Providers Name Role Phone Malika Espinosa MD - Internal Medicine Care Team Information Actuary [phone] Problems Active Problems Provider Date Ulcerative colitis [...] CPT Code Status Date Vaccine Lot # [id number] Given 03/13/2013 Flu Vaccine Split Virus Preservative Free For [id number] Indiv 3Yr Older 66668 Given 04/05/2012 Zoster (Zostavax) [id number] Q2037 Given 02/21/2012 Fluvirin Im 3Yrs And Older [id number] 33194 Given 01/27/2011 Influenza Virus 3Yrs & Over [id number] 17751 Given 02/25/2010 Influenza Virus 3Yrs & Over [...] Temperature 97.6 F Pain Level 0 Results Test Acquired Date Facility Test Result H/L Range Note CBC Auto 03/08/2019 [facility] White Blood 6.0 10^3/uL Normal 3.5-10.[address] [place] [address] [phone] Red Blood Count 4.39 10^6/uL Normal 4.18-5.48 Hemoglobin 13.2 g/dL Low 14.0-18.0 Hematocrit 40 % Low 42-52 Mean Corpuscular Volume 90 fL Normal 80-94 Mean Corpuscular Hemoglobin 30 pg Normal 27-31 Mean Corpuscular HGB Conc 34 g/dL Normal 31-36 Red Cell Distribution Width 13 % Normal 10-15 Platelet Count 239 10^3/uL Normal 150-450 Mean Platelet Volume 7.5 fL Normal 7.4-10.4 Abs Neutrophils 4.3 10^3/uL Normal 1.5-7.7 Abs Lymphocytes 1.0 10^3/uL Normal 1.0-4.8 Abs Monocytes 0.6 10^3/uL Normal 0-0.8 Abs Eosinophils 0.1 10^3/uL Normal 0-0.6 Abs Basophils 0.0 10^3/uL Normal 0-0.2 Abs Nucleated RBC 0.0 10^3/uL Granulocyte % 70.9 % Lymphocyte % 16.8 % Monocyte % 10.2 % Eosinophil % 1.3 % Basophil % 0.8 % Nucleated Red Blood Cells % 0.0 Inr/Protime 03/08/2019 [facility] Inr 1.06 Normal 0.82-1.[address] [place] [address] [phone] Laboratory test 03/08/2019 [facility] Partial 32.8 Normal 26.0 -38.[address] [place] [address] Time PTT [phone] Comp Metabolic 03/08/2019 [facility] Sodium 139 mmol/L Normal 135-145 Panel [address] [place] [address] [phone] Potassium 4.4 mmol/L Normal 3.5-5.0 Chloride 105 mmol/L Normal 101-111 Co2 Carbon Dioxide 29 mmol/L Normal 22-32 Anion Gap 5 mmol/L Normal 2-11 Glucose 92 mg/dL Normal 70-100 Blood Urea Nitrogen 21 mg/dL Normal 6-24 Creatinine 0.81 mg/dL Normal 0.67-1.17 BUN/Creatinine Ratio 25.9 High 8-20 Calcium 9.5 mg/dL Normal 8.6-10.3 Total Protein 6.3 g/dL Low 6.4-8.9 Albumin 4.1 g/dL Normal 3.2-5.2 Globulin 2.2 g/dL Normal 2-4 Albumin/Globulin Ratio 1.9 Normal 1-3 Total Bilirubin 0.50 mg/dL Normal 0.2-1.0 Alkaline Phosphatase 56 U/L Normal 34-104 Alt 15 U/L Normal 7-52 Ast 21 U/L Normal 13-39 Egfr Non- 94.5 >60 Egfr 114.3 >60 2 Urinalysis Profile 03/08/2019 [facility] Urine Color Yellow [address] [place] [address] [phone] Urine Appearance Clear Urine Specific [place] 1.015 Normal 1.010-1.030 Urine pH 5.0 Normal 5-9 Urine Urobilinogen Negative Negative Urine Ketones Negative Negative Urine Protein Negative Negative Urine Leukocytes Negative Negative Urine Blood Negative Negative Urine Nitrite Negative Negative Urine Bilirubin Negative Negative Urine Glucose Negative Negative Type & Screen 03/08/2019 [facility] Patient Blood Type A Positive [address] [place] [address] [phone] Antibody Screen NEGATIVE Urine Culture And 03/08/2019 [facility] Urine Culture SEE RESULT [address] [place] [address] [phone] Standard intensity warfarin therapeutic range: 2.0-3.0 High intensity warfarin therapeutic range: 2.5-3.5 2 Because ethnic data is not always [...] [address]: Brittnee Narayanan MD Acct: [id number] Unit: [id number] AGE: 68 Location: [facility] Re03/08/19 SEX: M Status: REG REF SPEC: [id number] GUILHERME: 03/08/19 [facility] DR: Brittnee Narayanan MD REQ: [id number] RECD: 03/08/19 STATUS:COMP _ SOURCE: URINE SPDESC: ORDERED: Urine Culture QUERIES: Urine Source: Clean Catch Procedure Result Reported Site Urine Culture Final 03/09/19- 1628 ML No Growth (<1,000 CFU/mL) * ML - Main Lab . END OF REPORT DEPARTMENT OF PATHOLOGY, [address] [place] [address] Noble Izquierdo M.D. Director [facility] # [id number] Procedures Date Code Description Status 11/13/2018 70344 Inject/Drain Joint/Bursa Major W/O US Completed 10/23/2018 08061 TKR Total Knee Replacement Completed 01/02/2018 34630261 Colonoscopy Completed 09/23/2016 61074323 Colonoscopy Completed 04/01/2016 [id number] Colonoscopy Completed 02/11/2013 57725552 Colonoscopy Completed 02/10/2010 81311654 Colonoscopy Completed 11/08/2006 78801638 Colonoscopy Completed Medical Devices Description No Information Available Encounters Type Date Location Provider Dx Diagnosis Office Visit 01/14/2019 [facility] Brittnee Narayanan, M25.561 Pain in right 1:30p at [place] M.D. knee Z96.651 Presence of right artificial knee joint Z47.1 Aftercare following joint replacement surgery M25.562 Pain in left knee M25.462 Effusion, left knee M17.12 Unilateral primary osteoarthritis, left knee Assessments Date Code Description Provider 03/08/2019 M25.562 Pain in left knee Brittnee Oracio, M.DCale 03/08/2019 M25.462 Effusion, left knee Brittneejamison Narayanan M.DCale 03/08/2019 M17.12 Unilateral primary osteoarthritis, left knee Brittnee Oracio M.DCale 03/08/2019 M25.561 Pain in right knee Brittnee Oracio, M.D. 03/08/2019 Z96.651 Presence of right artificial knee joint Brittnee Narayanan M.DCale 01/23/2019 M25.562 Pain in left knee Brittnee Oracio, M.D. 01/23/2019 M25.462 Effusion, left knee Brittnee Oracio M.D. 01/23/2019 M17.12 Unilateral primary osteoarthritis, left knee Brittnee Oracio M.DCale 01/22/2019 M25.562 Pain in left knee Brittnee Oracio, M.D. 01/22/2019 M25.462 Effusion, left knee Brittnee Oracio, M.D. 01/22/2019 M17.12 Unilateral primary osteoarthritis, left knee Brittnee Oracio M.DCale 01/14/2019 M25.561 Pain in right knee Brittnee Oracio, M.D. 01/14/2019 Z96.651 Presence of right artificial knee joint Brittnee Oracio M.DCale 01/14/2019 Z47.1 Aftercare following joint replacement surgery Brittnee Oracio , M.D. 01/14/2019 M25.562 Pain in left knee Brittnee Narayanan M.D. 01/14/2019 M25.462 Effusion, left knee Brittnee Narayanan M.D. 01/14/2019 M17.12 Unilateral primary osteoarthritis, left knee Brittnee Narayanan M.D. 11/13/2018 M25.512 Pain in left shoulder Afsaneh Gutierrez MD 11/13/2018 M25.511 Pain in right shoulder Afsaneh Gutierrez MD 11/13/2018 M19.012 Primary osteoarthritis, left shoulder Afsaneh Gutierrez MD 11/13/2018 M19.011 Primary osteoarthritis, right shoulder Afsaneh Gutierrez MD 11/12/2018 Z47.1 Aftercare following joint replacement surgery Brittnee Narayanan M.D. 11/12/2018 Z96.651 Presence of right artificial knee joint Brittnee Narayanan M.D. 11/12/2018 M25.561 Pain in right knee Brittnee [...] M.D. 09/21/2018 M25.561 Pain in right knee Britntee Narayanan M.D. 09/21/2018 M25.461 Effusion, right knee Brittnee Oracio, M.D. Plan of Treatment Future Appointment(s):04/01/2019 2:45 pm - Brittnee Narayanan M.D. at [facility] at Ncgrad9903/19/2019 12:00 pm - Braulio Patel PA-C at [facility] at Ndecxn1903/19/2019 12:00 pm - LANCE Lee at [facility] at Mckueu4703/19/2019 12:00 pm - Brittnee Narayanan M.D. at [facility] at Mpkmtp0803/08/2019 - Brittnee Narayanan M.D.M25.562 Pain in left kneeFollow up:Follow up: 2 weeks after sywxtgsD56.462 Effusion, left kneeM17.12 Unilateral primary osteoarthritis, left kneeM25.561 Pain in right kneeZ96.651 Presence of right artificial knee joint Functional Status Description No Information Available Mental Status Description No Information Available Referrals Description No Information Available
[2019-03-19] MEDS ORDERED: celeCOXIB CAP* 200 MG ONE (10:33)
[2019-03-19] MEDS ORDERED: Dexamethasone IV* 4 MG/ML 1 ML (4 MG) ONE (10:33)
[2019-03-19] MEDS ORDERED: ceFAZolin 2 GM in NS PREMIX(*) 2 GM/100 ML BAG IVPB ONE (10:33)
[2019-03-19] MEDS ORDERED: Gabapentin CAP(*) 300 MG ONE (10:33)
[2019-03-19] MEDS ORDERED: Scopolamine 1.5 mg* PATCH ONE (10:33)
[2019-03-19] MEDS ORDERED: Famotidine IV* 10 MG/ML 2 ML (20 mg) ONE (10:33)
[2019-03-19] MEDS ORDERED: ROPIVACAINE 5 MG/ML 30 ML BTL (0.5%) ONE ×2 (11:59→12:26)
[2019-03-19] MEDS ORDERED: fentaNYL* 50 MCG/ML 2 ML VIAL (100 MCG VIAL) ONE ×2 (12:01→14:10)
[2019-03-19] MEDS ORDERED: Midazolam* 1 MG/ML 5 ML VIAL (5 MG) ONE (12:01)
[2019-03-19] MEDS ORDERED: oxyCODONE/Acetamin 5/325 MG* TAB PO PRN (12:14)
[2019-03-19] MEDS ORDERED: fentaNYL* 50 MCG/ML 2 ML VIAL (100 MCG VIAL) IV PRN (12:14)
[2019-03-19] MEDS ORDERED: Morphine 4 MG/ML VIAL (1 ml) 4 MG/ML VIAL IV PRN (12:14)
[2019-03-19] MEDS ORDERED: HYDROcodone/ACETAMIN 5-325 MG* 1 TAB PO PRN (12:14)
[2019-03-19] MEDS ORDERED: PROCHLORPERAZINE INJ 5 MG/ML 2 ML VIAL IV PRN (12:14)
[2019-03-19] MEDS ORDERED: Naloxone* 0.4 MG/ML 1 ML VIAL IV PRN (12:14)
[2019-03-19] MEDS ORDERED: Propofol* 500 MG/50 ML BTL ONE (13:20)
[2019-03-19] MEDS ORDERED: Lidocaine 2% PF * 5 ML VIAL ONE (13:20)
[2019-03-19] MEDS ORDERED: EPHEDrine (Pressors)* 50 MG/ML VIAL ONE (13:35)
[2019-03-19] MEDS ORDERED: Propofol* 10 MG/ML 20 ML BTL ONE (15:05)
[2019-03-19] MEDS ORDERED: Ondansetron TAB* 4 MG PO PRN (16:05)
[2019-03-19] MEDS ORDERED: diPHENhydraMINE PO* 25 MG PO PRN (16:05)
[2019-03-19] MEDS ORDERED: Polyethylene Glycol 3350* 17 GM PACKET PO PRN (16:05)
[2019-03-19] MEDS ORDERED: traMADol TAB* 50 MG PO PRN (16:05)
[2019-03-19] MEDS ORDERED: Ondansetron ODT TAB* 4 MG PO PRN (16:05)
[2019-03-19] MEDS ORDERED: Magnesium Hydroxide LIQ* 30 ML UDC PO PRN (16:05)
[2019-03-19] MEDS ORDERED: diPHENhydraMINE IV* 50 MG/ML 1 ml VIAL (BENADRYL) IV PRN (16:05)
[2019-03-19] MEDS ORDERED: Ondansetron INJ* 2 MG/ML VIAL IV PRN (16:05)
[2019-03-19] MEDS ORDERED: oxyCODONE/Acetamin 5/325 MG* TAB ONE (17:59)
[2019-03-19] MEDS: oxyCODONE/Acetamin 5/325 MG* TAB PO PRN (18:02)
[2019-03-19] MEDS: Lactated Ringers 1000 ML Bag* 1,000 ML IV SCH (18:02)
--- NOTE | 2019-03-19 19:54 | OP ---
Operative Report - Blank - Operative Report Date of Operation: 03/19/19 Note: ROSEMARY NEWBY 1950 Date of Surgery: 03/19/19 Brittnee Narayanan MD Machine Maintenance Repairer: Jak LUCAS did help throughout the procedure with preparation of the knee, wound retraction, manipulation of the knee, and wound closure. Anesthesiologist: Dr. Warner Anesthesia Type: Spinal Preoperative Diagnosis: Left severe degenerative osteoarthritis of the knee Postoperative Diagnosis: As above Procedure Performed: Left Total Knee Arthroplasty Tourniquet time: 78 minutes Complications: None Specimen: Bone and cartilage from the left knee joint sent to pathology. Hardware Used: Cemented Metz [employer] Nephew total knee hardware was used - For the femur a size 7 left legion posterior stabilized femoral component, for the tibia a size 6 left marilyn II tibial baseplate, for the insert a size 9 mm 5-6 posterior stabilized articular polyethylene insert, and for the patella a size 35 3-peg all poly patella. The [employer] robotic navigation system was used. Brief History/Indication: ROSEMARY NEWBY was known in clinic and had a history of severe left knee pain and swelling. He failed conservative treatment with anti-inflammatories, pain pills, intra-articular injections and physical therapy. He elected to undergo left total knee arthroplasty due to continued pain and decreased quality of life. Radiographs showed severe end stage osteoarthritis of the knee with bone on bone contact. Informed consent was obtained from the patient. He understood the risks of surgery included but were not limited to: bleeding, infection, damage to nearby structures, intraoperative fracture, nerve palsy, failure of the hardware, early loosening, knee stiffness or loss of motion, anesthesia complications, stroke, heart attack , blood clot and . He understood the additional pin site risks with the Navio. He wished to proceed. Intra-Operative Findings: Intraoperatively the patient was noted to have severe loss of cartilage in all 3 compartments of the knee. He had 15 degree varus deformity and preop range of motion 20-110 degrees of flexion. Description of the Procedure: ROSEMARY NEWBY was identified in the preanesthesia unit. His left knee was marked as the correct operative side. Informed consent was signed and placed in the chart. The patient was taken to the operating room and placed under anesthesia without complication. A pagan catheter was placed. A tourniquet was placed on the left thigh. The left lower extremity was prepped and draped in the usual sterile fashion. Preoperative time-out was made to correctly identify the patient, side and site. Appropriate intraoperative antibiotics were given within one hour of incision. Tourniquet was inflated. A midline incision was made and carried sharply down to the extensor mechanism. A new 10 blade was used to make a standard medial parapatellar arthrotomy. The patella was subluxed laterally. Electrocautery was used to dissect soft tissue off the superomedial tibia to the midsagittal plane. The knee was flexed up. The anterior horn of the lateral meniscus and the ACL/PCL were sharply incised. The femoral and tibial checkpoint screws were placed. The two femoral pins with an array and two tibial pins with an array were placed. The Fruitfulll system was used to map the anatomy of the femur and tibia. The proper hardware size and placement was determined using the Navio navigation system. The [employer] robotic viviane was used to make the distal femoral cut. The size 7 multi-cutting jig was pinned on the distal femur. The oscillating saw was used to make the appropriate 4 chamfer cuts. Next the PCL was completely released. The extramedullary tibial cutting guide was pinned on the proximal tibia using the Navio angle cutting guide. The oscillating saw was used to make the proximal tibial cut perpendicular to the mechanical axis of the tibia. The bone was carefully removed. The knee was brought out into full extension. The spacer block was placed and had excellent fit with the knee in full extension. The medial and lateral ligaments were well balanced. The flexion and extension gaps were well balanced. The knee was flexed up. Lamina scientist/engineer was placed both medially and laterally. Any remaining meniscus was removed with electrocautery. Curved osteotome was used to remove any posterior osteophytes. The tibial tray and drop makenna were placed and confirmed a satisfactory tibial cut. The size 7 left femoral trial was impacted onto the distal femur. This trial had excellent fit and stability. The box for the posterior stabilized implant was prepared using a box cut osteotome and a reamer. Next a tibial tray trial and 9 mm insert trial was placed. The knee was taken through a range of motion and had full extension to 130 degrees of flexion. Patellofemoral tracking was satisfactory. The final Navio checkpoints were entered into the computer. The pins and screws were carefully removed. The patella was inverted and sized to a size 35. Three peg holes were drilled through the size 35 drill guide. The trial patella was placed and the knee was taken through a range of motion. There was satisfactory patellofemoral tracking. All trials were removed. The tibia was subluxed anteriorly and sized to a size 6. The proximal tibial was prepared with a size 6 keel punch. All bony cut surfaces were irrigated with sterile saline and dried. Final implants were cemented into place starting with the tibia, followed by the femur, and last the patella. A 9 mm insert trial was placed and the knee was brought into full extension. Tourniquet was turned down and the knee was copiously irrigated with sterile saline. Electrocautery was used to obtain meticulous hemostasis. Once the cement had fully cured, the insert trial was removed. Any excess cement was removed from around the hardware and capsule. Final insert chosen was a 9 mm posterior stabilized Marilyn II articular insert size 5-6. Stability of the insert was checked and noted to be stable. The extensor mechanism was closed using number 1 vicryls. The rest of the incision was closed in a layered fashion using 0 and 2-0 vicryls. The skin was closed using 3-0 nylon suture. Sterile xeroform, 4x4s and webril were used to cover the incision. Seamus wrap and cold pack were used to cover the dressings. The patients anesthesia was reversed without difficulty. He was taken to the PACU in stable condition. Intended weight-bearing will be as tolerated.
[2019-03-19] MEDS: Pregabalin CAP(*) 50 MG PO SCH (21:28)
[2019-03-19] MEDS: Docusate CAP* 100 MG PO SCH (21:29)
[2019-03-19] MEDS: oxyCODONE TAB* 5 MG TAB PO PRN (21:29)
[2019-03-19] MEDS: Magnesium Hydroxide LIQ* 30 ML UDC PO SCH (21:32)
[2019-03-19] MEDS: sulfaSALAzine TAB* 500 MG PO SCH (21:32)
[2019-03-19] MEDS: ceFAZolin 1 GM ADVAN(*) 1 GM in NS 0.9% 50 ML* 50 ML IVPB SCH (21:36)
[2019-03-19] MEDS: Acetaminophen TAB* 325 MG PO SCH (22:38)
[2019-03-19] MEDS: Cyclobenzaprine TAB* 10 MG PO PRN (22:39)
[2019-03-20] MEDS: oxyCODONE/Acetamin 5/325 MG* TAB PO PRN ×4 (00:33→20:11)
[2019-03-20] MEDS: Morphine INJ* 2 MG/ML 1 ML SYRINGE (TWO MG - NEW SYRINGE VERSION) IV PRN ×3 (01:04→14:30)
[2019-03-20] MEDS: oxyCODONE TAB* 5 MG TAB PO PRN ×4 (01:48→17:15)
[2019-03-20] MEDS ORDERED: Ketorolac INJ* 15 MG/ML 1 ML VIAL ONE (03:31)
[2019-03-20] MEDS ORDERED: Ketorolac INJ* 15 MG/ML 1 ML VIAL IV PUSH ONE (03:35)
[2019-03-20] MEDS: Lactated Ringers 1000 ML Bag* 1,000 ML IV SCH (03:39)
[2019-03-20] MEDS: Cyclobenzaprine TAB* 10 MG PO PRN ×3 (05:05→20:13)
[2019-03-20] MEDS: ceFAZolin 1 GM ADVAN(*) 1 GM in NS 0.9% 50 ML* 50 ML IVPB SCH ×2 (05:06→13:01)
[2019-03-20] MEDS: Acetaminophen TAB* 325 MG PO SCH ×3 (05:53→20:18)
[2019-03-20 06:01] LABS: Hematocrit 32 % (42-52); Hemoglobin 10.5 g/dL (14.0-18.0); Mean Platelet Volume 7.5 fL (7.4-10.4); Platelet Count 208 10^3/uL (150-450)
[2019-03-20 06:39] LABS: BUN/Creatinine Ratio 17.6 (8-20); Calcium 8.1 mg/dL (8.6-10.3); EGFR Non-African American 82.6 (>60); Potassium 3.6 mmol/L (3.5-5.0)
[2019-03-20] MEDS ORDERED: NS 0.9% 500 ML* 500 ML IV ONE (08:28)
--- NOTE | 2019-03-20 09:16 | PN ---
Progress Note - Progress Note Date of Service: 03/20/19 SOAP: Subjective: []Pt seen and examined at bedside. Left knee is painful with burning sensation, none severe. Denies CP, SOB, dizziness, nausea. Low BP overnight and received NS 500 ml bolus this morning. Objective: []Gen: NAD, appears well LLE: Left knee dressing CDI, thigh is soft, DF/PF intact, DP2+, sensation intact to light touch distally. Assessment: []POD [address] Narayanan Plan: []WBAT PT/OT eliquis 2.5 mg po BID x 30 days post op aggressive bowel meds as patient had impacted bowel after RTK Vital Signs Temp 98.9 F 03/20/19 07:54 Pulse 61 03/20/19 07:54 Resp 16 03/20/19 07:54 BP 98/52 03/20/19 08:02 Pulse Ox 96 03/20/19 07:54 Intake & Output 03/19/19 03/20/19 03/20/19 18:59 06:59 18:59 Intake Total 100 1150 480 Output Total 550 Balance 100 600 480 Weight 182 lb Intake: IV Fluids 100 480 LR 480 NS 100ML, Cefazolin 2G 100 Oral 1150 Output: Obrien 550 Laboratory Last Values Hgb 10.5 g/dL (14.0-18.0) L 03/20/19 05:29 Hct 32 % (42-52) L 03/20/19 05:29 Plt Count 208 10^3/uL (150-450) 03/20/19 05:29 MPV 7.5 fL (7.4-10.4) 03/20/19 05:29 Sodium 136 mmol/L (135-145) 03/20/19 05:29 Potassium 3.6 mmol/L (3.5-5.0) 03/20/19 05:29 Chloride 104 mmol/L (101-111) 03/20/19 05:29 Carbon Dioxide 28 mmol/L (22-32) 03/20/19 05:29 Anion Gap 4 mmol/L (2-11) 03/20/19 05:29 BUN 16 mg/dL (6-24) 03/20/19 05:29 Creatinine 0.91 mg/dL (0.67-1.17) 03/20/19 05:29 Est GFR ( Amer) 100.0 (>60) 03/20/19 05:29 Est GFR (Non-Af Amer) 82.6 (>60) 03/20/19 05:29 BUN/Creatinine Ratio 17.6 (8-20) 03/20/19 05:29 Glucose 137 mg/dL (70-100) H 03/20/19 05:29 Calcium 8.1 mg/dL (8.6-10.3) L 03/20/19 05:29
[2019-03-20] MEDS ORDERED: Magnesium Hydroxide LIQ* 30 ML UDC PO PRN (09:17)
[2019-03-20] MEDS ORDERED: Polyethylene Glycol 3350* 17 GM PACKET PO PRN (09:17)
[2019-03-20] MEDS ORDERED: Senna TAB 8.6 mg* TAB PO PRN (09:17)
[2019-03-20] MEDS: Vitamin THERAPEUTIC TAB PO SCH (09:56)
[2019-03-20] MEDS: Docusate CAP* 100 MG PO SCH ×3 (09:56→20:17)
[2019-03-20] MEDS: Rivaroxaban TAB(*) 10 MG PO SCH (09:56)
[2019-03-20] MEDS: sulfaSALAzine TAB* 500 MG PO SCH ×4 (09:56→20:12)
[2019-03-20] MEDS: Magnesium Hydroxide LIQ* 30 ML UDC PO SCH ×3 (09:57→20:18)
[2019-03-20] MEDS: Losartan TAB* 25 MG PO SCH (10:10)
[2019-03-20] MEDS: Pregabalin CAP(*) 50 MG PO SCH (20:13)
[2019-03-21] MEDS: oxyCODONE/Acetamin 5/325 MG* TAB PO PRN ×3 (01:34→11:42)
[2019-03-21] MEDS: Cyclobenzaprine TAB* 10 MG PO PRN (03:31)
[2019-03-21] MEDS: Morphine INJ* 2 MG/ML 1 ML SYRINGE (TWO MG - NEW SYRINGE VERSION) IV PRN (03:32)
[2019-03-21 05:25] LABS: Hematocrit 30 % (42-52); Hemoglobin 10.4 g/dL (14.0-18.0); Mean Platelet Volume 7.7 fL (7.4-10.4); Platelet Count 200 10^3/uL (150-450)
[2019-03-21] MEDS: Acetaminophen TAB* 325 MG PO SCH ×2 (06:32→12:22)
[2019-03-21] MEDS: Magnesium Hydroxide LIQ* 30 ML UDC PO SCH (07:19)
[2019-03-21] MEDS: Losartan TAB* 25 MG PO SCH (08:39)
[2019-03-21] MEDS: sulfaSALAzine TAB* 500 MG PO SCH ×2 (08:40→13:27)
[2019-03-21] MEDS: Docusate CAP* 100 MG PO SCH (08:41)
[2019-03-21] MEDS: Rivaroxaban TAB(*) 10 MG PO SCH (08:45)
--- NOTE | 2019-03-21 09:10 | DS ---
Orthopedic Discharge Summary - Discharge Summary Date of Admission:03/19/19 Date of Discharge: 03/21/19 Date of Surgery: 03/19/19 Attending Orthopedic Provider: Dr Narayanan Pre-operative Diagnosis: Left knee osteoarthritis Operative Procedure: left total knee replacement Disposition of Patient: home with outpt services Condition of Patient: stable History: ROSEMARY NEWBY is a 68 year old M with years of increasingly severe left knee pain. Patient has failed conservative management and has elected to undergo a left total knee replacement Hospital Course: ROSEMARY was admitted to [facility] on 03/19/19. Patient underwent a left total knee replacement without complication followed by a brief recovery in PACU and transfer to the Short Stay Surgical Unit in stable condition. Our hospitalist service, physical therapy and occupational therapy also participated in this patients care. Post-op day 1: patient was alert and in no acute distress. Dressing was clean, dry and intact. Operative extremity dorsiflexion and plantarflexion intact, sensation intact to light touch distally, DP2+. Post-op day two: Denies CP, SOB, dizziness, nausea. Had BM this morning. Pt appears well, NAD. dressing was changed, incision was clean , dry and intact. Patient was deemed to be medically and orthopedically stable for discharge. Physical therapy goals were met. Instructed patient that he is not to mobilize without his walker until PT clears him to do so. He must attend outpatient PT right away. If he has issues with constipation contact ortho or PCP as soon as constipation begins. Home Medications Medication Instructions Recorded Confirmed Type sulfaSALAzine TAB* [Azulfidine 1,000 mg PO QID 02/08/13 03/19/19 History TAB*] Losartan Potassium [Cozaar] 50 mg PO QAM 10/06/16 03/19/19 History Tramadol HCl [Tramadol HCl ER] 200 mg PO QAM 10/17/18 03/19/19 History Ascorbic Acid TAB* [Vitamin C 500 mg PO QAM 02/22/19 03/19/19 History TAB*] Pregabalin CAP(*) [Lyrica CAP(*)] 50 mg PO BEDTIME 02/22/19 03/19/19 History Glucosam/Chondr/Collagn/Hyalur 1 cap PO QAM 02/27/19 03/08/19 History [Glucosamine & Chondroitin Cap] [place]-3 Fatty Acids/Fish Oil [Fish 1 each PO QAM 02/27/19 03/19/19 History Oil 1,000 mg Softgel] Multivit-Min/FA/Lycopen/Lutein 1 each PO QAM 03/08/19 03/19/19 History [Centrum Silver Men Tablet] Colace 03/19/19 History Xanax TAB* 5 mg PO PRN 03/19/19 History Acetaminophen TAB* [Tylenol TAB*] 975 mg PO Q8HR tab 03/21/19 Rx Docusate CAP* [Colace Cap*] 100 mg PO BID PRN #90 cap 03/21/19 Rx Rivaroxaban TAB(*) [Xarelto 10 mg 10 mg PO DAILY #30 tab 03/21/19 Rx (*)] oxyCODONE/Acetamin 5/325 MG* 2 tab PO Q4H PRN #70 tab MDD 10 03/21/19 Rx [Percocet 5/325 TAB*] Discharge Instructions following Orthopedic Surgery: Activity: * Weight Bearing as tolerated with walker * Continue physical therapy and occupational therapy exercises as shown * Start outpatient physical therapy right away Wound care: * OK to shower on post-op day 3, no bathing, swimming, or submerging wound. * Use gentle soap, pat dry. Cover with gauze, JT wrap or tape. Call Orthopedic office for: * Increased drainage * Redness * Increased pain * Fever Go to ER with shortness of breath or chest pain. Diet: * Regular diet * Increase fluids and fiber to prevent constipation. * Continue to use stool softeners, call office if no bowel motion within 48 hours. Medications See Home Medication List in your packet for medications that you should take after discharge. DVT Prophylaxis: Xarelto Dosin mg daily x 30 days post op. increases bleeding tendency Pain Control: Percocet Dosin/325 mg 1-2 tabs by mouth every 4-6 hours as needed for pain. Maximum of 10 tabs per day. Hold for sedation and wean off as soon as pain allows. Please note that Percocet contains Tylenol (acetaminophen). Maximum daily dose of Tylenol is 4000 mg from all sources. Attempt to control pain without using home dose of long acting tramadol. If pain is intolerable, okay to take both percocet and home dose of long acting tramadol if needed but wean off as soon as pain allows and to use either tramadol or percocet. If on both, be very cautious to avoid oversedation and do not take additional tabs if sedation occurs. Antibiotics are required prior to any dental work. FOLLOW UP: Follow up with [[facility]] Within 10-14 days, call for appointment Please call our office with any questions or concerns ([phone]) [facility]
[2019-03-21] MEDS: Vitamin THERAPEUTIC TAB PO SCH (10:45)
[2019-03-21 15:44] VITALS: BP 114/52
[2019-03-21] MEDS ORDERED: Bisacodyl SUPP* 10 MG SUPP PR PRN (16:05)
[2019-03-22] MEDS ORDERED: Scopolamine PATCH Remove* 1 NOTE MISC PATCH OFF ONE (06:00)
== END 2019-03-21 16:20 | disposition home or self-care (01) | DRG 470 ==
LOC: AA 10:08 → SSU 16:05
PROVIDERS: ADMIT Orthopaedic Surgery Adult Reconstructive Orthopaedic Surgery; ATTEND Orthopaedic Surgery Adult Reconstructive Orthopaedic Surgery
PROC: 8E0Y0CZ Robotic Assisted Procedure of Lower Extremity, Open Approach (ICD-10-PCS; 2019-03-19)
PROC: 0SRD0J9 Replacement of Left Knee Joint with Synthetic Substitute, Cemented, Open Approach (ICD-10-PCS; principal; 2019-03-19 13:00)
DX: M17.12 Unilateral primary osteoarthritis, left knee (principal); K51.90 Ulcerative colitis, unspecified, without complications; I10 Essential (primary) hypertension; Z96.651 Presence of right artificial knee joint; M21.162 Varus deformity, not elsewhere classified, left knee; M25.462 Effusion, left knee; N52.9 Male erectile dysfunction, unspecified; F41.9 Anxiety disorder, unspecified; F32.9 Major depressive disorder, single episode, unspecified; M79.7 Fibromyalgia; E78.5 Hyperlipidemia, unspecified; G25.81 Restless legs syndrome; I95.9 Hypotension, unspecified; M48.00 Spinal stenosis, site unspecified; M25.762 Osteophyte, left knee; Z79.899 Other long term (current) drug therapy; Z86.718 Personal history of other venous thrombosis and embolism; Z87.891 Personal history of nicotine dependence
CPT/HCPCS: 36415; 80048; 85014; 85018; 85049; A9270-GY; C1776; G8978-GP-CJ; G8979-GP-CI; J0690; J1100; J1885; J2250; J2270; J2704; J2795; J3010